=== PATIENT | female | born 1960 | race American Indian/Alaskan Native ===

== ENCOUNTER 2021-11-20 21:26 | Inpatient (IN) | payer MEDICAID ==
[2021-11-20] MEDS ORDERED: FLUORESCEIN 1 MG STRIP OP ONE (23:47)
[2021-11-20] MEDS ORDERED: HYDROmorphone 0.5 MG/0.5 ML INJ IV ONE (23:47)
[2021-11-20] MEDS ORDERED: TETRACAINE 0.5% OPHTH SOLN 4ML OS STA (23:47)
[2021-11-20] MEDS ORDERED: SODIUM CHLORIDE 0.9% 500 ML 500 ML IV ONE (23:47)
--- NOTE | 2021-11-20 23:48 | Emergency Department Report ---
ED General Adult HPI - General Chief complaint: Skin Rash Stated complaint: RASH Time Seen by Provider: 11/20/21 23:47 Source: patient, EMS ( EMS documentation not available at time of chart dictation ), RN notes reviewed Mode of arrival: Stretcher Limitations: Physical Limitation - History of Present Illness Initial comments: The patient was evaluated in the emergency department for symptoms described in the history of present illness. He/she was evaluated in the context of the global COVID-19 pandemic, which necessitated consideration that the patient might be at risk for infection with the virus that causes COVID-19. Institutional protocols and algorithms that pertain to the evaluation of patients at risk for COVID-19 are in a state of rapid change based on information released by regulatory bodies including the CDC and federal and state organizations. These policies and algorithms were followed during the patient's care in the emergency department. Please note that these policies, procedures and recommendations changed on a rapid basis. Nephrology: Dr. Valdez This is a 61-year-old female with a history of renal insufficiency, not on hemodialysis, hypertension, lupus, on Eliquis, for unclear reasons, PAD, reported bilateral lower extremity amputations, who presents to the ER today with a complaint of left supraorbital rash and pain for the past day or so. No loss of vision that she is aware of. No ocular pain. No additional injuries or complaints. She does not think she has had a chickenpox vaccine. She is not sure if she has had chickenpox in the past. To the patient's knowledge, she has not had shingles in the past -: days(s) Location: face Radiation: non-radiation Quality: aching, other (Burning aching and constant) Consistency: constant Improves with: medication Worsens with: movement - Related Data Allergies Allergy/AdvReac Type Severity Reaction Status Date / Time No Known Allergies Allergy Verified 11/20/21 23:57 ED Review of Systems ROS: Stated complaint: ALLERGIC REACTION Other details as noted in HPI Constitutional: denies: fever Eyes: eye discharge. denies: eye pain Respiratory: denies: cough Cardiovascular: denies: chest pain Gastrointestinal: denies: abdominal pain Skin: rash, lesions Neurological: weakness ED Past Medical Hx - Past Medical History Hx CVA: Yes ED Physical Exam - General Limitations: Physical Limitation General appearance: alert, anxious, in distress, obese - Head Head exam: Present: normocephalic - Eye Eye exam: Present: EOMI, periorbital swelling, periorbital tenderness, other (Fluorescein examination of the left eye shows no fluorescein uptake, no tendrils, no dendritic signs, and a negative Carri sign.). Absent: normal appearance (There is left supraorbital zoster rash.), nystagmus - ENT ENT exam: Present: normal exam, normal orophraynx, mucous membranes moist, normal external ear exam - Neck Neck exam: Present: normal inspection, full ROM. Absent: tenderness, meningismus - Respiratory Respiratory exam: Present: decreased breath sounds. Absent: respiratory distress, rhonchi, stridor - Cardiovascular Cardiovascular Exam: Present: normal rhythm, tachycardia, normal heart sounds. Absent: systolic murmur, diastolic murmur, rubs, gallop - GI/Abdominal GI/Abdominal exam: Present: soft. Absent: distended, tenderness, guarding, rebound, rigid, pulsatile mass - Extremities Exam Extremities exam: Present: full ROM (Left arm. Left leg. Contracture noted to the right arm.), other (2+ radial pulses noted in the bilateral upper extremities). Absent: normal inspection (Bilateral lower extremity amputations, chronic) - Back Exam Back exam: Present: normal inspection. Absent: tenderness, CVA tenderness (R), CVA tenderness (L), paraspinal tenderness, vertebral tenderness - Neurological Exam Neurological exam: Present: alert, other (There is no facial droop. The tongue is midline. EOMI. 5 out of 5 strength in 4 extremities) - Psychiatric Psychiatric exam: Present: anxious - Skin Skin exam: Present: warm, rash, erythema, other (Left-sided V1 zoster lesion with erythema and crusting) ED Course Vital Signs 11/20/21 11/20/21 11/21/21 21:26 23:52 00:00 Temperature 97 F L Pulse Rate 112 H Respiratory 18 Rate Blood Pressure 174/100 O2 Sat by Pulse 96 100 100 Oximetry 11/21/21 11/21/21 11/21/21 00:16 00:20 00:31 Temperature Pulse Rate 75 Respiratory 18 18 Rate Blood Pressure 181/103 O2 Sat by Pulse 100 98 98 Oximetry 11/21/21 11/21/21 11/21/21 00:45 01:01 01:15 Temperature Pulse Rate 72 75 76 Respiratory 19 19 19 Rate Blood Pressure 181/103 172/104 172/104 O2 Sat by Pulse 98 97 96 Oximetry ED Medical Decision Making - Lab Data Result diagrams: 11/20/21 23:52 11/20/21 23:52 Vital Signs 11/20/21 11/20/21 11/21/21 21:26 23:52 00:00 Temperature 97 F L Pulse Rate 112 H Respiratory 18 Rate Blood Pressure 174/100 O2 Sat by Pulse 96 100 100 Oximetry 11/21/21 11/21/21 11/21/21 00:16 00:20 00:31 Temperature Pulse Rate 75 Respiratory 18 18 Rate Blood Pressure 181/103 O2 Sat by Pulse 100 98 98 Oximetry 11/21/21 11/21/21 11/21/21 00:45 01:01 01:15 Temperature Pulse Rate 72 75 76 Respiratory 19 19 19 Rate Blood Pressure 181/103 172/104 172/104 O2 Sat by Pulse 98 97 96 Oximetry Lab Results 11/20/21 11/20/21 11/20/21 Range/Units 23:52 23:52 23:52 WBC 3.4 L (4.5-11.0) K/mm3 RBC 4.01 (3.65-5.03) M/mm3 Hgb 11.0 (10.1-14.3) gm/dl Hct 34.4 (30.3-42.9) % MCV 86 (79-97) fl MCH 27 L (28-32) pg MCHC 32 (30-34) % RDW 15.1 (13.2-15.2) % Plt Count 210 (140-440) K/mm3 PT 17.0 H (12.2-14.9) Sec. INR 1.23 H (0.87-1.13) Sodium 137 (137-145) mmol/L Potassium 5.2 H (3.6-5.0) mmol/L Chloride 104.8 (98-107) mmol/L Carbon Dioxide 14 L (22-30) mmol/L Anion Gap 23 mmol/L BUN 65 H (7-17) mg/dL Creatinine 8.7 H (0.6-1.2) mg/dL Estimated GFR 5 ml/min BUN/Creatinine Ratio 7 % Glucose 92 (65-100) mg/dL Calcium 7.0 L (8.4-10.2) mg/dL Total Bilirubin 0.40 (0.1-1.2) mg/dL AST 252 H (5-40) units/L ALT 142 H (7-56) units/L Alkaline Phosphatase 111 (35-129) units/L Total Creatine Kinase 79 (30-135) units/L Total Protein 8.7 H (6.3-8.2) g/dL Albumin 3.5 L (3.9-5) g/dL Albumin/Globulin Ratio 0.7 % - Medical Decision Making Differential diagnosis, including but not limited to: Shingles, zoster, hypertension, chronic renal insufficiency Assessment and plan: 61-year-old female presenting with a primary complaint of zoster in the left-sided V1 distribution. This is isolated, and not disseminated. The globe is not involved, and there is no dendrite, tendrils, and there is a negative Carri sign. EOMI. There appears to be reactive chemosis. Start patient on acyclovir 200 mg, every 12 hours, given GFR of 5. She received hydromorphone for pain, and this improved her pain. Transaminitis is of uncertain chronicity and duration. Recommend admission to the medical service for observation, and evaluation of chronic renal insufficiency. Patient is agreeable to the plan of care. Contacted covering nephrology on-call, Dr. López. She is covering for Dr. Valdez. Nephrology will follow in consultation. Hospital physicianChapis to admit Give gentle fluids for metabolic acidosis. Medical decision makin-year-old female, immune compromise, poor mobility, left-sided V1 zoster, without globe involvement at this time, complicated by renal insufficiency and metabolic acidosis, requires renal dosing of acyclovir, and close monitoring. Critical care attestation.: If time is entered above; I have spent that time in minutes in the direct care of this critically ill patient, excluding procedure time. ED Disposition Clinical Impression: Zoster, Chronic renal insufficiency, stage V, Metabolic acidosis Disposition: ADMITTED INPATIENT Is pt being admited?: Yes Does the pt Need Aspirin: No Condition: Fair
[2021-11-21 00:30] LABS: Hematocrit 34.4 % (30.3-42.9); Mean Corpuscular HGB Conc 32 % (30-34); Mean Corpuscular Volume 86 fl (79-97); Platelet Count 210 K/mm3 (140-440); Red Blood Count 4.01 M/mm3 (3.65-5.03); Red Cell Distribution Width 15.1 % (13.2-15.2)
[2021-11-21 00:43] LABS: INR 1.23 (0.87-1.13)
[2021-11-21 00:48] LABS: Albumin 3.5 g/dL (3.9-5)
[2021-11-21] MEDS ORDERED: SODIUM CHLORIDE 0.9% IV STA (01:42)
[2021-11-21] MEDS ORDERED: ACYCLOVIR IV STA (01:42)
[2021-11-21] MEDS: hydrALAZINE 20 MG/1 ML INJ IV PRN (05:00)
[2021-11-21] MEDS ORDERED: MORPHINE 2 MG/1 ML INJ IV PRN (05:04)
[2021-11-21] MEDS ORDERED: ALBUTEROL 2.5 MG/3 ML NEBU IH PRN (05:04)
[2021-11-21] MEDS ORDERED: ACETAMINOPHEN 325 MG TAB PO PRN (05:04)
[2021-11-21] MEDS ORDERED: ONDANSETRON 4 MG/2 ML INJ IV PRN (05:04)
[2021-11-21] MEDS ORDERED: hydrALAZINE 20 MG/1 ML INJ IV PRN (05:09)
--- NOTE | 2021-11-21 05:12 | History and Physical Report ---
History of Present Illness Date of examination: 11/21/21 Date of admission: 11/21/21 Chief complaint: Zoster infection Skin rash History of present illness: 61-year-old female with a history of renal insufficiency, not on hemodialysis, hypertension, lupus, on Eliquis, for unclear reasons, PAD, reported bilateral lower extremity amputations, who presents to the ER today with a complaint of left supraorbital rash and pain for the past day or so. No loss of vision that she is aware of. No ocular pain. No additional injuries or complaints. She does not think she has had a chickenpox vaccine. She is not sure if she has had chickenpox in the past. To the patient's knowledge, she has not had shingles in the past In the emergency room patient is found to have BUN of 65 creatinine 8.7, potassium 5.2 so going to admit the patient will consult nephrology for evaluation also will consult infectious disease for zoster infection Past History Past Medical History: renal failure, stroke, other (Lupus, PAD) Past Surgical History: Other (Bilateral lower extremity amputation) Medications and Allergies Allergies Allergy/AdvReac Type Severity Reaction Status Date / Time No Known Allergies Allergy Verified 11/20/21 23:57 Active Meds: Active Medications Acetaminophen (Acetaminophen 325 Mg Tab) 650 mg PO Q4H PRN PRN Reason: Pain MILD(1-3)/Fever >100.5/DAVIS Albuterol (Albuterol 2.5 Mg/3 Ml Nebu) 2.5 mg IH Q3HRT PRN PRN Reason: Shortness Of Breath Albuterol/Ipratropium (Ipratropium/Albuterol Sulfate 3 Ml Ampul.Neb) 1 ampul IH Q6HRT JIMMY Famotidine (Famotidine 20 Mg Tab) 20 mg PO BID JIMMY Heparin Sodium (Porcine) (Heparin 5,000 Unit/1 Ml Vial) 5,000 unit SUB-Q Q12HR JIMMY Sodium Chloride (Nacl 0.45% 1000 Ml) 1,000 mls @ 100 mls/hr IV DIRECT JIMMY Acyclovir 750 mg/ Sodium (Chloride) 115 mls @ 100 mls/hr IV Q8HR JIMMY; Protocol Morphine Sulfate (Morphine 2 Mg/1 Ml Inj) 2 mg IV Q4H PRN PRN Reason: Pain, Moderate (4-6) Morphine Sulfate (Morphine 4 Mg/1 Ml Inj) 4 mg IV Q4H PRN PRN Reason: Pain , Severe (7-10) Ondansetron HCl (Ondansetron 4 Mg/2 Ml Inj) 4 mg IV Q8H PRN PRN Reason: Nausea And Vomiting Sodium Chloride (Sodium Chloride 0.9% 10 Ml Flush Syringe) 10 ml IV BID JIMMY Sodium Chloride (Sodium Chloride 0.9% 10 Ml Flush Syringe) 10 ml IV PRN PRN PRN Reason: LINE FLUSH Review of Systems All systems: negative Constitutional: other (Skin rash, zoster infection) Exam - Constitutional Vitals: Temp Pulse Resp BP Pulse Ox 97 F L 108 H 22 188/131 63 L 11/20/21 21:26 11/21/21 03:15 11/21/21 03:15 11/21/21 03:15 11/21/21 03:15 General appearance: Present: no acute distress, well-nourished - EENT Eyes: Present: PERRL ENT: hearing intact, clear oral mucosa, other ( left supraorbital rash and pain) - Neck Neck: Present: supple, normal ROM - Respiratory Respiratory effort: normal Respiratory: bilateral: CTA - Cardiovascular Heart Sounds: Present: S1 & S2. Absent: rub, click - Extremities Extremities: pulses symmetrical, No edema Peripheral Pulses: within normal limits - Abdominal General gastrointestinal: Present: soft, non-tender, non-distended, normal bowel sounds Female genitourinary: Present: normal - Integumentary Integumentary: Present: clear, warm, dry - Musculoskeletal Musculoskeletal: gait normal, strength equal bilaterally - Psychiatric Psychiatric: appropriate mood/affect, intact judgment & insight - Neurologic Neurologic: CNII-XII intact, moves all extremities Results - Labs CBC & Chem 7: 11/20/21 23:52 11/20/21 23:52 Labs: Laboratory Last Values WBC 3.4 K/mm3 (4.5-11.0) L 11/20/21 23:52 RBC 4.01 M/mm3 (3.65-5.03) 11/20/21 23:52 Hgb 11.0 gm/dl (10.1-14.3) 11/20/21 23:52 Hct 34.4 % (30.3-42.9) 11/20/21 23:52 MCV 86 fl (79-97) 11/20/21 23:52 MCH 27 pg (28-32) L 11/20/21 23:52 MCHC 32 % (30-34) 11/20/21 23:52 RDW 15.1 % (13.2-15.2) 11/20/21 23:52 Plt Count 210 K/mm3 (140-440) 11/20/21 23:52 PT 17.0 Sec. (12.2-14.9) H 11/20/21 23:52 INR 1.23 (0.87-1.13) H 11/20/21 23:52 Sodium 137 mmol/L (137-145) 11/20/21 23:52 Potassium 5.2 mmol/L (3.6-5.0) H 11/20/21 23:52 Chloride 104.8 mmol/L (98-107) 11/20/21 23:52 Carbon Dioxide 14 mmol/L (22-30) L 11/20/21 23:52 Anion Gap 23 mmol/L 11/20/21 23:52 BUN 65 mg/dL (7-17) H 11/20/21 23:52 Creatinine 8.7 mg/dL (0.6-1.2) H 11/20/21 23:52 Estimated GFR 5 ml/min 11/20/21 23:52 BUN/Creatinine Ratio 7 % 11/20/21 23:52 Glucose 92 mg/dL (65-100) 11/20/21 23:52 Calcium 7.0 mg/dL (8.4-10.2) L 11/20/21 23:52 Total Bilirubin 0.40 mg/dL (0.1-1.2) 11/20/21 23:52 AST 252 units/L (5-40) H 11/20/21 23:52 ALT 142 units/L (7-56) H 11/20/21 23:52 Alkaline Phosphatase 111 units/L (35-129) 11/20/21 23:52 Total Creatine Kinase 79 units/L (30-135) 11/20/21 23:52 Total Protein 8.7 g/dL (6.3-8.2) H 11/20/21 23:52 Albumin 3.5 g/dL (3.9-5) L 11/20/21 23:52 Albumin/Globulin Ratio 0.7 % 11/20/21 23:52 Assessment and Plan VTE prophylaxis?: Chemical Plan of care discussed with patient/family: Yes - Patient Problems (1) Zoster Current Visit: Yes Status: Acute Plan to address problem: Admit the patient to the medical telemetry. We will put the patient on acyclovir 10 mg/kg IV every 8 hours. Reconsult infectious disease for evaluation. Recheck CBC BMP in the morning (2) Chronic renal insufficiency, stage V Current Visit: Yes Status: Acute Plan to address problem: Avoid nephrotoxic drug. Renally dose medication. Reconsult nephrology for evaluation. Recheck BMP in the morning (3) Lupus Current Visit: Yes Status: Acute Plan to address problem: Stable. We will continue the home medication (4) PAD (peripheral artery disease) Current Visit: Yes Status: Acute Plan to address problem: Stable. We will continue the home medication (5) Metabolic acidosis Current Visit: Yes Status: Acute Plan to address problem: Half-normal saline at the rate of 600 cc/h. We will continue the home medication. Nephrology evaluation. Recheck BMP in the morning (6) DVT prophylaxis Current Visit: Yes Status: Acute Plan to address problem: Heparin 5000 units subcu every 12 hours for DVT prophylaxis. Pepcid 20 mg p.o. twice daily for GI prophylaxis. Patient is a full code
[2021-11-21] MEDS ORDERED: SODIUM CHLORIDE 0.9% IV SCH (06:00)
[2021-11-21] MEDS ORDERED: SODIUM CHLORIDE 0.45% 1000 ML 1,000 ML IV SCH (06:00)
[2021-11-21] MEDS ORDERED: ACYCLOVIR IV SCH (06:00)
[2021-11-21] MEDS: MORPHINE 4 MG/1 ML INJ IV PRN ×2 (08:34→14:06)
[2021-11-21] MEDS ORDERED: hydrALAZINE 20 MG/1 ML INJ IV NR (08:44)
--- NOTE | 2021-11-21 08:48 | Event Note ---
Date: 11/21/21 Patient was admitted this morning at 5:00 Nurse reports that patient's blood pressures are uncontrolled 192/123 patient has 100 mg of metoprolol due for 10:00 advised to give now Also added and IV hydralazine as needed and p.o. hydralazine
[2021-11-21] MEDS ORDERED: METOPROLOL TARTRATE 100 MG TAB PO SCH (10:00)
[2021-11-21] MEDS ORDERED: FAMOTIDINE 20 MG TAB PO SCH (10:00)
[2021-11-21] MEDS: HEPARIN 5,000 UNIT/1 ML VIAL SUB-Q SCH ×2 (10:05→22:49)
[2021-11-21] MEDS: FAMOTIDINE 10 MG TAB PO SCH ×2 (10:06→22:49)
[2021-11-21] MEDS: IPRATROPIUM/ALBUTEROL SULFATE 3 ML AMPUL.NEB IH SCH ×2 (10:08→14:14)
[2021-11-21] MEDS: METOPROLOL TARTRATE 100 MG TAB PO SCH (10:35)
--- NOTE | 2021-11-21 14:00 | Progress Note ---
Assessment and Plan Assessment and plan: 61-year-old female patient with history of chronic kidney disease follows with Dr. Valdez not on dialysis lupus, hypertension ,peripheral artery disease status post bilateral amputation presented to the emergency room with the complaints of left supraorbital and forehead rash/shingles for the last 4-5 days.Patient is unable to give the details. She reports that she discussed with her primary care physician , And he gave some treatment instructions --Zoster/shingles[left upper supraorbital area and forehead] Pain medications, local care Continue acyclovir, contact isolation Follow ID evaluation recommendations Wound care if needed --Chronic renal insufficiency, stage V Not on dialysis closely , follows with Dr. Valdez monitor renal function, avoid nephrotoxins Follow nephrology recommendations Gentle hydration -- History of lupus upus Continue supportive care Immunocompromised -- History of PAD (peripheral artery disease) Bilateral LE amputations Supportive care, --Bilateral lower extremity amputations; Due to peripheral arterial disease --History of hypertensive urgency; present on admission Resume all home antihypertensives and as needed medications Closely monitor blood pressures --Metabolic acidosis Due to chronic kidney disease stage V Continue IV fluids, nephrology following --Full CODE STATUS -DVT prophylaxis Subcu Heparin 5000 units every 12 hours GI prophylaxis oral Pepcid We will closely monitor the patient and adjust management as needed follow consults evaluation and recommendations Plan of care reviewed with the patient and her nurse Try to contact family for more medical information Prolonged care inpatient; 35 minutes Advance care planning; +30 minutes Patient's condition discussed with the patient, diagnosis discussed, tests and reports discussed Treatment plan discussed, patient had questions, answered all of them Try to contact family and get more medical information. History Interval history: I have seen and examined the patient at the bedside in ER awaiting room assignment Patient's chart and medications reviewed, vital signs reviewed Patient was admitted early this morning with the complaints of rash on left supraorbital area and around the left eye for the last 1 week, did not see a physician as patient refused to come to the hospital Now complains of some pain and eye watering on the left side Afebrile, patient is on IV acyclovir Hospitalist Physical - Constitutional Vitals: Temp Pulse Resp BP Pulse Ox 97 F L 77 17 156/95 97 11/20/21 21:26 11/21/21 12:15 11/21/21 12:15 11/21/21 12:15 11/21/21 12:15 General appearance: Present: mild distress, well-nourished, other (Shingles rash on the left supraorbital/forehead area, upper aspect ) - EENT Eyes: Present: PERRL (Left eye mild swelling, watering, supraorbital rash. Matting) - Neck Neck: Present: supple, normal ROM - Respiratory Respiratory effort: normal Respiratory: bilateral: diminished, negative: rales, rhonchi, wheezing - Cardiovascular Rhythm: regular Heart Sounds: Present: S1 & S2 - Extremities Extremities: no ischemia, No edema, abnormal (Bilateral AKA/BKA) - Abdominal General gastrointestinal: soft, non-tender, non-distended - Integumentary Integumentary: Present: clear, warm, rash (Left supraorbital and around the upper eyelid) - Psychiatric Psychiatric: appropriate mood/affect, cooperative - Neurologic Neurologic: moves all extremities Results - Labs CBC & Chem 7: 11/20/21 23:52 11/20/21 23:52 Labs: Laboratory Last Values WBC 3.4 K/mm3 (4.5-11.0) L 11/20/21 23:52 RBC 4.01 M/mm3 (3.65-5.03) 11/20/21 23:52 Hgb 11.0 gm/dl (10.1-14.3) 11/20/21 23:52 Hct 34.4 % (30.3-42.9) 11/20/21 23:52 MCV 86 fl (79-97) 11/20/21 23:52 MCH 27 pg (28-32) L 11/20/21 23:52 MCHC 32 % (30-34) 11/20/21 23:52 RDW 15.1 % (13.2-15.2) 11/20/21 23:52 Plt Count 210 K/mm3 (140-440) 11/20/21 23:52 PT 17.0 Sec. (12.2-14.9) H 11/20/21 23:52 INR 1.23 (0.87-1.13) H 11/20/21 23:52 Sodium 137 mmol/L (137-145) 11/20/21 23:52 Potassium 5.2 mmol/L (3.6-5.0) H 11/20/21 23:52 Chloride 104.8 mmol/L (98-107) 11/20/21 23:52 Carbon Dioxide 14 mmol/L (22-30) L 11/20/21 23:52 Anion Gap 23 mmol/L 11/20/21 23:52 BUN 65 mg/dL (7-17) H 11/20/21 23:52 Creatinine 8.7 mg/dL (0.6-1.2) H 11/20/21 23:52 Estimated GFR 5 ml/min 11/20/21 23:52 BUN/Creatinine Ratio 7 % 11/20/21 23:52 Glucose 92 mg/dL (65-100) 11/20/21 23:52 Calcium 7.0 mg/dL (8.4-10.2) L 11/20/21 23:52 Total Bilirubin 0.40 mg/dL (0.1-1.2) 11/20/21 23:52 AST 252 units/L (5-40) H 11/20/21 23:52 ALT 142 units/L (7-56) H 11/20/21 23:52 Alkaline Phosphatase 111 units/L (35-129) 11/20/21 23:52 Total Creatine Kinase 79 units/L (30-135) 11/20/21 23:52 Total Protein 8.7 g/dL (6.3-8.2) H 11/20/21 23:52 Albumin 3.5 g/dL (3.9-5) L 11/20/21 23:52 Albumin/Globulin Ratio 0.7 % 11/20/21 23:52 Active Medications - Current Medications Current Medications: Generic Name Dose Route Start Last Admin Trade Name Freq PRN Reason Stop Dose Admin Acetaminophen 650 mg 11/21/21 05:04 Acetaminophen 325 Mg Tab PO Q4H PRN Pain MILD(1-3)/Fever >100.5/DAVIS Albuterol 2.5 mg 11/21/21 05:04 Albuterol 2.5 Mg/3 Ml Nebu IH Q3HRT PRN Shortness Of Breath Albuterol/Ipratropium 1 ampul 11/21/21 08:00 11/21/21 10:08 Ipratropium/Albuterol Sulfate 3 Ml Ampul.Neb IH 1 ampul Q6HRT JIMMY Administration Famotidine 10 mg 11/21/21 10:00 11/21/21 10:06 Famotidine 10 Mg Tab PO 10 mg BID JIMMY Administration Heparin Sodium (Porcine) 5,000 unit 11/21/21 10:00 11/21/21 10:05 Heparin 5,000 Unit/1 Ml Vial SUB-Q 5,000 unit Q12HR JIMMY Administration Hydralazine HCl 10 mg 11/21/21 05:15 11/21/21 05:00 Hydralazine 20 Mg/1 Ml Inj IV 10 mg Q6H PRN Administration Hypertension Hydralazine HCl 50 mg 11/21/21 14:00 Hydralazine 25 Mg Tab PO Q8HR JIMMY Sodium Chloride 1,000 mls @ 100 mls/hr 11/21/21 06:00 11/21/21 05:00 Nacl 0.45% 1000 Ml IV 100 mls/hr DIRECT JIMMY Administration Acyclovir 320 mg/ Sodium 106.4 mls @ 100 mls/hr 11/21/21 18:00 Chloride IV Q24H [facility] Protocol Metoprolol Tartrate 100 mg 11/21/21 10:00 11/21/21 10:35 Metoprolol Tartrate 100 Mg Tab PO 100 mg QDAY JIMMY Administration Morphine Sulfate 2 mg 11/21/21 05:04 Morphine 2 Mg/1 Ml Inj IV Q4H PRN Pain, Moderate (4-6) Morphine Sulfate 4 mg 11/21/21 05:04 11/21/21 08:34 Morphine 4 Mg/1 Ml Inj IV 4 mg Q4H PRN Administration Pain , Severe (7-10) Ondansetron HCl 4 mg 11/21/21 05:04 Ondansetron 4 Mg/2 Ml Inj IV Q8H PRN Nausea And Vomiting Sodium Chloride 10 ml 11/21/21 10:00 11/21/21 10:36 Sodium Chloride 0.9% 10 Ml Flush Syringe IV 10 ml BID JIMMY Administration Sodium Chloride 10 ml 11/21/21 05:04 Sodium Chloride 0.9% 10 Ml Flush Syringe IV PRN PRN LINE FLUSH
[2021-11-21] MEDS: hydrALAZINE 25 MG TAB PO SCH ×2 (14:06→22:49)
--- NOTE | 2021-11-21 16:32 | Consultation ---
History of Present Illness - Reason for Consult Consult date: 11/21/21 chronic renal failure - History of Present Illness Mrs. Prajapati is a 61yo with stage V CKD (SCr 4.8mg/dL in Apr 2021), hype rtension, SLE who presents to the ED with 1 day hx of left supraorbital rash Presently, she denies nausea, vomiting, loss of appetite. She denies SOB. Past History Past Medical History: renal failure, stroke, other (Lupus, PAD) Past Surgical History: Other (Bilateral lower extremity amputation) Medications and Allergies Allergies Allergy/AdvReac Type Severity Reaction Status Date / Time No Known Allergies Allergy Verified 11/20/21 23:57 Home Medications Medication Instructions Recorded Confirmed Last Taken Type Metoprolol 100 mg PO DAILY 11/21/21 11/21/21 11/20/21 History Active Meds: Active Medications Acetaminophen (Acetaminophen 325 Mg Tab) 650 mg PO Q4H PRN PRN Reason: Pain MILD(1-3)/Fever >100.5/DAVIS Albuterol (Albuterol 2.5 Mg/3 Ml Nebu) 2.5 mg IH Q3HRT PRN PRN Reason: Shortness Of Breath Albuterol/Ipratropium (Ipratropium/Albuterol Sulfate 3 Ml Ampul.Neb) 1 ampul IH Q6HRT [facility] Last Admin: 11/21/21 14:14 Dose: 1 ampul Famotidine (Famotidine 10 Mg Tab) 10 mg PO BID [facility] Last Admin: 11/21/21 10:06 Dose: 10 mg Furosemide (Furosemide 40 Mg/4 Ml Inj) 40 mg IV ONCE ONE Stop: 11/21/21 17:01 Heparin Sodium (Porcine) (Heparin 5,000 Unit/1 Ml Vial) 5,000 unit SUB-Q Q12HR JIMMY Last Admin: 11/21/21 10:05 Dose: 5,000 unit Hydralazine HCl (Hydralazine 20 Mg/1 Ml Inj) 10 mg IV Q6H PRN PRN Reason: Hypertension Last Admin: 11/21/21 05:00 Dose: 10 mg Hydralazine HCl (Hydralazine 25 Mg Tab) 50 mg PO Q8HR [facility] Last Admin: 11/21/21 14:06 Dose: 50 mg Acyclovir 320 mg/ Sodium (Chloride) 106.4 mls @ 100 mls/hr IV Q24H [facility]; Protocol Metoprolol Tartrate (Metoprolol Tartrate 100 Mg Tab) 100 mg PO QDAY [facility] Last Admin: 11/21/21 10:35 Dose: 100 mg Morphine Sulfate (Morphine 2 Mg/1 Ml Inj) 2 mg IV Q4H PRN PRN Reason: Pain, Moderate (4-6) Ondansetron HCl (Ondansetron 4 Mg/2 Ml Inj) 4 mg IV Q8H PRN PRN Reason: Nausea And Vomiting Oxycodone/Acetaminophen (Oxycodone /Acetaminophen 5-325mg Tab) 1 tab PO Q6H PRN PRN Reason: Pain, Moderate (4-6) Sodium Chloride (Sodium Chloride 0.9% 10 Ml Flush Syringe) 10 ml IV BID [facility] Last Admin: 11/21/21 10:36 Dose: 10 ml Sodium Chloride (Sodium Chloride 0.9% 10 Ml Flush Syringe) 10 ml IV PRN PRN PRN Reason: LINE FLUSH Review of Systems All systems: negative Exam - Vital Signs Vital signs: Vital Signs Temp Pulse Resp BP Pulse Ox 97 F L 112 H 18 174/100 96 11/20/21 21:26 11/20/21 21:26 11/20/21 21:26 11/20/21 21:26 11/20/21 21:26 - General Appearance General appearance: well-developed, well-nourished EENT: other (vesicular rash involving left eye, forehead, mandaeism; crusting lesions) Respiratory: Clear to Ascultation Heart: regular, S1S2 Gastrointestinal: Present: normal Integumentary: warm and dry Musculoskeletal: Present: other (bilateral LE amputation) Results - Lab Results 11/20/21 23:52 11/20/21 23:52 Most recent lab results Calcium 7.0 mg/dL (8.4-10.2) L 11/20/21 23:52 Assessment and Plan Impression: * Stage V CKD --SCr 4.8mg/dL in Apr 2021 * Herpes zoster * Hyperkalemia, mild * Metabolic acidosis Plan: * Patient with progression of chronic kidney disease. She reports that dialysis was discussed at previous nephrology follow up visit. Advised patient of need for hemodialysis. Patient adamantly refuses dialysis. She states that her mother on dialysis. Patient advised that without dialysis, she will likely from kidney failure. Patient voiced understanding. * Start Na bicarbonate * Antiviral per primary team * ID consultation pending * Dose medications for renal function * Avoid potential nephrotoxins * AM labs
[2021-11-21] MEDS ORDERED: FUROSEMIDE 40 MG/4 ML INJ IV ONE (17:00)
--- NOTE | 2021-11-21 17:16 | XRay Report ---
CHEST 1 VIEW 11/21/2021 4:46 PM INDICATION / CLINICAL INFORMATION: Cough. COMPARISON: None available. FINDINGS: The patient is rotated. SUPPORT DEVICES: None. HEART / MEDIASTINUM: There is a hiatal hernia. LUNGS / PLEURA: There is suboptimal evaluation of the right lung secondary to patient rotation. There appears to be mild venous congestion. No pneumothorax. ADDITIONAL FINDINGS: No significant additional findings. IMPRESSION: 1. Mild venous congestion. There is a hiatal hernia. The right lung is not well evaluated due to ed ent rotation. Signer Name: Keith No MD Signed: 11/21/2021 5:11 PM Workstation Name: [id number]
[2021-11-21] MEDS: ACYCLOVIR IV SCH (18:44)
[2021-11-21] MEDS: SODIUM CHLORIDE 0.9% IV SCH (18:44)
[2021-11-22] MEDS: hydrALAZINE 25 MG TAB PO SCH ×3 (05:47→21:16)
[2021-11-22 06:44] LABS: Basophils % (Auto) 0.6 % (0.0-1.8); Eosinophils # (Auto) 0.1 K/mm3 (0.0-0.4); Eosinophils % (Auto) 1.9 % (0.0-4.3); Hematocrit 34.3 % (30.3-42.9); Hemoglobin 11.1 gm/dl (10.1-14.3); Lymphocytes # (Auto) 1.8 K/mm3 (1.2-5.4); Lymphocytes % (Auto) 40.9 % (13.4-35.0); Mean Corpuscular HGB Conc 33 % (30-34); Mean Corpuscular Volume 86 fl (79-97); Monocytes # (Auto) 0.5 K/mm3 (0.0-0.8); Monocytes % (Auto) 10.8 % (0.0-7.3); Platelet Count 186 K/mm3 (140-440); Red Blood Count 3.97 M/mm3 (3.65-5.03); Red Cell Distribution Width 15.7 % (13.2-15.2)
[2021-11-22 06:57] LABS: Calcium 6.1 mg/dL (8.4-10.2)
[2021-11-22] MEDS ORDERED: SODIUM POLYSTYRENE 15 GM/60 ML ORAL LIQD PO NR (09:30)
--- NOTE | 2021-11-22 09:41 | Progress Note ---
Assessment and Plan Impression: * Stage V CKD --SCr 4.8mg/dL in Apr 2021 * Herpes zoster * Hyperkalemia * Metabolic acidosis * Secondary Hyperparathyroidism * Azotemia * Transaminitis * Hypertension Plan: * Patient with progression of chronic kidney disease. Patient well known to myself for CKD, has been refusing dialysis in generally but has stated "would do it" if needed. Advised patient of need for hemodialysis now given current renal indices. Patient adamantly refuses dialysis for now, wants to go with medical therapies. She states that her mother on dialysis. Patient advised that without dialysis, she will likely from kidney failure. Manasa ent voiced understanding. * Of note, patient has had difficulty with transportation as outpatient which has made regular doctors visits difficult to coordinate- high risk for decompensation given her social issues (never followed with hematology, vascular as recommended) * Continue Na bicarbonate, may need IV HCO3 if continuing to worsen * Kayexlyate for hyperkalemia, may need regularly * Restart home calcitriol, calcium acetate * Antiviral per primary team, ID * Dose medications for renal function * Avoid potential nephrotoxins * AM labs Subjective Date of service: 11/22/21 Interval history: Seen at bedside. Patient denies any uremic symptoms currently. Notes that she can open eye if she needs to Objective - Exam Narrative Exam: General appearance: well-developed, well-nourished EENT: other (vesicular rash involving left eye, forehead, yazidi; crusting lesions) Respiratory: Clear to Ascultation Heart: regular, S1S2 Gastrointestinal: Present: normal Integumentary: warm and dry Musculoskeletal: Present: other (bilateral LE amputation) - Vital Signs Vital signs: Vital Signs - 12hr 11/21/21 11/22/21 11/22/21 22:00 02:23 02:35 Temperature Pulse Rate 115 H Respiratory Rate Blood Pressure [Right] O2 Sat by Pulse 98 98 Oximetry 11/22/21 11/22/21 04:23 09:13 Temperature 100.0 F H Pulse Rate 119 H Respiratory 20 Rate Blood Pressure 151/97 [Right] O2 Sat by Pulse 96 96 Oximetry - Lab 11/22/21 06:08 11/22/21 06:08 Most recent lab results Calcium 6.1 mg/dL (8.4-10.2) L 11/22/21 06:08 Medications & Allergies - Medications Allergies/Adverse Reactions: Allergies No Known Allergies Allergy (Verified 11/20/21 23:57) Home Medications: Home Medications Medication Instructions Recorded Confirmed Last Taken Type Metoprolol 100 mg PO DAILY 11/21/21 11/21/21 11/20/21 History Active Medications: Generic Name Dose Route Start Last Admin Trade Name Freq PRN Reason Stop Dose Admin Acetaminophen 650 mg 11/21/21 05:04 Acetaminophen 325 Mg Tab PO Q4H PRN Pain MILD(1-3)/Fever >100.5/DAVIS Albuterol 2.5 mg 11/21/21 05:04 Albuterol 2.5 Mg/3 Ml Nebu IH Q3HRT PRN Shortness Of Breath Famotidine 10 mg 11/21/21 10:00 11/21/21 22:49 Famotidine 10 Mg Tab PO 10 mg BID JIMMY Administration Heparin Sodium (Porcine) 5,000 unit 11/21/21 10:00 11/21/21 22:49 Heparin 5,000 Unit/1 Ml Vial SUB-Q 5,000 unit Q12HR JIMMY Administration Hydralazine HCl 10 mg 11/21/21 05:15 11/21/21 05:00 Hydralazine 20 Mg/1 Ml Inj IV 10 mg Q6H PRN Administration Hypertension Hydralazine HCl 50 mg 11/21/21 14:00 11/22/21 05:47 Hydralazine 25 Mg Tab PO 50 mg Q8HR JIMMY Administration Acyclovir 320 mg/ Sodium 106.4 mls @ 100 mls/hr 11/21/21 18:00 11/21/21 18:44 Chloride IV 100 mls/hr Q24H JIMMY Administration Protocol Metoprolol Tartrate 100 mg 11/21/21 10:00 11/21/21 10:35 Metoprolol Tartrate 100 Mg Tab PO 100 mg QDAY JIMMY Administration Morphine Sulfate 2 mg 11/21/21 05:04 Morphine 2 Mg/1 Ml Inj IV Q4H PRN Pain, Moderate (4-6) Ondansetron HCl 4 mg 11/21/21 05:04 Ondansetron 4 Mg/2 Ml Inj IV Q8H PRN Nausea And Vomiting Oxycodone/Acetaminophen 1 tab 11/21/21 16:22 Oxycodone /Acetaminophen 5-325mg Tab PO Q6H PRN Pain, Moderate (4-6) Pneumococcal Polyvalent Vaccine 0.5 ml 11/22/21 12:00 Pneumococcal 23 Valent 0.5 Ml Vial IM 11/22/21 12:01 .ONCE ONE Sodium Bicarbonate 1,950 mg 11/22/21 08:00 Sodium Bicarbonate 650 Mg Tab PO TID JIMMY Sodium Chloride 10 ml 11/21/21 10:00 11/21/21 22:49 Sodium Chloride 0.9% 10 Ml Flush Syringe IV 10 ml BID JIMMY Administration Sodium Chloride 10 ml 11/21/21 05:04 Sodium Chloride 0.9% 10 Ml Flush Syringe IV PRN PRN LINE FLUSH Sodium Polystyrene Sulfonate 30 gm 11/22/21 09:30 Sodium Polystyrene 15 Gm/60 Ml Oral Liqd PO 11/22/21 12:30 ONCE NR
--- NOTE | 2021-11-22 10:07 | Progress Note ---
Assessment and Plan Assessment and plan: 61-year-old female patient with history of chronic kidney disease follows with Dr. Valdez not on dialysis lupus, hypertension ,peripheral artery disease status post bilateral amputation presented to the emergency room with the complaints of left supraorbital and forehead rash/shingles for the last 4-5 days.Patient is unable to give the details. She reports that she discussed with her primary care physician , And he gave some treatment instructions --Hyperkalemia; IV calcium gluconate, Kayexalate Nephrology following -Herpes zoster/shingles[left upper supraorbital area and forehead] Pain medications, local care Continue acyclovir, contact isolation Follow pending ID evaluation and recommendations Wound care if needed, without superimposed bacterial infection No visual defect, patient is able to count the fingers and read big print Patient needs ophthalmology evaluation upon discharge[no services available] Follow ID evaluation recommendations --Chronic renal insufficiency, stage V Not on dialysis closely , follows with Dr. 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 Stable Continue supportive care --History of of lupus Continue supportive care Immunocompromised -- History of PAD (peripheral artery disease) Bilateral LE amputations Supportive care, --Bilateral lower extremity amputations; Due to peripheral arterial disease --History of hypertensive urgency; present on admission Resume all home antihypertensives and as needed medications Closely monitor blood pressures --Metabolic acidosis Due to chronic kidney disease stage V Continue IV fluids, nephrology following --Full CODE STATUS -DVT prophylaxis Subcu Heparin 5000 units every 12 hours GI prophylaxis oral Pepcid We will closely monitor the patient and adjust management as needed follow consults evaluation and recommendations Plan of care reviewed with the patient and her nurse Try to contact family for more medical information Advance care planning; +30 minutes Patient's condition discussed with the patient, diagnosis discussed, tests and reports discussed Treatment plan discussed, patient had questions, answered all of them Try to contact family and get more medical information. 11/23/2019; patient is on IV acyclovir, nephrology evaluated Medications of renally dosed, gentle opening of the left eye Patient found for fevers, and read the big print. History Interval history: I have seen and examined the patient at the bedside Patient's chart and medications reviewed Patient feels slightly better Patient has severe dysarthria due to multiple strokes in the past Periorbital area and left forehead herpes zoster[of 7-9 days duration] Vital signs noted Hospitalist Physical - Constitutional Vitals: Temp Pulse Resp BP Pulse Ox 98.7 F 124 H 18 147/90 96 11/22/21 08:00 11/22/21 08:00 11/22/21 08:00 11/22/21 08:00 11/22/21 09:13 General appearance: Present: mild distress, well-nourished, other (Shingles rash on the left supraorbital/forehead area, upper aspect ) - EENT Eyes: Present: discharge (Left eyelid, edematous, zoster lesions, able to open gently, vision intact) - Neck Neck: Present: supple, normal ROM - Respiratory Respiratory effort: normal Respiratory: bilateral: diminished, negative: rales, rhonchi, wheezing - Cardiovascular Rhythm: regular Heart Sounds: Present: S1 & S2 - Extremities Extremities: no ischemia, abnormal (Bilateral amputation) Extremity abnormal: other (Right upper extremity lower extremity hemiparesis) - Abdominal General gastrointestinal: soft, non-tender, non-distended, normal bowel sounds - Integumentary Integumentary: Present: clear, warm, rash (Is also a rash left forehead and periorbital area mainly upper eyelid) - Psychiatric Psychiatric: appropriate mood/affect - Neurologic Neurologic: other (Multiple CVA with residual right-sided weakness and dysarthria) Results - Labs CBC & Chem 7: 11/22/21 06:08 11/22/21 06:08 Labs: Laboratory Last Values WBC 4.3 K/mm3 (4.5-11.0) L 11/22/21 06:08 RBC 3.97 M/mm3 (3.65-5.03) 11/22/21 06:08 Hgb 11.1 gm/dl (10.1-14.3) 11/22/21 06:08 Hct 34.3 % (30.3-42.9) 11/22/21 06:08 MCV 86 fl (79-97) 11/22/21 06:08 MCH 28 pg (28-32) 11/22/21 06:08 MCHC 33 % (30-34) 11/22/21 06:08 RDW 15.7 % (13.2-15.2) H 11/22/21 06:08 Plt Count 186 K/mm3 (140-440) 11/22/21 06:08 Lymph % (Auto) 40.9 % (13.4-35.0) H 11/22/21 06:08 [place] % (Auto) 10.8 % (0.0-7.3) H 11/22/21 06:08 Eos % (Auto) 1.9 % (0.0-4.3) 11/22/21 06:08 Baso % (Auto) 0.6 % (0.0-1.8) 11/22/21 06:08 Lymph # (Auto) 1.8 K/mm3 (1.2-5.4) 11/22/21 06:08 [place] # (Auto) 0.5 K/mm3 (0.0-0.8) 11/22/21 06:08 Eos # (Auto) 0.1 K/mm3 (0.0-0.4) 11/22/21 06:08 Baso # (Auto) 0.0 K/mm3 (0.0-0.1) 11/22/21 06:08 Seg Neutrophils % 45.8 % (40.0-70.0) 11/22/21 06:08 Seg Neutrophils # 2.0 K/mm3 (1.8-7.7) 11/22/21 06:08 PT 17.0 Sec. (12.2-14.9) H 11/20/21 23:52 INR 1.23 (0.87-1.13) H 11/20/21 23:52 Sodium 132 mmol/L (137-145) L 11/22/21 06:08 Potassium 6.2 mmol/L (3.6-5.0) H* 11/22/21 06:08 Chloride 102.0 mmol/L (98-107) 11/22/21 06:08 Carbon Dioxide 12 mmol/L (22-30) L 11/22/21 06:08 Anion Gap 24 mmol/L 11/22/21 06:08 BUN 68 mg/dL (7-17) H 11/22/21 06:08 Creatinine 9.3 mg/dL (0.6-1.2) H 11/22/21 06:08 Estimated GFR 5 ml/min 11/22/21 06:08 BUN/Creatinine Ratio 7 % 11/22/21 06:08 Glucose 86 mg/dL (65-100) 11/22/21 06:08 Calcium 6.1 mg/dL (8.4-10.2) L 11/22/21 06:08 Total Bilirubin 0.40 mg/dL (0.1-1.2) 11/20/21 23:52 AST 252 units/L (5-40) H 11/20/21 23:52 ALT 142 units/L (7-56) H 11/20/21 23:52 Alkaline Phosphatase 111 units/L (35-129) 11/20/21 23:52 Total Creatine Kinase 79 units/L (30-135) 11/20/21 23:52 Total Protein 8.7 g/dL (6.3-8.2) H 11/20/21 23:52 Albumin 3.5 g/dL (3.9-5) L 11/20/21 23:52 Albumin/Globulin Ratio 0.7 % 11/20/21 23:52 Active Medications - Current Medications Current Medications: Generic Name Dose Route Start Last Admin Trade Name Freq PRN Reason Stop Dose Admin Acetaminophen 650 mg 11/21/21 05:04 Acetaminophen 325 Mg Tab PO Q4H PRN Pain MILD(1-3)/Fever >100.5/DAVIS Albuterol 2.5 mg 11/21/21 05:04 Albuterol 2.5 Mg/3 Ml Nebu IH Q3HRT PRN Shortness Of Breath Calcitriol 0.5 mcg 11/22/21 10:00 Calcitriol 0.5 Mcg Cap PO QDAY JIMMY Calcium Acetate 1,334 mg 11/22/21 14:00 Calcium Acetate 667 Mg Cap PO TID JIMMY Famotidine 10 mg 11/21/21 10:00 11/21/21 22:49 Famotidine 10 Mg Tab PO 10 mg BID JIMMY Administration Heparin Sodium (Porcine) 5,000 unit 11/21/21 10:00 11/21/21 22:49 Heparin 5,000 Unit/1 Ml Vial SUB-Q 5,000 unit Q12HR JIMMY Administration Hydralazine HCl 10 mg 11/21/21 05:15 11/21/21 05:00 Hydralazine 20 Mg/1 Ml Inj IV 10 mg Q6H PRN Administration Hypertension Hydralazine HCl 50 mg 11/21/21 14:00 11/22/21 05:47 Hydralazine 25 Mg Tab PO 50 mg Q8HR JIMMY Administration Acyclovir 320 mg/ Sodium 106.4 mls @ 100 mls/hr 11/21/21 18:00 11/21/21 18:44 Chloride IV 100 mls/hr Q24H JIMMY Administration Protocol Calcium Gluconate 1,000 mg/ 110 mls @ 660 mls/hr 11/22/21 10:01 Sodium Chloride IV 11/22/21 10:10 ONCE ONE Metoprolol Tartrate 100 mg 11/21/21 10:00 11/21/21 10:35 Metoprolol Tartrate 100 Mg Tab PO 100 mg QDAY JIMMY Administration Morphine Sulfate 2 mg 11/21/21 05:04 Morphine 2 Mg/1 Ml Inj IV Q4H PRN Pain, Moderate (4-6) Ondansetron HCl 4 mg 11/21/21 05:04 Ondansetron 4 Mg/2 Ml Inj IV Q8H PRN Nausea And Vomiting Oxycodone/Acetaminophen 1 tab 11/21/21 16:22 Oxycodone /Acetaminophen 5-325mg Tab PO Q6H PRN Pain, Moderate (4-6) Pneumococcal Polyvalent Vaccine 0.5 ml 11/22/21 12:00 Pneumococcal 23 Valent 0.5 Ml Vial IM 11/22/21 12:01 .ONCE ONE Sodium Bicarbonate 1,950 mg 11/22/21 08:00 Sodium Bicarbonate 650 Mg Tab PO TID JIMMY Sodium Chloride 10 ml 11/21/21 10:00 11/21/21 22:49 Sodium Chloride 0.9% 10 Ml Flush Syringe IV 10 ml BID JIMMY Administration Sodium Chloride 10 ml 11/21/21 05:04 Sodium Chloride 0.9% 10 Ml Flush Syringe IV PRN PRN LINE FLUSH Sodium Polystyrene Sulfonate 30 gm 11/22/21 09:30 Sodium Polystyrene 15 Gm/60 Ml Oral Liqd PO 11/22/21 12:30 ONCE NR
[2021-11-22] MEDS ORDERED: CALCIUM GLUCONATE 1,000 MG in SODIUM CHLORIDE 0.9% 100 ML IV ONE (10:30)
[2021-11-22] MEDS ORDERED: PNEUMOCOCCAL 23 Valent 0.5 ML VIAL IM ONE (12:00)
[2021-11-22] MEDS: SODIUM BICARBONATE 650 MG TAB PO SCH ×3 (12:13→21:15)
[2021-11-22] MEDS: METOPROLOL TARTRATE 100 MG TAB PO SCH (12:13)
[2021-11-22] MEDS: FAMOTIDINE 10 MG TAB PO SCH ×2 (12:13→21:16)
[2021-11-22] MEDS: CALCITRIOL 0.5 MCG CAP PO SCH (12:13)
[2021-11-22] MEDS: HEPARIN 5,000 UNIT/1 ML VIAL SUB-Q SCH ×2 (12:14→21:16)
[2021-11-22] MEDS: CALCIUM ACETATE 667 MG CAP PO SCH ×2 (18:43→21:15)
[2021-11-22] MEDS: ACYCLOVIR IV SCH (18:55)
[2021-11-22] MEDS: SODIUM CHLORIDE 0.9% IV SCH (18:55)
--- NOTE | 2021-11-22 23:24 | Consultation ---
History of Present Illness - Reason for Consult Consult date: 11/22/21 - History of Present Illness 61-year-old female past medical history CKD not on HD, hypertension, lupus, PAD, bilateral lower extremity amputations presented to hospital complaining of left supraorbital rash and pain. She denies any loss of vision. She is unsure if she has had varicella in the past Afebrile with T-max 100, tachycardic. White count 3.4. No cultures for review. Currently on acyclovir Imaging personally reviewed: Chest x-ray: No pneumonia Review of Systems: Bold if positive, otherwise negative General: fevers, chills, rigors HEENT: visual disturbance, diplopia, eye pain Respiratory: cough, sputum, hemoptysis, shortness of breath Cardiovascular: chest pain, syncope Gastrointestinal: nausea, vomiting, diarrhea, abdominal pain Genitourinary: dysuria, hematuria, flank pain Musculoskeletal: neck pain, back pain, joint pain, edema Neurologic: headaches, seizures Hematologic: easy bruising or bleeding Endocrine: night sweats, acute weight loss Skin: rash, jaundice, redness Psychiatric: suicidal, homicidal ideation Past History Past Medical History: renal failure, stroke, other (Lupus, PAD) Past Surgical History: Other (Bilateral lower extremity amputation) Social history: denies: smoking Family history: hypertension Medications and Allergies Allergies Allergy/AdvReac Type Severity Reaction Status Date / Time No Known Allergies Allergy Verified 11/20/21 23:57 Home Medications Medication Instructions Recorded Confirmed Last Taken Type Metoprolol 100 mg PO DAILY 11/21/21 11/21/21 11/20/21 History Active Meds: Active Medications Acetaminophen (Acetaminophen 325 Mg Tab) 650 mg PO Q4H PRN PRN Reason: Pain MILD(1-3)/Fever >100.5/DAVIS Albuterol (Albuterol 2.5 Mg/3 Ml Nebu) 2.5 mg IH Q3HRT PRN PRN Reason: Shortness Of Breath Calcitriol (Calcitriol 0.5 Mcg Cap) 0.5 mcg PO QDAY [facility] Last Admin: 11/22/21 12:13 Dose: 0.5 mcg Calcium Acetate (Calcium Acetate 667 Mg Cap) 1,334 mg PO TID [facility] Last Admin: 11/22/21 21:15 Dose: 1,334 mg Famotidine (Famotidine 10 Mg Tab) 10 mg PO BID [facility] Last Admin: 11/22/21 21:16 Dose: 10 mg Heparin Sodium (Porcine) (Heparin 5,000 Unit/1 Ml Vial) 5,000 unit SUB-Q Q12HR [facility] Last Admin: 11/22/21 21:16 Dose: 5,000 unit Hydralazine HCl (Hydralazine 20 Mg/1 Ml Inj) 10 mg IV Q6H PRN PRN Reason: Hypertension Last Admin: 11/21/21 05:00 Dose: 10 mg Hydralazine HCl (Hydralazine 25 Mg Tab) 50 mg PO Q8HR [facility] Last Admin: 11/22/21 21:16 Dose: 50 mg Acyclovir 320 mg/ Sodium (Chloride) 106.4 mls @ 100 mls/hr IV Q24H [facility]; Protocol Last Admin: 11/22/21 18:55 Dose: 100 mls/hr Metoprolol Tartrate (Metoprolol Tartrate 100 Mg Tab) 100 mg PO QDAY [facility] Last Admin: 11/22/21 12:13 Dose: 100 mg Morphine Sulfate (Morphine 2 Mg/1 Ml Inj) 2 mg IV Q4H PRN PRN Reason: Pain, Moderate (4-6) Ondansetron HCl (Ondansetron 4 Mg/2 Ml Inj) 4 mg IV Q8H PRN PRN Reason: Nausea And Vomiting Oxycodone/Acetaminophen (Oxycodone /Acetaminophen 5-325mg Tab) 1 tab PO Q6H PRN PRN Reason: Pain, Moderate (4-6) Sodium Bicarbonate (Sodium Bicarbonate 650 Mg Tab) 1,950 mg PO TID [facility] Last Admin: 11/22/21 21:15 Dose: 1,950 mg Sodium Chloride (Sodium Chloride 0.9% 10 Ml Flush Syringe) 10 ml IV BID [facility] Last Admin: 11/22/21 21:16 Dose: 10 ml Sodium Chloride (Sodium Chloride 0.9% 10 Ml Flush Syringe) 10 ml IV PRN PRN PRN Reason: LINE FLUSH Physical Examination - Physical Exam Narrative exam: Physical Exam: Constitutional: Alert, cooperative. No acute distress Head, Ears, Nose: Normocephalic, atraumatic. External ears, nose normal Eyes: Conjunctivae/corneas clear. No icterus. No ptosis. Neck: Supple, no meningeal signs Oral: dentition fair, no thrush Cardiovascular: S1, S2 normal. Respiratory: Good air entry, clear to auscultation bilaterally GI: Soft, non-tender; bowel sounds normal. No peritoneal signs. Musculoskeletal: No pedal edema, no cyanosis. Skin: Left-sided facial shingles. Negative Archer sign Hem/Lymphatic: No palpable cervical or supraclavicular nodes. No lymphangitis Psych: Mood ok. Affect normal Neurological: Awake, alert, oriented. No gross abnormality - Constitutional Vitals: Vital Signs Temp Pulse Resp BP Pulse Ox 98.2 F 98 H 18 180/133 99 11/22/21 20:19 11/22/21 20:19 11/22/21 20:19 11/22/21 20:19 11/22/21 20:19 Temperature -Last 24 Hours Temperature 98.2 F Temperature 98 F Temperature 98.7 F Temperature 100.0 F Results - Labs CBC & Chem 7: 11/22/21 06:08 11/22/21 06:08 Labs: Abnormal lab results 11/22/21 11/22/21 Range/Units 06:08 06:08 WBC 4.3 L (4.5-11.0) K/mm3 RDW 15.7 H (13.2-15.2) % Lymph % (Auto) 40.9 H (13.4-35.0) % [place] % (Auto) 10.8 H (0.0-7.3) % Sodium 132 L (137-145) mmol/L Potassium 6.2 H* (3.6-5.0) mmol/L Carbon Dioxide 12 L (22-30) mmol/L BUN 68 H (7-17) mg/dL Creatinine 9.3 H (0.6-1.2) mg/dL Calcium 6.1 L (8.4-10.2) mg/dL Assessment and Plan Cultures: None A/P: 61-year-old female past medical history CKD not on HD, hypertension, lupus, PAD, bilateral lower extremity amputations #Facial shingles: Appears to be in V1 of the trigeminal nerve. This is a sensory nerve, not usually associated with retinal necrosis. #MARCUS on CKD: Renally dose medications. Unfortunately she needs acyclovir due to the above. Recs: -Continue acyclovir 5 mg/kg every 24 hours renally dosed -Once all lesions crusted over, can convert to p.o. Valtrex for discharge -Once resolved from acute infection, would recommend outpatient shingles vaccine Thank you for the consult, we will continue to follow. Javid Pablo MD [facility] O: [phone] F: [phone]
[2021-11-22] MEDS: hydrALAZINE 20 MG/1 ML INJ IV PRN (23:59)
[2021-11-23] MEDS ORDERED: ZIPRASIDONE MESYLATE 20 MG VIAL IM ONE (02:53)
[2021-11-23] MEDS: hydrALAZINE 25 MG TAB PO SCH ×3 (05:14→15:00)
--- NOTE | 2021-11-23 08:44 | Progress Note ---
Assessment and Plan Assessment and plan: 61-year-old female patient with history of chronic kidney disease follows with Dr. Valdez not on dialysis lupus, hypertension ,peripheral artery disease status post bilateral amputation presented to the emergency room with the complaints of left supraorbital and forehead rash/shingles for the last 4-5 days.Patient is unable to give the details. She reports that she discussed with her primary care physician . And he gave some treatment instructions --Hyperkalemia; IV calcium gluconate, Kayexalate Nephrology following -Herpes zoster/shingles[left upper supraorbital area and forehead] Pain medications, local care Continue acyclovir, contact isolation Follow pending ID evaluation and recommendations Wound care if needed, without superimposed bacterial infection No visual defect, patient is able to count the fingers and read big print Patient needs ophthalmology evaluation upon discharge[no services available] Follow ID evaluation recommendations --Chronic renal insufficiency, stage V Not on dialysis closely , follows with Dr. 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 Stable Continue supportive care --History of of lupus Continue supportive care Immunocompromised -- History of PAD (peripheral artery disease) Bilateral LE amputations Supportive care, --Bilateral lower extremity amputations; Due to peripheral arterial disease --History of hypertensive urgency; present on admission Resume all home antihypertensives and as needed medications Closely monitor blood pressures --Metabolic acidosis Due to chronic kidney disease stage V Continue IV fluids, nephrology following --Full CODE STATUS -DVT prophylaxis Subcu Heparin 5000 units every 12 hours GI prophylaxis oral Pepcid We will closely monitor the patient and adjust management as needed follow consults evaluation and recommendations Plan of care reviewed with the patient and her nurse Try to contact family for more medical information Advance care planning; +30 minutes Patient's condition discussed with the patient, diagnosis discussed, tests and reports discussed Treatment plan discussed, patient had questions, answered all of them Try to contact family and get more medical information. 11/23/2019; patient is on IV acyclovir, nephrology evaluated Medications of renally dosed, gentle opening of the left eye Patient found for fevers, and read the big print. 11/23; patient confused intermittently Severe dysarthria sometimes unable to understand Consultants and recommendations noted and appreciated History Interval history: I have seen and examined the patient at the bedside Patient's chart and medications reviewed No new overnight events reported by nursing Patient feels slightly better however little confused Afebrile,, vital signs noted Hospitalist Physical - Constitutional Vitals: Temp Pulse Resp BP Pulse Ox 98.8 F 117 H 20 168/101 95 11/22/21 23:57 11/23/21 04:15 11/23/21 03:46 11/23/21 04:15 11/23/21 03:46 General appearance: Present: mild distress, well-nourished, other (Shingles rash on the left supraorbital/forehead area, upper aspect ) - EENT Eyes: Present: PERRL, EOM intact - Neck Neck: Present: supple, normal ROM - Respiratory Respiratory effort: normal Respiratory: bilateral: diminished, negative: rales, rhonchi, wheezing - Cardiovascular Rhythm: regular Heart Sounds: Present: S1 & S2 - Extremities Extremities: no ischemia, No edema - Abdominal General gastrointestinal: soft, non-tender, non-distended, normal bowel sounds - Integumentary Integumentary: Present: clear, warm - Psychiatric Psychiatric: appropriate mood/affect, agitated - Neurologic Neurologic: moves all extremities Results - Labs CBC & Chem 7: 11/23/21 09:09 11/23/21 09:09 Labs: Laboratory Last Values WBC 4.3 K/mm3 (4.5-11.0) L 11/22/21 06:08 RBC 3.97 M/mm3 (3.65-5.03) 11/22/21 06:08 Hgb 11.1 gm/dl (10.1-14.3) 11/22/21 06:08 Hct 34.3 % (30.3-42.9) 11/22/21 06:08 MCV 86 fl (79-97) 11/22/21 06:08 MCH 28 pg (28-32) 11/22/21 06:08 MCHC 33 % (30-34) 11/22/21 06:08 RDW 15.7 % (13.2-15.2) H 11/22/21 06:08 Plt Count 186 K/mm3 (140-440) 11/22/21 06:08 Lymph % (Auto) 40.9 % (13.4-35.0) H 11/22/21 06:08 Bandera % (Auto) 10.8 % (0.0-7.3) H 11/22/21 06:08 Eos % (Auto) 1.9 % (0.0-4.3) 11/22/21 06:08 Baso % (Auto) 0.6 % (0.0-1.8) 11/22/21 06:08 Lymph # (Auto) 1.8 K/mm3 (1.2-5.4) 11/22/21 06:08 Bandera # (Auto) 0.5 K/mm3 (0.0-0.8) 11/22/21 06:08 Eos # (Auto) 0.1 K/mm3 (0.0-0.4) 11/22/21 06:08 Baso # (Auto) 0.0 K/mm3 (0.0-0.1) 11/22/21 06:08 Seg Neutrophils % 45.8 % (40.0-70.0) 11/22/21 06:08 Seg Neutrophils # 2.0 K/mm3 (1.8-7.7) 11/22/21 06:08 PT 17.0 Sec. (12.2-14.9) H 11/20/21 23:52 INR 1.23 (0.87-1.13) H 11/20/21 23:52 Sodium 132 mmol/L (137-145) L 11/22/21 06:08 Potassium 6.2 mmol/L (3.6-5.0) H* 11/22/21 06:08 Chloride 102.0 mmol/L (98-107) 11/22/21 06:08 Carbon Dioxide 12 mmol/L (22-30) L 11/22/21 06:08 Anion Gap 24 mmol/L 11/22/21 06:08 BUN 68 mg/dL (7-17) H 11/22/21 06:08 Creatinine 9.3 mg/dL (0.6-1.2) H 11/22/21 06:08 Estimated GFR 5 ml/min 11/22/21 06:08 BUN/Creatinine Ratio 7 % 11/22/21 06:08 Glucose 86 mg/dL (65-100) 11/22/21 06:08 Calcium 6.1 mg/dL (8.4-10.2) L 11/22/21 06:08 Total Bilirubin 0.40 mg/dL (0.1-1.2) 11/20/21 23:52 AST 252 units/L (5-40) H 11/20/21 23:52 ALT 142 units/L (7-56) H 11/20/21 23:52 Alkaline Phosphatase 111 units/L (35-129) 11/20/21 23:52 Total Creatine Kinase 79 units/L (30-135) 11/20/21 23:52 Total Protein 8.7 g/dL (6.3-8.2) H 11/20/21 23:52 Albumin 3.5 g/dL (3.9-5) L 11/20/21 23:52 Albumin/Globulin Ratio 0.7 % 11/20/21 23:52 Active Medications - Current Medications Current Medications: Generic Name Dose Route Start Last Admin Trade Name Freq PRN Reason Stop Dose Admin Acetaminophen 650 mg 11/21/21 05:04 Acetaminophen 325 Mg Tab PO Q4H PRN Pain MILD(1-3)/Fever >100.5/DAVIS Albuterol 2.5 mg 11/21/21 05:04 Albuterol 2.5 Mg/3 Ml Nebu IH Q3HRT PRN Shortness Of Breath Calcitriol 0.5 mcg 11/22/21 11:00 11/22/21 12:13 Calcitriol 0.5 Mcg Cap PO 0.5 mcg QDAY JIMMY Administration Calcium Acetate 1,334 mg 11/22/21 14:00 11/22/21 21:15 Calcium Acetate 667 Mg Cap PO 1,334 mg TID JIMMY Administration Famotidine 10 mg 11/21/21 10:00 11/22/21 21:16 Famotidine 10 Mg Tab PO 10 mg BID JIMMY Administration Heparin Sodium (Porcine) 5,000 unit 11/21/21 10:00 11/22/21 21:16 Heparin 5,000 Unit/1 Ml Vial SUB-Q 5,000 unit Q12HR JIMMY Administration Hydralazine HCl 50 mg 11/21/21 14:00 11/23/21 05:14 Hydralazine 25 Mg Tab PO Not Given Q8HR JIMMY Acyclovir 320 mg/ Sodium 106.4 mls @ 100 mls/hr 11/21/21 18:00 11/22/21 18:55 Chloride IV 100 mls/hr Q24H JIMMY Administration Protocol Labetalol HCl 20 mg 11/23/21 00:38 11/23/21 03:11 Labetalol 20 Mg/4 Ml Inj IV 20 mg Q6HR PRN Administration SBP>170 Metoprolol Tartrate 100 mg 11/21/21 10:00 11/22/21 12:13 Metoprolol Tartrate 100 Mg Tab PO 100 mg QDAY JIMMY Administration Morphine Sulfate 2 mg 11/21/21 05:04 Morphine 2 Mg/1 Ml Inj IV Q4H PRN Pain, Moderate (4-6) Ondansetron HCl 4 mg 11/21/21 05:04 Ondansetron 4 Mg/2 Ml Inj IV Q8H PRN Nausea And Vomiting Oxycodone/Acetaminophen 1 tab 11/21/21 16:22 Oxycodone /Acetaminophen 5-325mg Tab PO Q6H PRN Pain, Moderate (4-6) Sodium Bicarbonate 1,950 mg 11/22/21 08:00 11/22/21 21:15 Sodium Bicarbonate 650 Mg Tab PO 1,950 mg TID JIMMY Administration Sodium Chloride 10 ml 11/21/21 10:00 11/22/21 21:16 Sodium Chloride 0.9% 10 Ml Flush Syringe IV 10 ml BID JIMMY Administration Sodium Chloride 10 ml 11/21/21 05:04 Sodium Chloride 0.9% 10 Ml Flush Syringe IV PRN PRN LINE FLUSH Nutrition/Malnutrition Assess - Dietary Evaluation Nutrition/Malnutrition Findings: Nutrition Notes Start: 11/22/21 11:4 2 Freq: Status: Active Protocol: Document 11/22/21 11:42 AURY (Rec: 11/22/21 12:03 AURY [email or web address]) Nutrition Notes Need for Assessment generated from: management and budget analyst Initial or Follow up Assessment Current Diagnosis CKD (stage V CKD),Hypertension ,Stroke Other Pertinent Diagnosis Hyperkalemia, Lupus, Zoster, PAD, s/p Bilateral-[place], Metabolic Acidosis, .. Current Diet Cardiac -Renal- Diet (since B 11/21). Labs/Tests 11/22: Na 132, K 6.2, CO2 12, BUN 68, Crea 9.3, Ca 6.1. Pertinent Medications 11/22: Phoslo, Kionex, others nutritionally unremarkable. 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 Weight Status Overweight Subjective/Other Information RD consult for skin risk assessment. No reports available on Pt's PO intake of meals at the time , will assess at F/U. Pt is on Room Air, O2 saturation @ 98%, according to Physical Assessment History notes. Pt has missing teeth, according to Physical Assessment History notes. Pt presents multiple blisters on the L-supraorbital area and the forhead as signs of concern for skin risk at this time, according to Physical Assessment History notes. Pt has a CKD stage V, but refuses HD, according to Progress notes. I will prescribe Renal modification to Pt's current Diet to support Pt's CKD-V condition. Percent of energy/protein needs met: Prescribed Cardiac -Renal- Diet provides for energy/ protein needs (2,230 Kcal/85 g ) during LOS. Burn Absent Trauma Absent GI Symptoms None Food Allergy No Skin Integrity/Comment L-supraorbital & forhead Blisters. Minimum of two criteria No Fluid Accumulation N/A Reduced Coal Passer Strength N/A (non-severe) Protein-Calorie Malnutrition N\A #1 Nutrition Diagnosis Altered nutrition-related laboratory values Etiology CKD-V. As Evidenced by Signs and Symptoms 11/22: Na 132, K 6.2, BUN 68, Crea 9.3, Ca 6.1. Is patient on ventilator? No Is Patient Ambulatory and/or Out of Bed No REE-([facility]-confined to bed) [phone] Calculation Used for Recommendations [facility] Additional Notes Protein: 0.6-0.8 g/Kg ABW; 45- 60 g/day. Fluids: 1 ml/Kcal, or as per MD. Nutrition Intervention Change Diet Order: Modify Cardiac Diet with Renal restriction. Goal #1 Adjust the dietary intervention to better serve Pt's needs and clinical conditions during LOS. Follow-Up By: 11/29/21 Additional Comments Continue monitoring food tolerance, %PO intake of meals , and BM.
[2021-11-23] MEDS: CALCIUM ACETATE 667 MG CAP PO SCH ×4 (09:07→22:38)
[2021-11-23] MEDS: METOPROLOL TARTRATE 100 MG TAB PO SCH (09:08)
[2021-11-23] MEDS: FAMOTIDINE 10 MG TAB PO SCH ×2 (09:08→22:39)
[2021-11-23] MEDS: CALCITRIOL 0.5 MCG CAP PO SCH (09:08)
[2021-11-23] MEDS: SODIUM BICARBONATE 650 MG TAB PO SCH ×4 (09:18→22:38)
[2021-11-23] MEDS: HEPARIN 5,000 UNIT/1 ML VIAL SUB-Q SCH ×2 (09:18→22:39)
--- NOTE | 2021-11-23 09:33 | Progress Note ---
Assessment and Plan Impression: * Stage V CKD --SCr 4.8mg/dL in Apr 2021 * Herpes zoster * Hyperkalemia * Metabolic acidosis * Secondary Hyperparathyroidism * Azotemia * Transaminitis * Hypertension Plan: * Patient with progression of chronic kidney disease. Patient well known to myself for CKD, has been refusing dialysis in generally but has stated "would do it" if needed. * Confused today- may be uremic effects * Spoke with son at length- agree to avoid dialysis if able per mother's wishes but in emergent setting or lack of improvement in mentation, will move forward with dialysis * Electrolytes reasonable today * Continue Na bicarbonate * Kayexlyate for hyperkalemia prn * continue home calcitriol, calcium acetate * Antiviral per primary team, ID * Dose medications for renal function * Avoid potential nephrotoxins * AM labs Subjective Date of service: 11/23/21 Interval history: Noted to be agitated overnight, given Geodyn. Remains confused this AM and in afternoon. Family at bedside in afternoon Objective - Exam Narrative Exam: General appearance: confused EENT: other (vesicular rash involving left eye, forehead, lutheran; crusting lesions) Respiratory: Clear to Ascultation Heart: regular, S1S2 Gastrointestinal: Present: normal Integumentary: warm and dry Musculoskeletal: Present: other (bilateral LE amputation) - Vital Signs Vital signs: Vital Signs - 12hr 11/22/21 11/23/21 11/23/21 23:57 00:37 01:58 Temperature 98.8 F Pulse Rate 114 H 113 H 112 H Respiratory 16 Rate Blood Pressure Blood Pressure 232/138 210/113 [Right] O2 Sat by Pulse 97 Oximetry 11/23/21 11/23/21 11/23/21 02:00 02:07 03:46 Temperature Pulse Rate 125 H Respiratory 18 20 Rate Blood Pressure Blood Pressure 183/145 198/122 [Right] O2 Sat by Pulse 95 95 Oximetry 11/23/21 11/23/21 04:15 09:08 Temperature Pulse Rate 117 H Respiratory Rate Blood Pressure 199/108 Blood Pressure 168/101 [Right] O2 Sat by Pulse Oximetry - Lab 11/23/21 09:09 11/23/21 09:09 Most recent lab results Calcium 6.1 mg/dL (8.4-10.2) L 11/22/21 06:08 Medications & Allergies - Medications Allergies/Adverse Reactions: Allergies No Known Allergies Allergy (Verified 11/20/21 23:57) Home Medications: Home Medications Medication Instructions Recorded Confirmed Last Taken Type Metoprolol 100 mg PO DAILY 11/21/21 11/21/21 11/20/21 History Active Medications: Generic Name Dose Route Start Last Admin Trade Name Freq PRN Reason Stop Dose Admin Acetaminophen 650 mg 11/21/21 05:04 Acetaminophen 325 Mg Tab PO Q4H PRN Pain MILD(1-3)/Fever >100.5/DAVIS Albuterol 2.5 mg 11/21/21 05:04 Albuterol 2.5 Mg/3 Ml Nebu IH Q3HRT PRN Shortness Of Breath Calcitriol 0.5 mcg 11/22/21 11:00 11/23/21 09:08 Calcitriol 0.5 Mcg Cap PO 0.5 mcg QDAY JIMMY Administration Calcium Acetate 1,334 mg 11/22/21 14:00 11/23/21 09:07 Calcium Acetate 667 Mg Cap PO 1,334 mg TID JIMMY Administration Famotidine 10 mg 11/21/21 10:00 11/23/21 09:08 Famotidine 10 Mg Tab PO 10 mg BID JIMMY Administration Heparin Sodium (Porcine) 5,000 unit 11/21/21 10:00 11/23/21 09:18 Heparin 5,000 Unit/1 Ml Vial SUB-Q 5,000 unit Q12HR JIMMY Administration Hydralazine HCl 50 mg 11/21/21 14:00 11/23/21 05:14 Hydralazine 25 Mg Tab PO Not Given Q8HR JIMMY Acyclovir 320 mg/ Sodium 106.4 mls @ 100 mls/hr 11/21/21 18:00 11/22/21 18:55 Chloride IV 100 mls/hr Q24H JIMMY Administration Protocol Labetalol HCl 20 mg 11/23/21 00:38 11/23/21 03:11 Labetalol 20 Mg/4 Ml Inj IV 20 mg Q6HR PRN Administration SBP>170 Metoprolol Tartrate 100 mg 11/21/21 10:00 11/23/21 09:08 Metoprolol Tartrate 100 Mg Tab PO 100 mg QDAY JIMMY Administration Morphine Sulfate 2 mg 11/21/21 05:04 Morphine 2 Mg/1 Ml Inj IV Q4H PRN Pain, Moderate (4-6) Ondansetron HCl 4 mg 11/21/21 05:04 Ondansetron 4 Mg/2 Ml Inj IV Q8H PRN Nausea And Vomiting Oxycodone/Acetaminophen 1 tab 11/21/21 16:22 Oxycodone /Acetaminophen 5-325mg Tab PO Q6H PRN Pain, Moderate (4-6) Sodium Bicarbonate 1,950 mg 11/22/21 08:00 11/23/21 09:18 Sodium Bicarbonate 650 Mg Tab PO 1,950 mg TID JIMMY Administration Sodium Chloride 10 ml 11/21/21 10:00 11/23/21 09:10 Sodium Chloride 0.9% 10 Ml Flush Syringe IV 10 ml BID JIMMY Administration Sodium Chloride 10 ml 11/21/21 05:04 Sodium Chloride 0.9% 10 Ml Flush Syringe IV PRN PRN LINE FLUSH
[2021-11-23 10:02] LABS: Basophils % (Auto) 0.5 % (0.0-1.8); Eosinophils % (Auto) 0.2 % (0.0-4.3); Hematocrit 31.1 % (30.3-42.9); Hemoglobin 9.9 gm/dl (10.1-14.3); Lymphocytes # (Auto) 1.2 K/mm3 (1.2-5.4); Lymphocytes % (Auto) 24.3 % (13.4-35.0); Mean Corpuscular HGB Conc 32 % (30-34); Mean Corpuscular Volume 86 fl (79-97); Monocytes # (Auto) 0.5 K/mm3 (0.0-0.8); Platelet Count 185 K/mm3 (140-440); Red Blood Count 3.62 M/mm3 (3.65-5.03); Red Cell Distribution Width 15.6 % (13.2-15.2)
[2021-11-23 10:04] LABS: Albumin 3.1 g/dL (3.9-5); Calcium 6.5 mg/dL (8.4-10.2)
--- NOTE | 2021-11-23 11:21 | Progress Note ---
Assessment and Plan Cultures: None A/P: 61-year-old female past medical history CKD not on HD, hypertension, lupus, PAD, bilateral lower extremity amputations #Facial shingles: Appears to be in V1 of the trigeminal nerve. This is a sensory nerve, not usually associated with retinal necrosis. #MARCUS on CKD: Renally dose medications. Unfortunately she needs acyclovir due to the above. Recs: -Continue acyclovir 5 mg/kg every 24 hours renally dosed -Once all lesions crusted over, can convert to p.o. Valtrex for discharge -Once resolved from acute infection, would recommend outpatient shingles vaccine -Outpatient ophthalmology evaluation Thank you for the consult, we will continue to follow. Javid Pablo MD [facility] ([facility]) O: [phone] F: [phone] Subjective Date of service: 11/23/21 Interval history: Afebrile, normal white count now. Objective - Exam Narrative Exam: Physical Exam: Constitutional: Alert, cooperative. No acute distress Head, Ears, Nose: Normocephalic, atraumatic. External ears, nose normal Eyes: Conjunctivae/corneas clear. No icterus. No ptosis. Neck: Supple, no meningeal signs Oral: dentition fair, no thrush Cardiovascular: S1, S2 normal. Respiratory: Good air entry, clear to auscultation bilaterally GI: Soft, non-tender; bowel sounds normal. No peritoneal signs. Musculoskeletal: No pedal edema, no cyanosis. Skin: Left-sided facial shingles. Negative Archer sign Hem/Lymphatic: No palpable cervical or supraclavicular nodes. No lymphangitis Psych: Mood ok. Affect normal Neurological: Awake, alert, oriented. No gross abnormality - Constitutional Vitals: Vital Signs Temp Pulse Resp BP Pulse Ox 98.8 F 117 H 20 199/108 95 11/22/21 23:57 11/23/21 04:15 11/23/21 03:46 11/23/21 09:08 11/23/21 03:46 Temperature -Last 24 Hours Temperature 98.8 F Temperature 98.2 F - Labs CBC & Chem 7: 11/23/21 09:09 11/23/21 09:09 Labs: Abnormal lab results 11/23/21 11/23/21 Range/Units 09:09 09:09 RBC 3.62 L (3.65-5.03) M/mm3 Hgb 9.9 L (10.1-14.3) gm/dl MCH 27 L (28-32) pg RDW 15.6 H (13.2-15.2) % [place] % (Auto) 10.0 H (0.0-7.3) % Sodium 136 L (137-145) mmol/L Carbon Dioxide 15 L (22-30) mmol/L BUN 70 H (7-17) mg/dL Creatinine 9.5 H (0.6-1.2) mg/dL Glucose 111 H (65-100) mg/dL Calcium 6.5 L (8.4-10.2) mg/dL AST 277 H (5-40) units/L ALT 334 H (7-56) units/L Albumin 3.1 L (3.9-5) g/dL
--- NOTE | 2021-11-23 14:45 | Cat Scan Report ---
CT head/brain wo con INDICATION: AMS/h/o recurrent strokes/herpes zoster face. TECHNIQUE: Routine CT head. All CT scans at this location are performed using CT dose reduction for A LUISANA by means of automated exposure control. COMPARISON: None. FINDINGS: Intracranial: Multifocal encephalomalacia in the left frontal, parietal, occipital, left central carlee and right mojica radiata from remote infarctions. Anterior and posterior arterial atherosclerotic ca lcifications. No evidence of acute territorial infarction.. No intracranial hemorrhage. No extra axia l collection. No hydrocephalus. No herniation. Sinuses: Paranasal sinuses and mastoid air cells are essentially clear. Orbits: Globes are intact. Calvarium: No acute fracture. IMPRESSION: 1. No acute intracranial abnormality. 2. Multifocal remote infarctions. Signer Name: Virgil Houston MD Signed: 11/23/2021 2:40 PM Workstation Name: [id number]
--- NOTE | 2021-11-23 15:10 | Progress Note ---
History Interval history: 61-year-old female patient with history of chronic kidney disease follows with Dr. Valdez not on dialysis lupus, hypertension ,peripheral artery disease status post bilateral amputation presented to the emergency room with the complaints of left supraorbital and forehead rash/shingles for the last 4-5 days.Patient is un able to give the details. She reports that she discussed with her primary care physician . And he gave some treatment instructions --Hyperkalemia; IV calcium gluconate, Kayexalate Nephrology following -Herpes zoster/shingles[left upper supraorbital area and forehead] Pain medications, local care Continue acyclovir, contact isolation Follow pending ID evaluation and recommendations Wound care if needed, without superimposed bacterial infection No visual defect, patient is able to count the fingers and read big print Patient needs ophthalmology evaluation upon discharge[no services available] Follow ID evaluation recommendations --Chronic renal insufficiency, stage V Not on dialysis closely , follows with Dr. 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 Stable Continue supportive care --History of of lupus Continue supportive care Immunocompromised -- History of PAD (peripheral artery disease) Bilateral LE amputations Supportive care, --Bilateral lower extremity amputations; Due to peripheral arterial disease --History of hypertensive urgency; present on admission Resume all home antihypertensives and as needed medications Closely monitor blood pressures --Metabolic acidosis Due to chronic kidney disease stage V Continue IV fluids, nephrology following --Full CODE STATUS -DVT prophylaxis Subcu Heparin 5000 units every 12 hours GI prophylaxis oral Pepcid We will closely monitor the patient and adjust management as needed follow consults evaluation and recommendations Plan of care reviewed with the patient and her nurse Try to contact family for more medical information Advance care planning; +30 minutes Patient's condition discussed with the patient, diagnosis discussed, tests and reports discussed Treatment plan discussed, patient had questions, answered all of them Try to contact family and get more medical information. 11/23/2019; patient is on IV acyclovir, nephrology evaluated Medications of renally dosed, gentle opening of the left eye Patient found for fevers, and read the big print. Hospitalist Physical - Constitutional Vitals: Temp Pulse Resp BP Pulse Ox 97.9 F 131 H 22 184/102 96 11/23/21 11:55 11/23/21 11:55 11/23/21 10:00 11/23/21 11:55 11/23/21 11:55 General appearance: Present: mild distress, well-nourished, other (Shingles rash on the left supraorbital/forehead area, upper aspect ) Results - Labs CBC & Chem 7: 11/23/21 09:09 11/23/21 09:09 Labs: Laboratory Last Values WBC 4.9 K/mm3 (4.5-11.0) 11/23/21 09:09 RBC 3.62 M/mm3 (3.65-5.03) L 11/23/21 09:09 Hgb 9.9 gm/dl (10.1-14.3) L 11/23/21 09:09 Hct 31.1 % (30.3-42.9) 11/23/21 09:09 MCV 86 fl (79-97) 11/23/21 09:09 MCH 27 pg (28-32) L 11/23/21 09:09 MCHC 32 % (30-34) 11/23/21 09:09 RDW 15.6 % (13.2-15.2) H 11/23/21 09:09 Plt Count 185 K/mm3 (140-440) 11/23/21 09:09 Lymph % (Auto) 24.3 % (13.4-35.0) 11/23/21 09:09 [place] % (Auto) 10.0 % (0.0-7.3) H 11/23/21 09:09 Eos % (Auto) 0.2 % (0.0-4.3) 11/23/21 09:09 Baso % (Auto) 0.5 % (0.0-1.8) 11/23/21 09:09 Lymph # (Auto) 1.2 K/mm3 (1.2-5.4) 11/23/21 09:09 [place] # (Auto) 0.5 K/mm3 (0.0-0.8) 11/23/21 09:09 Eos # (Auto) 0.0 K/mm3 (0.0-0.4) 11/23/21 09:09 Baso # (Auto) 0.0 K/mm3 (0.0-0.1) 11/23/21 09:09 Seg Neutrophils % 65.0 % (40.0-70.0) 11/23/21 09:09 Seg Neutrophils # 3.2 K/mm3 (1.8-7.7) 11/23/21 09:09 PT 17.0 Sec. (12.2-14.9) H 11/20/21 23:52 INR 1.23 (0.87-1.13) H 11/20/21 23:52 Sodium 136 mmol/L (137-145) L 11/23/21 09:09 Potassium 4.8 mmol/L (3.6-5.0) D 11/23/21 09:09 Chloride 100.9 mmol/L (98-107) 11/23/21 09:09 Carbon Dioxide 15 mmol/L (22-30) L 11/23/21 09:09 Anion Gap 25 mmol/L 11/23/21 09:09 BUN 70 mg/dL (7-17) H 11/23/21 09:09 Creatinine 9.5 mg/dL (0.6-1.2) H 11/23/21 09:09 Estimated GFR 5 ml/min 11/23/21 09:09 BUN/Creatinine Ratio 7 % 11/23/21 09:09 Glucose 111 mg/dL (65-100) H 11/23/21 09:09 Calcium 6.5 mg/dL (8.4-10.2) L 11/23/21 09:09 Total Bilirubin 0.30 mg/dL (0.1-1.2) 11/23/21 09:09 AST 277 units/L (5-40) H 11/23/21 09:09 ALT 334 units/L (7-56) H 11/23/21 09:09 Alkaline Phosphatase 98 units/L (35-129) 11/23/21 09:09 Total Creatine Kinase 79 units/L (30-135) 11/20/21 23:52 Total Protein 8.0 g/dL (6.3-8.2) 11/23/21 09:09 Albumin 3.1 g/dL (3.9-5) L 11/23/21 09:09 Albumin/Globulin Ratio 0.6 % 11/23/21 09:09 Active Medications - Current Medications Current Medications: Generic Name Dose Route Start Last Admin Trade Name Freq PRN Reason Stop Dose Admin Acetaminophen 650 mg 11/21/21 05:04 Acetaminophen 325 Mg Tab PO Q4H PRN Pain MILD(1-3)/Fever >100.5/DAVIS Albuterol 2.5 mg 11/21/21 05:04 Albuterol 2.5 Mg/3 Ml Nebu IH Q3HRT PRN Shortness Of Breath Calcitriol 0.5 mcg 11/22/21 11:00 11/23/21 09:08 Calcitriol 0.5 Mcg Cap PO 0.5 mcg QDAY JIMMY Administration Calcium Acetate 1,334 mg 11/22/21 14:00 11/23/21 15:00 Calcium Acetate 667 Mg Cap PO Not Given TID JIMMY Famotidine 10 mg 11/21/21 10:00 11/23/21 09:08 Famotidine 10 Mg Tab PO 10 mg BID JIMMY Administration Heparin Sodium (Porcine) 5,000 unit 11/21/21 10:00 11/23/21 09:18 Heparin 5,000 Unit/1 Ml Vial SUB-Q 5,000 unit Q12HR JIMMY Administration Hydralazine HCl 50 mg 11/21/21 14:00 11/23/21 15:00 Hydralazine 25 Mg Tab PO Not Given Q8HR JIMMY Acyclovir 320 mg/ Sodium 106.4 mls @ 100 mls/hr 11/21/21 18:00 11/22/21 18:55 Chloride IV 100 mls/hr Q24H JIMMY Administration Protocol Labetalol HCl 20 mg 11/23/21 00:38 11/23/21 14:47 Labetalol 20 Mg/4 Ml Inj IV 20 mg Q6HR PRN Administration SBP>170 Metoprolol Tartrate 100 mg 11/21/21 10:00 11/23/21 09:08 Metoprolol Tartrate 100 Mg Tab PO 100 mg QDAY JIMMY Administration Morphine Sulfate 2 mg 11/21/21 05:04 Morphine 2 Mg/1 Ml Inj IV Q4H PRN Pain, Moderate (4-6) Ondansetron HCl 4 mg 11/21/21 05:04 Ondansetron 4 Mg/2 Ml Inj IV Q8H PRN Nausea And Vomiting Oxycodone/Acetaminophen 1 tab 11/21/21 16:22 Oxycodone /Acetaminophen 5-325mg Tab PO Q6H PRN Pain, Moderate (4-6) Sodium Bicarbonate 1,950 mg 11/22/21 08:00 11/23/21 15:00 Sodium Bicarbonate 650 Mg Tab PO Not Given TID JIMMY Sodium Chloride 10 ml 11/21/21 10:00 11/23/21 09:10 Sodium Chloride 0.9% 10 Ml Flush Syringe IV 10 ml BID JIMMY Administration Sodium Chloride 10 ml 11/21/21 05:04 Sodium Chloride 0.9% 10 Ml Flush Syringe IV PRN PRN LINE FLUSH Nutrition/Malnutrition Assess - Dietary Evaluation Nutrition/Malnutrition Findings: Nutrition Notes Start: 11/22/21 11:42 Freq: Status: Active Protocol: Document 11/22/21 11:42 AURY (Rec: 11/22/21 12:03 AURY [id number]) Nutrition Notes 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 Current Diet Cardiac -Renal- Diet (since B 11/21). Labs/Tests 11/22: Na 132, K 6.2, CO2 12, BUN 68, Crea 9.3, Ca 6.1. Pertinent Medications 11/22: Phoslo, Kionex, others nutritionally unremarkable. 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 Weight Status Overweight Subjective/Other Information RD consult for skin risk assessment. No reports available on Pt's PO intake of meals at the time , will assess at F/U. Pt is on Room Air, O2 saturation @ 98%, according to Physical Assessment History notes. Pt has missing teeth, according to Physical Assessment History notes. Pt presents multiple blisters on the L-supraorbital area and the forhead as signs of concern for skin risk at this time, according to Physical Assessment History notes. Pt has a CKD stage V, but refuses HD, according to Progress notes. I will prescribe Renal modification to Pt's current Diet to support Pt's CKD-V condition. Percent of energy/protein needs met: Prescribed Cardiac -Renal- Diet provides for energy/ protein needs (2,230 Kcal/85 g ) during LOS. Burn Absent Trauma Absent GI Symptoms None Food Allergy No Skin Integrity/Comment L-supraorbital & forhead Blisters. Minimum of two criteria No Fluid Accumulation N/A Reduced Captain Room Service Strength N/A (non-severe) Protein-Calorie Malnutrition N\A #1 Nutrition Diagnosis Altered nutrition-related laboratory values Etiology CKD-V. As Evidenced by Signs and Symptoms 11/22: Na 132, K 6.2, BUN 68, Crea 9.3, Ca 6.1. Is patient on ventilator? No Is Patient Ambulatory and/or Out of Bed No REE-([facility]-confined to bed) 157.515 Calculation Used for Recommendations [facility] Additional Notes Protein: 0.6-0.8 g/Kg ABW; 45- 60 g/day. Fluids: 1 ml/Kcal, or as per MD. Nutrition Intervention Change Diet Order: Modify Cardiac Diet with Renal restriction. Goal #1 Adjust the dietary intervention to better serve Pt's needs and clinical conditions during LOS. Follow-Up By: 11/29/21 Additional Comments Continue monitoring food tolerance, %PO intake of meals , and BM.
[2021-11-23] MEDS: SODIUM CHLORIDE 0.9% IV SCH (18:30)
[2021-11-23] MEDS: ACYCLOVIR IV SCH (18:30)
--- NOTE | 2021-11-23 19:34 | Event Note ---
Date: 11/23/21 Patient son was at the bedside, discussed in detail patient's condition, tests and reports, consultants evaluation and recommendations Treatment plan, prognosis. Patient's son Mr. Sylvester was really overwhelmed, however after discussing each diagnosis, each treatment plan In detail, he understood patient's condition and the reason for intermittent confusion. Patient has history of recurrent CVA 5-6 times with residual right-sided weakness and severe dysarthria[baseline] As patient was little more confused this morning, requested a CT head without contrast, which did not show any acute abnormalities. Patient's son was updated with that normal CT scan report. We will continue current management, nephrology and ID consultants are following the patient. Plan of care reviewed with the patient's nurse Mr. Castellon I also discussed patient's CODE STATUS, goals of treatment, patient's son Higinio Prajapati try to talk to his mother About DNR, but they have not decided yet. Full code at this point
--- NOTE | 2021-11-23 19:36 | Event Note ---
Date: 11/23/21 I saw the patient in the room at the bedside and evaluated Patient is calm and quiet, opening eyes this morning to very simple questions Patient is confused intermittently nurse reports that, she has difficulty in swallowing. We will observe closely overnight, and consult speech therapist if no improvement Try to give IV medications , and oral medications if tolerated Plan of care reviewed with the patient's nurse Mr. Castellon
[2021-11-23] MEDS: hydrALAZINE 20 MG/1 ML INJ IV SCH (22:38)
[2021-11-24] MEDS ORDERED: ADENOSINE 6 MG/2 ML INJ IV NR ×3 (01:11→03:00)
[2021-11-24] MEDS ORDERED: METOPROLOL TARTRATE 5 MG/5 ML INJ IV ONE ×2 (01:37)
[2021-11-24] MEDS ORDERED: ADENOSINE 6 MG/2 ML INJ IV ONE (03:18)
--- NOTE | 2021-11-24 04:32 | Event Note ---
Date: 11/24/21 Called to see 61-year-old -[place] female who has been on admission for multiple medical problems including shingles, renal failure, hyperkalemia who has been tachycardic. EKG shows SVT. Patient was given a rounds of adenosine6 mg, 12 mg and subsequently another 12 mg with good response. Patient has no known history of cardiac arrhythmia. Will request echocardiogram and also consult cardiology for evaluation and recommendations. Incoming hospitalist to follow-up.
[2021-11-24] MEDS: hydrALAZINE 20 MG/1 ML INJ IV SCH ×3 (04:50→21:30)
[2021-11-24 08:37] LABS: Creatine Kinase MB 2.3 ng/mL (0.0-4.0)
[2021-11-24 08:38] LABS: Albumin 2.8 g/dL (3.9-5); Calcium 6.8 mg/dL (8.4-10.2)
[2021-11-24 08:42] LABS: Basophils % (Auto) 0.5 % (0.0-1.8); Eosinophils % (Auto) 0.3 % (0.0-4.3); Hematocrit 30.7 % (30.3-42.9); Lymphocytes # (Auto) 2.2 K/mm3 (1.2-5.4); Lymphocytes % (Auto) 32.4 % (13.4-35.0); Mean Corpuscular HGB Conc 33 % (30-34); Mean Corpuscular Volume 84 fl (79-97); Monocytes # (Auto) 0.6 K/mm3 (0.0-0.8); Monocytes % (Auto) 8.4 % (0.0-7.3); Platelet Count 197 K/mm3 (140-440); Red Blood Count 3.66 M/mm3 (3.65-5.03); Red Cell Distribution Width 15.1 % (13.2-15.2)
--- NOTE | 2021-11-24 09:01 | Progress Note ---
Assessment and Plan Assessment and plan: 61-year-old female patient with history of chronic kidney disease follows with Dr. Valdez not on dialysis lupus, hypertension ,peripheral artery disease status post bilateral amputation presented to the emergency room with the complaints of left supraorbital and forehead rash/shingles for the last 4-5 days.Patient is unable to give the details. She reports that she discussed with her primary care physician . And he gave some treatment instructions. Patient was admitted with the following diagnosis/acute medical conditions; --SVT[supraventricular tachycardia] 11/24/2021 Patient had supraventricular tachycardia with heart rate ranging 175 Received adenosine 6, 12, 12 with improvement Currently patient's heart rate ranges between 120s to 130s Continue beta-blockers. IV metoprolol as needed Follow echocardiogram Cardiology consulted by the night physician .--Chronic renal insufficiency, stage V Worsening renal function/ Not on dialysis closely , follows with Dr. Valdez monitor renal function, avoid nephrotoxins Nephrology and son discussing about the possibility of hemodialysis Patient refused initially ---Transaminitis; Unknown baseline, closely monitor and trend GI evaluation -Herpes zoster/shingles[left upper supraorbital area and forehead] Pain medications, local care, contact isolation Continue IV acyclovir, transition to oral once all the lesions are crusted ID recommendations noted and appreciated Wound care if needed, without superimposed bacterial infection No visual defect, patient was able to count the fingers and read big print[on admission] Patient needs ophthalmology evaluation upon discharge[no services available] Follow ID evaluation recommendations --Hyperkalemia; resolved Calcium gluconate, Kayexalate Total monitor electrolytes nephrology following, - 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 Stable Continue supportive care --Severe dysarthria; [history of multiple CVAs] speech therapy, swallow eval, tube feeding if no improvement -History of of lupus Continue supportive care Immunocompromised -- History of PAD (peripheral artery disease) Bilateral LE amputations Supportive care, --Bilateral lower extremity amputations; Due to peripheral arterial disease --History of hypertensive urgency; present on admission Resume all home antihypertensives and as needed medications Closely monitor blood pressures --Metabolic acidosis Due to chronic kidney disease stage V Continue IV fluids, nephrology following --Full CODE STATUS -DVT prophylaxis Subcu Heparin 5000 units every 12 hours GI prophylaxis oral Pepcid We will closely monitor the patient and adjust management as needed follow consults evaluation and recommendations Plan of care reviewed with the patient and her nurse Try to contact family for more medical information Advance care planning; +30 minutes Patient's condition discussed with the patient, diagnosis discussed, tests and reports discussed Treatment plan discussed, patient had questions, answered all of them Try to contact family and get more medical information. 11/23/2019; patient is on IV acyclovir, nephrology evaluated Medications of renally dosed, gentle opening of the left eye Patient found for fevers, and read the big print. 11/23; patient confused intermittently Severe dysarthria sometimes unable to understand Consultants and recommendations noted and appreciated 11/24; patient is critically ill with multiple medical problems Discussed in detail with the son the goals of treatment, CODE STATUS The son Higinio Prajapati wants full CODE STATUS. He also wants to talk to all the consultants, informed patient's nurse History Interval history: I have seen and examined the patient at the bedside Last night events noted Patient went into SVT early this morning with heart rate of 170s Received adenosine with improvement Currently patient's heart rate is in 130s Patient remains confused, severe dysarthria Vital signs noted Hospitalist Physical - Constitutional Vitals: Temp Pulse Resp BP Pulse Ox 98.6 F 175 H 19 155/97 100 11/24/21 04:37 11/24/21 04:50 11/24/21 04:37 11/24/21 04:37 11/24/21 04:37 General appearance: Present: mild distress, well-nourished, other (Shingles rash on the left supraorbital/forehead area, upper aspect , healing) - EENT Eyes: Present: PERRL, EOM intact - Neck Neck: Present: supple, normal ROM - Respiratory Respiratory effort: normal Respiratory: bilateral: diminished, negative: rales, rhonchi, wheezing - Cardiovascular Rhythm: regular Heart Sounds: Present: S1 & S2 - Extremities Extremities: no ischemia, No edema, abnormal (Bilateral amputation) - Abdominal General gastrointestinal: soft, non-tender, non-distended, normal bowel sounds - Integumentary Integumentary: Present: warm, rash (Shingles rash from the left forehead) - Psychiatric Psychiatric: other (Confused) - Neurologic Neurologic: other (Confused. Residual dysarthria, right hemiparesis) Results - Labs CBC & Chem 7: 11/24/21 08:06 11/24/21 08:06 Labs: Laboratory Last Values WBC 6.6 K/mm3 (4.5-11.0) 11/24/21 08:06 RBC 3.66 M/mm3 (3.65-5.03) 11/24/21 08:06 Hgb 10.0 gm/dl (10.1-14.3) L 11/24/21 08:06 Hct 30.7 % (30.3-42.9) 11/24/21 08:06 MCV 84 fl (79-97) 11/24/21 08:06 MCH 27 pg (28-32) L 11/24/21 08:06 MCHC 33 % (30-34) 11/24/21 08:06 RDW 15.1 % (13.2-15.2) 11/24/21 08:06 Plt Count 197 K/mm3 (140-440) 11/24/21 08:06 Lymph % (Auto) 32.4 % (13.4-35.0) 11/24/21 08:06 [place] % (Auto) 8.4 % (0.0-7.3) H 11/24/21 08:06 Eos % (Auto) 0.3 % (0.0-4.3) 11/24/21 08:06 Baso % (Auto) 0.5 % (0.0-1.8) 11/24/21 08:06 Lymph # (Auto) 2.2 K/mm3 (1.2-5.4) 11/24/21 08:06 [place] # (Auto) 0.6 K/mm3 (0.0-0.8) 11/24/21 08:06 Eos # (Auto) 0.0 K/mm3 (0.0-0.4) 11/24/21 08:06 Baso # (Auto) 0.0 K/mm3 (0.0-0.1) 11/24/21 08:06 Seg Neutrophils % 58.4 % (40.0-70.0) 11/24/21 08:06 Seg Neutrophils # 3.9 K/mm3 (1.8-7.7) 11/24/21 08:06 PT 17.0 Sec. (12.2-14.9) H 11/20/21 23:52 INR 1.23 (0.87-1.13) H 11/20/21 23:52 Sodium 136 mmol/L (137-145) L 11/23/21 09:09 Potassium 4.8 mmol/L (3.6-5.0) D 11/23/21 09:09 Chloride 100.9 mmol/L (98-107) 11/23/21 09:09 Carbon Dioxide 15 mmol/L (22-30) L 11/23/21 09:09 Anion Gap 25 mmol/L 11/23/21 09:09 BUN 70 mg/dL (7-17) H 11/23/21 09:09 Creatinine 9.5 mg/dL (0.6-1.2) H 11/23/21 09:09 Estimated GFR 5 ml/min 11/23/21 09:09 BUN/Creatinine Ratio 7 % 11/23/21 09:09 Glucose 111 mg/dL (65-100) H 11/23/21 09:09 Calcium 6.5 mg/dL (8.4-10.2) L 11/23/21 09:09 Total Bilirubin 0.30 mg/dL (0.1-1.2) 11/23/21 09:09 AST 277 units/L (5-40) H 11/23/21 09:09 ALT 334 units/L (7-56) H 11/23/21 09:09 Alkaline Phosphatase 98 units/L (35-129) 11/23/21 09:09 Total Creatine Kinase 79 units/L (30-135) 11/20/21 23:52 Total Protein 8.0 g/dL (6.3-8.2) 11/23/21 09:09 Albumin 3.1 g/dL (3.9-5) L 11/23/21 09:09 Albumin/Globulin Ratio 0.5 % 11/24/21 08:06 Microbiology: Microbiology 11/22/21 20:15 Face Wound Culture - Preliminary Active Medications - Current Medications Current Medications: Generic Name Dose Route Start Last Admin Trade Name Freq PRN Reason Stop Dose Admin Acetaminophen 650 mg 11/21/21 05:04 Acetaminophen 325 Mg Tab PO Q4H PRN Pain MILD(1-3)/Fever >100.5/DAVIS Albuterol 2.5 mg 11/21/21 05:04 Albuterol 2.5 Mg/3 Ml Nebu IH Q3HRT PRN Shortness Of Breath Calcitriol 0.5 mcg 11/22/21 11:00 11/23/21 09:08 Calcitriol 0.5 Mcg Cap PO 0.5 mcg QDAY JIMMY Administration Calcium Acetate 1,334 mg 11/22/21 14:00 11/23/21 22:38 Calcium Acetate 667 Mg Cap PO 1,334 mg TID JIMMY Administration Famotidine 10 mg 11/21/21 10:00 11/23/21 22:39 Famotidine 10 Mg Tab PO 10 mg BID JIMMY Administration Heparin Sodium (Porcine) 5,000 unit 11/21/21 10:00 11/23/21 22:39 Heparin 5,000 Unit/1 Ml Vial SUB-Q 5,000 unit Q12HR JIMMY Administration Hydralazine HCl 20 mg 11/23/21 20:00 11/24/21 04:50 Hydralazine 20 Mg/1 Ml Inj IV Not Given Q8H [facility] Acyclovir 320 mg/ Sodium 106.4 mls @ 100 mls/hr 11/21/21 18:00 11/23/21 18:30 Chloride IV 100 mls/hr Q24H [facility] Administration Protocol Labetalol HCl 20 mg 11/23/21 00:38 11/23/21 22:40 Labetalol 20 Mg/4 Ml Inj IV 20 mg Q6HR PRN Administration SBP>170 Metoprolol Tartrate 100 mg 11/21/21 10:00 11/23/21 09:08 Metoprolol Tartrate 100 Mg Tab PO 100 mg QDAY [facility] Administration Morphine Sulfate 2 mg 11/21/21 05:04 Morphine 2 Mg/1 Ml Inj IV Q4H PRN Pain, Moderate (4-6) Ondansetron HCl 4 mg 11/21/21 05:04 Ondansetron 4 Mg/2 Ml Inj IV Q8H PRN Nausea And Vomiting Oxycodone/Acetaminophen 1 tab 11/21/21 16:22 Oxycodone /Acetaminophen 5-325mg Tab PO Q6H PRN Pain, Moderate (4-6) Sodium Bicarbonate 1,950 mg 11/22/21 08:00 11/23/21 22:38 Sodium Bicarbonate 650 Mg Tab PO 1,950 mg TID JIMMY Administration Sodium Chloride 10 ml 11/21/21 10:00 11/23/21 22:39 Sodium Chloride 0.9% 10 Ml Flush Syringe IV 10 ml BID JIMMY Administration Sodium Chloride 10 ml 11/21/21 05:04 Sodium Chloride 0.9% 10 Ml Flush Syringe IV PRN PRN LINE FLUSH Nutrition/Malnutrition Assess - Dietary Evaluation Nutrition/Malnutrition Findings: Nutrition Notes Start: 11/22/21 11:42 Freq: Status: Active Protocol: Document 11/22/21 11:42 AURY (Rec: 11/22/21 12:03 AURY [id number]) Nutrition 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 Current Diet Cardiac -Renal- Diet (since B 11/21). Labs/Tests 11/22: Na 132, K 6.2, CO2 12, BUN 68, Crea 9.3, Ca 6.1. Pertinent Medications 11/22: Phoslo, Kionex, others nutritionally unremarkable. 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 Weight Status Overweight Subjective/Other Information RD consult for skin risk assessment. No reports available on Pt's PO intake of meals at the time , will assess at F/U. Pt is on Room Air, O2 saturation @ 98%, according to Physical Assessment History notes. Pt has missing teeth, according to Physical Assessment History notes. Pt presents multiple blisters on the L-supraorbital area and the forhead as signs of concern for skin risk at this time, according to Physical Assessment History notes. Pt has a CKD stage V, but refuses HD, according to Progress notes. I will prescribe Renal modification to Pt's current Diet to support Pt's CKD-V condition. Percent of energy/protein needs met: Prescribed Cardiac -Renal- Diet provides for energy/ protein needs (2,230 Kcal/85 g ) during LOS. Burn Absent Trauma Absent GI Symptoms None Food Allergy No Skin Integrity/Comment L-supraorbital & forhead Blisters. Minimum of two criteria No Fluid Accumulation N/A Reduced Rn Psychiatric Strength N/A (non-severe) Protein-Calorie Malnutrition N\A #1 Nutrition Diagnosis Altered nutrition-related laboratory values Etiology CKD-V. As Evidenced by Signs and Symptoms 11/22: Na 132, K 6.2, BUN 68, Crea 9.3, Ca 6.1. Is patient on ventilator? No Is Patient Ambulatory and/or Out of Bed No REE-([facility]-confined to bed) 7564.660 Calculation Used for Recommendations [facility] Additional Notes Protein: 0.6-0.8 g/Kg ABW; 45- 60 g/day. Fluids: 1 ml/Kcal, or as per MD. Nutrition Intervention Change Diet Order: Modify Cardiac Diet with Renal restriction. Goal #1 Adjust the dietary intervention to better serve Pt's needs and clinical conditions during LOS. Follow-Up By: 11/29/21 Additional Comments Continue monitoring food tolerance, %PO intake of meals , and BM.
[2021-11-24] MEDS: SODIUM BICARBONATE 650 MG TAB PO SCH ×3 (09:17→20:25)
[2021-11-24] MEDS: CALCITRIOL 0.5 MCG CAP PO SCH (09:17)
[2021-11-24] MEDS: FAMOTIDINE 10 MG TAB PO SCH ×2 (09:18→21:14)
[2021-11-24] MEDS: HEPARIN 5,000 UNIT/1 ML VIAL SUB-Q SCH ×2 (09:18→21:37)
[2021-11-24] MEDS: METOPROLOL TARTRATE 100 MG TAB PO SCH ×3 (09:18→21:14)
[2021-11-24] MEDS: CALCIUM ACETATE 667 MG CAP PO SCH ×3 (09:18→20:24)
--- NOTE | 2021-11-24 09:23 | Event Note ---
Date: 11/24/21 Patient's son Higinio Prajapati [[phone] ]requested me to DC acyclovir immediately as it is causing many problems. And want to discuss with all the specialists regarding his mother's care. I encouraged him to talk to the patient's nurse who can help him to get in touch with the consultants
[2021-11-24 09:35] LABS: Chol/HDL Ratio 6.28 %
--- NOTE | 2021-11-24 09:41 | XRay Report ---
CHEST 1 VIEW INDICATION / CLINICAL INFORMATION: Shortness of breath/tachycardia. FINDINGS: SUPPORT DEVICES: None. HEART / MEDIASTINUM: Cardiomegaly. LUNGS / PLEURA: No significant pulmonary or pleural abnormality. No pneumothorax. ADDITIONAL FINDINGS: Large hiatal hernia. IMPRESSION: Cardiomegaly. No pneumothorax or acute airspace disease. Signer Name: Fox Amaya MD Signed: 11/24/2021 9:36 AM Workstation Name: [facility]
--- NOTE | 2021-11-24 10:17 | Gastroenterology Consultation ---
History of Present Illness - Reason for Consult Consult date: 11/24/21 Transaminitis Requesting physician: RASHIDA BURRIS - History of Present Illness The patient is moaning (had pain meds for shingles) and unable to provide a history. She has mild transaminitis with normal bili/AP, but was admitted for acute shingles of the facial nerve. She has been on ACV, and also had worsening of CKD to stage V, AMS, and SVT. She has no documented hx of liver disease/hepatitis. No other new meds apparent. She does have a history of morbid obesity and lupus. She is disoriented and can not answer questions coherently at present, but does not appear to be in distress except for the face (keeps reaching to L face/shingles). Past History Past Medical History: renal failure, stroke, other (Lupus, PAD) Past Surgical History: Other (Bilateral lower extremity amputation) Social history: denies: smoking Family history: hypertension Medications and Allergies Allergies Allergy/AdvReac Type Severity Reaction Status Date / Time No Known Allergies Allergy Verified 11/20/21 23:57 Home Medications Medication Instructions Recorded Confirmed Last Taken Type Metoprolol 100 mg PO DAILY 11/21/21 11/21/21 11/20/21 History Active Meds: Active Medications Acetaminophen (Acetaminophen 325 Mg Tab) 650 mg PO Q4H PRN PRN Reason: Pain MILD(1-3)/Fever >100.5/DAVIS Albuterol (Albuterol 2.5 Mg/3 Ml Nebu) 2.5 mg IH Q3HRT PRN PRN Reason: Shortness Of Breath Calcitriol (Calcitriol 0.5 Mcg Cap) 0.5 mcg PO QDAY [facility] Last Admin: 11/24/21 09:17 Dose: 0.5 mcg Calcium Acetate (Calcium Acetate 667 Mg Cap) 1,334 mg PO TID [facility] Last Admin: 11/24/21 09:18 Dose: 1,334 mg Famotidine (Famotidine 10 Mg Tab) 10 mg PO BID [facility] Last Admin: 11/24/21 09:18 Dose: 10 mg Heparin Sodium (Porcine) (Heparin 5,000 Unit/1 Ml Vial) 5,000 unit SUB-Q Q12HR [facility] Last Admin: 11/24/21 09:18 Dose: 5,000 unit Hydralazine HCl (Hydralazine 20 Mg/1 Ml Inj) 20 mg IV Q8H [facility] Last Admin: 11/24/21 04:50 Dose: Not Given Labetalol HCl (Labetalol 20 Mg/4 Ml Inj) 20 mg IV Q6HR PRN PRN Reason: SBP>170 Last Admin: 11/23/21 22:40 Dose: 20 mg Metoprolol Tartrate (Metoprolol Tartrate 100 Mg Tab) 100 mg PO QDAY [facility] Last Admin: 11/24/21 09:18 Dose: 100 mg Morphine Sulfate (Morphine 2 Mg/1 Ml Inj) 2 mg IV Q4H PRN PRN Reason: Pain, Moderate (4-6) Last Admin: 11/24/21 09:19 Dose: 2 mg Ondansetron HCl (Ondansetron 4 Mg/2 Ml Inj) 4 mg IV Q8H PRN PRN Reason: Nausea And Vomiting Oxycodone/Acetaminophen (Oxycodone /Acetaminophen 5-325mg Tab) 1 tab PO Q6H PRN PRN Reason: Pain, Moderate (4-6) Sodium Bicarbonate (Sodium Bicarbonate 650 Mg Tab) 1,950 mg PO TID [facility] Last Admin: 11/24/21 09:17 Dose: 1,950 mg Sodium Chloride (Sodium Chloride 0.9% 10 Ml Flush Syringe) 10 ml IV BID [facility] Last Admin: 11/24/21 09:18 Dose: 10 ml Sodium Chloride (Sodium Chloride 0.9% 10 Ml Flush Syringe) 10 ml IV PRN PRN PRN Reason: LINE FLUSH I HAVE REVIEWED/RECONCILED MEDICATIONS Review of Systems - Review of Systems ROS unobtainable: due to mental status Exam - Constitutional Vital Signs: Temp Pulse Resp BP Pulse Ox 98.6 F 133 H 19 155/97 100 11/24/21 04:37 11/24/21 09:18 11/24/21 04:37 11/24/21 09:18 11/24/21 04:37 General appearance: mild distress - EENT Eyes: other (Unable to assess L eye (severe crusting) but R eye WNL) ENT: poor dentition, no thrush - Neck Neck: supple, normal ROM - Respiratory Respiratory effort: normal Respiratory: bilateral: CTA - Cardiovascular Heart Rate: 120 Rhythm: regular Heart Sounds: Present: S1 & S2 Extremities: no ischemia, abnormal (Bilateral LE amputation) - Gastrointestinal General gastrointestinal: Present: soft, non-tender, non-distended - Integumentary Integumentary: Present: clear, warm, dry - Neurologic Neurological: other (Disoriented, pulling at sheet, unable to follow commands) - Labs CBC & Chem 7: 11/24/21 08:06 11/24/21 08:06 Lab Results: Laboratory Results - last 24 hr 11/23/21 11/24/21 11/24/21 09:09 08:06 08:06 WBC 6.6 RBC 3.66 Hgb 10.0 L Hct 30.7 MCV 84 MCH 27 L MCHC 33 RDW 15.1 Plt Count 197 Lymph % (Auto) 32.4 [place] % (Auto) 8.4 H Eos % (Auto) 0.3 Baso % (Auto) 0.5 Lymph # (Auto) 2.2 [place] # (Auto) 0.6 Eos # (Auto) 0.0 Baso # (Auto) 0.0 Seg Neutrophils % 58.4 Seg Neutrophils # 3.9 Sodium 136 L Potassium 4.8 D 5.9 H D Chloride 101.8 Carbon Dioxide 15 L Anion Gap 25 BUN 75 H Creatinine 9.5 H 10.1 H Estimated GFR 5 5 BUN/Creatinine Ratio 7 7 Glucose 105 H Calcium 6.8 L Phosphorus 4.60 H Magnesium 1.60 L Total Bilirubin 0.40 AST 146 H ALT 247 H Alkaline Phosphatase 90 Total Creatine Kinase 219 H CK-MB (CK-2) 2.3 CK-MB (CK-2) Rel Index 1.0 Troponin T 0.144 H* Total Protein 8.2 Albumin 2.8 L Albumin/Globulin Ratio 0.5 Triglycerides 155 H Cholesterol 132 LDL Cholesterol Direct 61 HDL Cholesterol 21 L Cholesterol/HDL Ratio 6.28 Assessment and Plan - Patient Problems (1) Transaminitis Current Visit: Yes Status: Acute Plan to address problem: - The patient has good synthetic function (INR), a normal AP/bili, and normal platelets. There is no sign of ESLD/cirrhosis, and no all current medications are acceptable. - The LFTs were elevated on admit, but she was also hypotensive (?dehydrated) at home, so there may be an acute ischemic injury component; however, we will also check hepatitis serologies. - She does have lupus, but would not start any immunosuppressive medications at present given her severe shingles. - Continue current supportive care with BP control, adequate hydration, nutritional therapy, and avoid excess hepatotoxic meds; I feel the benefits of acyclovir outweight the risks at present (and not usually hepatotoxic). - I will order a RUQ US to assure no mass or abscess.
--- NOTE | 2021-11-24 10:24 | Electrocardiograph Report ---
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
--- NOTE | 2021-11-24 12:51 | Progress Note ---
Assessment and Plan Impression: * Stage V CKD --SCr 4.8mg/dL in Apr 2021 * Herpes zoster * Hyperkalemia * Metabolic acidosis * Secondary Hyperparathyroidism * Azotemia * Transaminitis * Hypertension Plan: * Patient with progression of chronic kidney disease. Patient well known to myself for CKD, has been refusing dialysis in generally but has stated "would do it" if needed. * Spoke with son at length today- given likely uremia, hyperkalemia, acidosis do feel that patient will benefit from initiation of dialysis at this time. Son agrees and would like to move forward with this as well, as patient herself is unable to make decisions (but as noted has stated would want dialysis in worst case scenario) * Did review with son that will likely need to remain on HD after starting given severity of HD and will need to plan for outpatient HD center * Consult for IR/vascular for permacath placement with initiation of HD thereafter per new start protocol to avoid dialysis disequilibrium * Continue Na bicarbonate * Kayexlyate for hyperkalemia prn * continue home calcitriol, calcium acetate * Antiviral per primary team, ID * Dose medications for renal function * Avoid potential nephrotoxins * AM labs Subjective Date of service: 11/24/21 Interval history: Remains altered mentation this. Had episode of tachycardia and was given adenosine, cardiology now following Objective - Exam Narrative Exam: General appearance: confused EENT: other (vesicular rash involving left eye, forehead, baptist; crusting lesions) Respiratory: Clear to Ascultation Heart: regular, S1S2 Gastrointestinal: Present: normal Integumentary: warm and dry Musculoskeletal: Present: other (bilateral LE amputation) - Vital Signs Vital signs: Vital Signs - 12hr 11/24/21 11/24/21 11/24/21 01:43 02:54 03:15 Temperature Pulse Rate 140 H 173 H 176 H Respiratory 22 Rate Blood Pressure 142/87 153/99 155/90 O2 Sat by Pulse 100 87 Oximetry 11/24/21 11/24/21 11/24/21 04:37 04:50 08:07 Temperature 98.6 F 98.7 F Pulse Rate 173 H 175 H 128 H Respiratory 19 Rate Blood Pressure 155/97 183/122 O2 Sat by Pulse 100 97 Oximetry 11/24/21 09:18 Temperature Pulse Rate 133 H Respiratory Rate Blood Pressure 155/97 O2 Sat by Pulse Oximetry - Lab 11/24/21 08:06 11/24/21 08:06 Most recent lab results Calcium 6.8 mg/dL (8.4-10.2) L 11/24/21 08:06 Phosphorus 4.60 mg/dL (2.5-4.5) H 11/24/21 08:06 Magnesium 1.60 mg/dL (1.7-2.3) L 11/24/21 08:06 Medications & Allergies - Medications Allergies/Adverse Reactions: Allergies peanut Allergy (Verified 11/24/21 13:01) Anaphylaxis morphine Adverse Reaction (Verified 11/24/21 13:01) Dizziness Pork/Porcine Containing Products Adverse Reaction (Verified 11/24/21 13:01) Swelling Home Medications: Home Medications Medication Instructions Recorded Confirmed Last Taken Type Metoprolol 100 mg PO DAILY 11/21/21 11/21/21 11/20/21 History Active Medications: Generic Name Dose Route Start Last Admin Trade Name Freq PRN Reason Stop Dose Admin Acetaminophen 650 mg 11/21/21 05:04 Acetaminophen 325 Mg Tab PO Q4H PRN Pain MILD(1-3)/Fever >100.5/DAVIS Albuterol 2.5 mg 11/21/21 05:04 Albuterol 2.5 Mg/3 Ml Nebu IH Q3HRT PRN Shortness Of Breath Calcitriol 0.5 mcg 11/22/21 11:00 11/24/21 09:17 Calcitriol 0.5 Mcg Cap PO 0.5 mcg QDAY JIMMY Administration Calcium Acetate 1,334 mg 11/22/21 14:00 11/24/21 09:18 Calcium Acetate 667 Mg Cap PO 1,334 mg TID JIMMY Administration Famotidine 10 mg 11/21/21 10:00 11/24/21 09:18 Famotidine 10 Mg Tab PO 10 mg BID JIMMY Administration Heparin Sodium (Porcine) 5,000 unit 11/21/21 10:00 11/24/21 09:18 Heparin 5,000 Unit/1 Ml Vial SUB-Q 5,000 unit Q12HR JIMMY Administration Hydralazine HCl 20 mg 11/23/21 20:00 11/24/21 04:50 Hydralazine 20 Mg/1 Ml Inj IV Not Given Q8H JIMMY Labetalol HCl 20 mg 11/23/21 00:38 11/23/21 22:40 Labetalol 20 Mg/4 Ml Inj IV 20 mg Q6HR PRN Administration SBP>170 Metoprolol Tartrate 100 mg 11/21/21 10:00 11/24/21 09:18 Metoprolol Tartrate 100 Mg Tab PO 100 mg QDAY JIMMY Administration Morphine Sulfate 2 mg 11/21/21 05:04 11/24/21 09:19 Morphine 2 Mg/1 Ml Inj IV 2 mg Q4H PRN Administration Pain, Moderate (4-6) Ondansetron HCl 4 mg 11/21/21 05:04 Ondansetron 4 Mg/2 Ml Inj IV Q8H PRN Nausea And Vomiting Oxycodone/Acetaminophen 1 tab 11/21/21 16:22 Oxycodone /Acetaminophen 5-325mg Tab PO Q6H PRN Pain, Moderate (4-6) Sodium Bicarbonate 1,950 mg 11/22/21 08:00 11/24/21 09:17 Sodium Bicarbonate 650 Mg Tab PO 1,950 mg TID JIMMY Administration Sodium Chloride 10 ml 11/21/21 10:00 11/24/21 09:18 Sodium Chloride 0.9% 10 Ml Flush Syringe IV 10 ml BID JIMMY Administration Sodium Chloride 10 ml 11/21/21 05:04 Sodium Chloride 0.9% 10 Ml Flush Syringe IV PRN PRN LINE FLUSH
[2021-11-24] MEDS ORDERED: SIMPLE SYRUP 15 ML FEEDTUBE PRN ×2 (14:04)
[2021-11-24] MEDS ORDERED: LIPASE 10,500/PROTEASE 25,000/AMYLASE 43,750 (UNITS) DR CAP FEEDTUBE PRN (14:04)
--- NOTE | 2021-11-24 14:35 | Consultation ---
History of Present Illness Consult date: 11/24/21 Consult reason: arrhythmia History of present illness: The patient is a 61-year-old woman with multiple medical problems. She has m orbid obesity, lupus, bilateral amputee, chronic kidney disease but no documented prior cardiac history. The patient was noted to be on Eliquis therapy as an outpatient, but indication is unknown. 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 In addition, she is found with end-stage renal failure, creatinine is currently 10.1, patient is not yet on hemodialysis. She was admitted 4 days ago, and has been under internal medicine and nephrology management. Early this morning, she was noted with a sustained narrow complex tachycardia on the quality assurance monitor body. Twelve-lead EKG showed this to be an AV node reentry tachycardia at 177. The patient was treated with serial doses of intravenous adenosine, and reverted back to sinus rhythm. Cardiology consultation was requested. At this time, patient remains in mild sinus tachycardia. Past History Past Medical History: hypertension, renal failure, stroke, other (Lupus) Past Surgical History: Other (Bilateral lower extremity amputation) Social history: denies: smoking Family history: hypertension Medications and Allergies Allergies Allergy/AdvReac Type Severity Reaction Status Date / Time peanut Allergy Anaphylaxis Verified 11/24/21 13:01 morphine AdvReac Dizziness Verified 11/24/21 13:01 Pork/Porcine Containing AdvReac Swelling Verified 11/24/21 13:01 Products Home Medications Medication Instructions Recorded Confirmed Last Taken Type Metoprolol 100 mg PO DAILY 11/21/21 11/21/21 11/20/21 History Active Meds: Active Medications Acetaminophen (Acetaminophen 325 Mg Tab) 650 mg PO Q4H PRN PRN Reason: Pain MILD(1-3)/Fever >100.5/DAVIS Albuterol (Albuterol 2.5 Mg/3 Ml Nebu) 2.5 mg IH Q3HRT PRN PRN Reason: Shortness Of Breath Lipase/Protease/Amylase (Lipase 10,500/Protease 25,000/Amylase 43,750 (Units) Dr Alejo) 1 each FEEDTUBE PRN PRN PRN Reason: For Clogged Feeding Tube Calcitriol (Calcitriol 0.5 Mcg Cap) 0.5 mcg PO QDAY [facility] Last Admin: 11/24/21 09:17 Dose: 0.5 mcg Calcium Acetate (Calcium Acetate 667 Mg Cap) 1,334 mg PO TID [facility] Last Admin: 11/24/21 09:18 Dose: 1,334 mg Doxazosin Mesylate (Doxazosin 1 Mg Tab) 2 mg PO BID [facility] Famotidine (Famotidine 10 Mg Tab) 10 mg PO BID [facility] Last Admin: 11/24/21 09:18 Dose: 10 mg Heparin Sodium (Porcine) (Heparin 5,000 Unit/1 Ml Vial) 5,000 unit SUB-Q Q12HR [facility] Last Admin: 11/24/21 09:18 Dose: 5,000 unit Hydralazine HCl (Hydralazine 20 Mg/1 Ml Inj) 20 mg IV Q8H [facility] Last Admin: 11/24/21 13:30 Dose: 20 mg Labetalol HCl (Labetalol 20 Mg/4 Ml Inj) 20 mg IV Q6HR PRN PRN Reason: SBP>170 Last Admin: 11/23/21 22:40 Dose: 20 mg Metoprolol Tartrate (Metoprolol Tartrate 100 Mg Tab) 100 mg PO BID [facility] Ondansetron HCl (Ondansetron 4 Mg/2 Ml Inj) 4 mg IV Q8H PRN PRN Reason: Nausea And Vomiting Oxycodone/Acetaminophen (Oxycodone /Acetaminophen 5-325mg Tab) 1 tab PO Q6H PRN PRN Reason: Pain, Moderate (4-6) Simple Syrup (Simple Syrup 15 Ml) 15 ml FEEDTUBE PRN PRN PRN Reason: Hypoglycemia Simple Syrup (Simple Syrup 15 Ml) 30 ml FEEDTUBE PRN PRN PRN Reason: Hypoglycemia Sodium Bicarbonate (Sodium Bicarbonate 650 Mg Tab) 1,950 mg PO TID [facility] Last Admin: 11/24/21 09:17 Dose: 1,950 mg Sodium Chloride (Sodium Chloride 0.9% 10 Ml Flush Syringe) 10 ml IV BID [facility] Last Admin: 11/24/21 09:18 Dose: 10 ml Sodium Chloride (Sodium Chloride 0.9% 10 Ml Flush Syringe) 10 ml IV PRN PRN PRN Reason: LINE FLUSH Review of Systems Cardiovascular: palpitations, rapid/irregular heart beat, shortness of breath, no chest pain, no orthopnea, no edema, no syncope, no lightheadedness Physical Examination Vital Signs Temp Pulse Resp BP Pulse Ox 97 F L 112 H 18 174/100 96 11/20/21 21:26 11/20/21 21:26 11/20/21 21:26 11/20/21 21:26 11/20/21 21:26 General appearance: no acute distress HEENT: Positive: PERRL Neck: Positive: neck supple Cardiac: Positive: Regular Rhythm Lungs: Positive: Decreased Breath Sounds Neuro: Positive: Weakness (Generalized lethargy) Abdomen: Positive: Soft Female genitourinary: deferred Skin: Positive: Clear Extremities: Present: Other (Status post bilateral amputation) Results 11/24/21 08:06 11/24/21 08:06 Cardiac Enzymes 11/24/21 Range/Units 08:06 AST 146 H (5-40) units/L CK-MB (CK-2) 2.3 (0.0-4.0) ng/mL Lipids 11/24/21 Range/Units 08:06 Triglycerides 155 H (2-149) mg/dL Cholesterol 132 (50-199) mg/dL HDL Cholesterol 21 L (40-59) mg/dL Cholesterol/HDL Ratio 6.28 % CBC 11/24/21 Range/Units 08:06 WBC 6.6 (4.5-11.0) K/mm3 RBC 3.66 (3.65-5.03) M/mm3 Hgb 10.0 L (10.1-14.3) gm/dl Hct 30.7 (30.3-42.9) % Plt Count 197 (140-440) K/mm3 Lymph # (Auto) 2.2 (1.2-5.4) K/mm3 [place] # (Auto) 0.6 (0.0-0.8) K/mm3 Eos # (Auto) 0.0 (0.0-0.4) K/mm3 Baso # (Auto) 0.0 (0.0-0.1) K/mm3 Comprehensive Metabolic Panel 11/24/21 Range/Units 08:06 Sodium 136 L (137-145) mmol/L Potassium 5.9 H D (3.6-5.0) mmol/L Chloride 101.8 (98-107) mmol/L Carbon Dioxide 15 L (22-30) mmol/L BUN 75 H (7-17) mg/dL Creatinine 10.1 H (0.6-1.2) mg/dL Glucose 105 H (65-100) mg/dL Calcium 6.8 L (8.4-10.2) mg/dL AST 146 H (5-40) units/L ALT 247 H (7-56) units/L Alkaline Phosphatase 90 (35-129) units/L Total Protein 8.2 (6.3-8.2) g/dL Albumin 2.8 L (3.9-5) g/dL EKG interpretations - Telemetry EKG Rhythm: SVT Assessment and Plan - Patient Problems (1) Paroxysmal supraventricular tachycardia Current Visit: Yes Status: Acute Plan to address problem: Patient developed AV node reentry tachycardia, and currently reverted back to sinus rhythm with adenosine. We will place her on metoprolol 100 mg twice daily. We will also add Cardura 2 mg twice daily for management of her sustained hypertension. Otherwise, conservative cardiac management, will follow intermit tently.
[2021-11-24] MEDS: DOXAZOSIN 1 MG TAB PO SCH ×2 (18:03→21:14)
--- NOTE | 2021-11-24 18:03 | Progress Note ---
Assessment and Plan Cultures: None A/P: 61-year-old female past medical history CKD not on HD, hypertension, lupus, PAD, bilateral lower extremity amputations #Facial shingles: Appears to be in V1 of the trigeminal nerve. This is a sensory nerve, not usually associated with retinal necrosis. #MARCUS on CKD: Renally dose medications. Unfortunately she needs acyclovir due to the above. Recs: -Held acyclovir until Monday, restart 5 mg/mg every 24 hours last time. -Once resolved from acute infection, would recommend outpatient shingles vaccine -Outpatient ophthalmology evaluation Discussed at length with son today. He wishes to stop acyclovir pending initiation of hemodialysis. It was difficult to get a word in [facility]. He requested to restart acyclovir on Monday Thank you for the consult, we will continue to follow. Javid Pablo MD [facility] ([facility]) O: [phone] F: [phone] Subjective Date of service: 11/24/21 Interval history: Afebrile, normal white count. Imaging personally reviewed: Chest x-ray: Cardiomegaly Objective - Exam Narrative Exam: Physical Exam: Constitutional: Alert, cooperative. No acute distress Head, Ears, Nose: Normocephalic, atraumatic. External ears, nose normal Eyes: Conjunctivae/corneas clear. No icterus. No ptosis. Neck: Supple, no meningeal signs Oral: dentition fair, no thrush Cardiovascular: S1, S2 normal. Respiratory: Good air entry, clear to auscultation bilaterally GI: Soft, non-tender; bowel sounds normal. No peritoneal signs. Musculoskeletal: No pedal edema, no cyanosis. Skin: Left-sided facial shingles. Negative Archer sign Hem/Lymphatic: No palpable cervical or supraclavicular nodes. No lymphangitis Psych: Mood ok. Affect normal Neurological: Awake, alert, oriented. No gross abnormality - Constitutional Vitals: Vital Signs Temp Pulse Resp BP Pulse Ox 99.0 F 123 H 19 133/94 97 11/24/21 15:58 11/24/21 18:00 11/24/21 10:00 11/24/21 17:19 11/24/21 15:58 Temperature -Last 24 Hours Temperature 99.0 F Temperature 98.7 F Temperature 98.6 F Temperature 98.0 F Temperature 97.9 F - Labs CBC & Chem 7: 11/24/21 08:06 11/24/21 08:06 Labs: Abnormal lab results 11/24/21 11/24/21 11/24/21 Range/Units 08:06 08:06 17:18 Hgb 10.0 L (10.1-14.3) gm/dl MCH 27 L (28-32) pg [place] % (Auto) 8.4 H (0.0-7.3) % Sodium 136 L (137-145) mmol/L Potassium 5.9 H D (3.6-5.0) mmol/L Carbon Dioxide 15 L (22-30) mmol/L BUN 75 H (7-17) mg/dL Creatinine 10.1 H (0.6-1.2) mg/dL Glucose 105 H (65-100) mg/dL POC Glucose 108 H (70-105) mg/dL Calcium 6.8 L (8.4-10.2) mg/dL Phosphorus 4.60 H (2.5-4.5) mg/dL Magnesium 1.60 L (1.7-2.3) mg/dL AST 146 H (5-40) units/L ALT 247 H (7-56) units/L Total Creatine Kinase 219 H (30-135) units/L Troponin T 0.144 H* (0.00-0.029) ng/mL Albumin 2.8 L (3.9-5) g/dL Triglycerides 155 H (2-149) mg/dL HDL Cholesterol 21 L (40-59) mg/dL
[2021-11-25] MEDS: hydrALAZINE 20 MG/1 ML INJ IV SCH ×3 (04:03→20:59)
--- NOTE | 2021-11-25 07:53 | Progress Note ---
Assessment and Plan Assessment and plan: 61-year-old female patient with history of chronic kidney disease follows with Dr. Valdez not on dialysis lupus, hypertension ,peripheral artery disease status post bilateral amputation presented to the emergency room with the complaints of left supraorbital and forehead rash/shingles for the last 4-5 days.Patient is unable to give the details. She reports that she discussed with her primary care physician . And he gave some treatment instructions. Patient was admitted with the following diagnosis/acute medical conditions; Important issues: -Acute kidney injury /hemodialysis initiated today -Speech therapist swallow eval x2 abnormal, recommended PEG placement[GI following] -Herpes zoster, intact vision [lesions healing ]patient's son refused acyclovir therapy, and requested to discontinue[DC'd the medication] ID following -SVT; cardiology following on metoprolol[no Dobbhoff, patient dysphagia] IV metoprolol, cardiology following -Full CODE STATUS -missing persons investigator; son, Higinio Prajapati -Patient needs placement when stable - Assessment and plan: --Dysphagia; failed swallow eval x2 Speech therapy recommended PEG placement Family agreed for the procedure GI is already on the case --SVT[supraventricular tachycardia] 11/24/2021 Patient had supraventricular tachycardia with heart rate ranging 175 Received adenosine 6, 12, 12 with improvement Currently patient's heart rate ranges between 120s to 130s Continue beta-blockers. IV metoprolol as needed Follow echocardiogram Cardiology consulted by the night physician .--Chronic renal insufficiency, stage V Worsening renal function/ Not on dialysis closely , follows with Dr. Valdez monitor renal function, avoid nephrotoxins Nephrology and son discussing about the possibility of hemodialysis Patient refused initially ---Transaminitis; Unknown baseline, closely monitor and trend GI evaluation -Herpes zoster/shingles[left upper supraorbital area and forehead] Pain medications, local care, contact isolation Continue IV acyclovir, transition to oral once all the lesions are crusted ID recommendations noted and appreciated Wound care if needed, without superimposed bacterial infection No visual defect, patient was able to count the fingers and read big print[on admission] Patient needs ophthalmology evaluation upon discharge[no services available] Follow ID evaluation recommendations --Hyperkalemia; resolved Calcium gluconate, Kayexalate Total monitor electrolytes nephrology following, - 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 Stable Continue supportive care --Severe dysarthria; [history of multiple CVAs] speech therapy, swallow eval, tube feeding if no improvement -History of of lupus Continue supportive care Immunocompromised -- History of PAD (peripheral artery disease) Bilateral LE amputations Supportive care, --Bilateral lower extremity amputations; Due to peripheral arterial disease --History of hypertensive urgency; present on admission Resume all home antihypertensives and as needed medications Closely monitor blood pressures --Metabolic acidosis Due to chronic kidney disease stage V Continue IV fluids, nephrology following --Full CODE STATUS -DVT prophylaxis Subcu Heparin 5000 units every 12 hours GI prophylaxis oral Pepcid We will closely monitor the patient and adjust management as needed follow consults evaluation and recommendations Plan of care reviewed with the patient and her nurse Try to contact family for more medical information Advance care planning; +30 minutes Patient's condition discussed with the patient, diagnosis discussed, tests and reports discussed Treatment plan discussed, patient had questions, answered all of them Try to contact family and get more medical information. 11/23/2019; patient is on IV acyclovir, nephrology evaluated Medications of renally dosed, gentle opening of the left eye Patient found for fevers, and read the big print. 11/23; patient confused intermittently Severe dysarthria sometimes unable to understand Consultants and recommendations noted and appreciated 11/24; patient is critically ill with multiple medical problems Discussed in detail with the son the goals of treatment, CODE STATUS The son Higinio Prajapati wants full CODE STATUS. He also wants to talk to all the consultants, informed patient's nurse 11/25/2021; remains tachycardic, uncontrolled blood pressure Initiating dialysis today, speech therapy reevaluation, if abnormal Patient may need PEG placement, GI is already following the patient If patient's mental status does not improve, may check MRI brain to rule out any acute events ID, nephrology, GI evaluation and recommendations noted and appreciated Disposition; discharge when clinically stable Patient may need placement at discharge History Interval history: Patient is scheduled for dialysis catheter placement today to initiate hemodialysis per nephrology Speech therapy evaluated, high risk for aspiration recommended. n.p.o. Could not pass Dobbhoff inspite of multiple attempts Speech therapy is evaluating today. Patient is alert and awake, slightly anxious patient's daughter at the bedside Vital signs reviewed Hospitalist Physical - Constitutional Vitals: Temp Pulse Resp BP Pulse Ox 100.0 F H 120 H 22 179/95 100 11/25/21 03:30 11/25/21 04:36 11/25/21 03:30 11/25/21 04:36 11/25/21 03:38 General appearance: Present: no acute distress, well-nourished, other (Shingles lesions slightly dry, patient is anxious) - EENT Eyes: Present: PERRL, EOM intact - Neck Neck: Present: supple, normal ROM - Respiratory Respiratory effort: normal Respiratory: bilateral: diminished, negative: rales, rhonchi, wheezing - Cardiovascular Rhythm: regular Heart Sounds: Present: S1 & S2 - Extremities Extremities: abnormal (Bilateral lower extremity amputation) - Abdominal General gastrointestinal: soft, non-tender, non-distended, normal bowel sounds - Integumentary Integumentary: Present: clear, warm, rash (Herpes zoster rash left upper eyelid and forehead, lesions improving) - Psychiatric Psychiatric: other (Anxious, confused at times) - Neurologic Neurologic: other (Multiple CVAs in the past with residual dysarthria, right- sided hemiplegia, new onset dysphagia) HEART Score - HEART Score Troponin: Troponin T 0.144 ng/mL (0.00-0.029) H* 11/24/21 08:06 Results - Labs CBC & Chem 7: 11/24/21 08:06 11/25/21 07:03 Labs: Laboratory Last Values WBC 6.6 K/mm3 (4.5-11.0) 11/24/21 08:06 RBC 3.66 M/mm3 (3.65-5.03) 11/24/21 08:06 Hgb 10.0 gm/dl (10.1-14.3) L 11/24/21 08:06 Hct 30.7 % (30.3-42.9) 11/24/21 08:06 MCV 84 fl (79-97) 11/24/21 08:06 MCH 27 pg (28-32) L 11/24/21 08:06 MCHC 33 % (30-34) 11/24/21 08:06 RDW 15.1 % (13.2-15.2) 11/24/21 08:06 Plt Count 197 K/mm3 (140-440) 11/24/21 08:06 Lymph % (Auto) 32.4 % (13.4-35.0) 11/24/21 08:06 Woodruff % (Auto) 8.4 % (0.0-7.3) H 11/24/21 08:06 Eos % (Auto) 0.3 % (0.0-4.3) 11/24/21 08:06 Baso % (Auto) 0.5 % (0.0-1.8) 11/24/21 08:06 Lymph # (Auto) 2.2 K/mm3 (1.2-5.4) 11/24/21 08:06 Woodruff # (Auto) 0.6 K/mm3 (0.0-0.8) 11/24/21 08:06 Eos # (Auto) 0.0 K/mm3 (0.0-0.4) 11/24/21 08:06 Baso # (Auto) 0.0 K/mm3 (0.0-0.1) 11/24/21 08:06 Seg Neutrophils % 58.4 % (40.0-70.0) 11/24/21 08:06 Seg Neutrophils # 3.9 K/mm3 (1.8-7.7) 11/24/21 08:06 PT 17.0 Sec. (12.2-14.9) H 11/20/21 23:52 INR 1.23 (0.87-1.13) H 11/20/21 23:52 Sodium 136 mmol/L (137-145) L 11/24/21 08:06 Potassium 5.9 mmol/L (3.6-5.0) H D 11/24/21 08:06 Chloride 101.8 mmol/L (98-107) 11/24/21 08:06 Carbon Dioxide 15 mmol/L (22-30) L 11/24/21 08:06 Anion Gap 25 mmol/L 11/24/21 08:06 BUN 75 mg/dL (7-17) H 11/24/21 08:06 Creatinine 10.1 mg/dL (0.6-1.2) H 11/24/21 08:06 Estimated GFR 5 ml/min 11/24/21 08:06 BUN/Creatinine Ratio 7 % 11/24/21 08:06 Glucose 105 mg/dL (65-100) H 11/24/21 08:06 POC Glucose 108 mg/dL (70-105) H 11/24/21 17:18 Calcium 6.8 mg/dL (8.4-10.2) L 11/24/21 08:06 Phosphorus 4.60 mg/dL (2.5-4.5) H 11/24/21 08:06 Magnesium 1.60 mg/dL (1.7-2.3) L 11/24/21 08:06 Total Bilirubin 0.40 mg/dL (0.1-1.2) 11/24/21 08:06 AST 146 units/L (5-40) H 11/24/21 08:06 ALT 247 units/L (7-56) H 11/24/21 08:06 Alkaline Phosphatase 90 units/L (35-129) 11/24/21 08:06 Total Creatine Kinase 219 units/L (30-135) H 11/24/21 08:06 CK-MB (CK-2) 2.3 ng/mL (0.0-4.0) 11/24/21 08:06 CK-MB (CK-2) Rel Index 1.0 (0-4) 11/24/21 08:06 Troponin T 0.144 ng/mL (0.00-0.029) H* 11/24/21 08:06 Total Protein 8.2 g/dL (6.3-8.2) 11/24/21 08:06 Albumin 2.8 g/dL (3.9-5) L 11/24/21 08:06 Albumin/Globulin Ratio 0.5 % 11/24/21 08:06 Triglycerides 155 mg/dL (2-149) H 11/24/21 08:06 Cholesterol 132 mg/dL (50-199) 11/24/21 08:06 LDL Cholesterol Direct 61 mg/dL (50-130) 11/24/21 08:06 HDL Cholesterol 21 mg/dL (40-59) L 11/24/21 08:06 Cholesterol/HDL Ratio 6.28 % 11/24/21 08:06 Cherry/IV: Voiding Method Incontinent Active Medications - Current Medications Current Medications: Generic Name Dose Route Start Last Admin Trade Name Freq PRN Reason Stop Dose Admin Acetaminophen 650 mg 11/21/21 05:04 Acetaminophen 325 Mg Tab PO Q4H PRN Pain MILD(1-3)/Fever >100.5/DAVIS Albuterol 2.5 mg 11/21/21 05:04 Albuterol 2.5 Mg/3 Ml Nebu IH Q3HRT PRN Shortness Of Breath Lipase/Protease/Amylase 1 each 11/24/21 14:04 Lipase 10,500/Protease 25,000/Amylase 43,750 (Units) Dr Alejo FEEDTUBE PRN PRN For Clogged Feeding Tube Calcitriol 0.5 mcg 11/22/21 11:00 11/24/21 09:17 Calcitriol 0.5 Mcg Cap PO 0.5 mcg QDAY JIMMY Administration Calcium Acetate 1,334 mg 11/22/21 14:00 11/24/21 20:24 Calcium Acetate 667 Mg Cap PO Not Given TID JIMMY Doxazosin Mesylate 2 mg 11/24/21 16:00 11/24/21 21:14 Doxazosin 1 Mg Tab PO Not Given BID JIMMY Famotidine 10 mg 11/21/21 10:00 11/24/21 21:14 Famotidine 10 Mg Tab PO Not Given BID [facility] Heparin Sodium (Porcine) 5,000 unit 11/21/21 10:00 11/24/21 21:37 Heparin 5,000 Unit/1 Ml Vial SUB-Q 5,000 unit Q12HR JIMMY Administration Hydralazine HCl 20 mg 11/23/21 20:00 11/25/21 04:03 Hydralazine 20 Mg/1 Ml Inj IV Not Given Q8H [facility] Dextrose/Sodium Chloride 1,000 mls @ 100 mls/hr 11/24/21 20:00 D5ns IV DIRECT [facility] Labetalol HCl 20 mg 11/23/21 00:38 11/25/21 04:36 Labetalol 20 Mg/4 Ml Inj IV 20 mg Q6HR PRN Administration SBP>170 Metoprolol Tartrate 100 mg 11/24/21 16:00 11/24/21 21:14 Metoprolol Tartrate 100 Mg Tab PO Not Given BID [facility] Ondansetron HCl 4 mg 11/21/21 05:04 Ondansetron 4 Mg/2 Ml Inj IV Q8H PRN Nausea And Vomiting Oxycodone/Acetaminophen 1 tab 11/21/21 16:22 Oxycodone /Acetaminophen 5-325mg Tab PO Q6H PRN Pain, Moderate (4-6) Simple Syrup 15 ml 11/24/21 14:04 Simple Syrup 15 Ml FEEDTUBE PRN PRN Hypoglycemia Simple Syrup 30 ml 11/24/21 14:04 Simple Syrup 15 Ml FEEDTUBE PRN PRN Hypoglycemia Sodium Bicarbonate 1,950 mg 11/22/21 08:00 11/24/21 20:25 Sodium Bicarbonate 650 Mg Tab PO Not Given TID JIMMY Sodium Chloride 10 ml 11/21/21 10:00 11/24/21 21:37 Sodium Chloride 0.9% 10 Ml Flush Syringe IV 10 ml BID JIMMY Administration Sodium Chloride 10 ml 11/21/21 05:04 Sodium Chloride 0.9% 10 Ml Flush Syringe IV PRN PRN LINE FLUSH Nutrition/Malnutrition Assess - Dietary Evaluation Nutrition/Malnutrition Findings: Nutrition Notes Start: 11/22/21 11:42 Freq: Status: Active Protocol: Document 11/24/21 16:24 AURY (Rec: 11/24/21 16:59 AURY [id number]) Nutrition Notes Initial or Follow up Reassessment Current Diagnosis CKD(stage I-IV),Hypertension, Stroke Other Pertinent Diagnosis Hyperkalemia, Lupus, Zoster, PAD, s/p Bilateral-[place], Metabolic Acidosis, .. Current Diet TF-Nepro w/CARBSTEADY @ 35 ml/ hr (from D 11/24). Labs/Tests 11/24: Na 136, K 5.9, CO2 15, BUN 75, Crea 10.1, Glu 105, Ca 6.8, Phos 4.6, Mg 1.6. Pertinent Medications 11/24: Phoslo, others nutritionally unremarkable. Height 5 ft 5 in Weight 74.843 kg [place] Body Weight (kg) 56.81 BMI 27.4 Weight change and time frame No body weight change reported in 2 days. Weight Status Overweight Subjective/Other Information RD consult for write/manage TF . EX[employer]IVE [employer]ER note on 11/24/21 15:16: Patient was resistant to PO. However, the boluses taken were minimal. Swallow reflex was delayed seconds with a mild audible wet vocal quality indicative of laryngeal penetration. Patient is at risk for aspiration, dehydration and malnutrition based upon these findings. Recommend an alternative method of nutrition. Patient will be reassessed in 24 hours to determine a change in swallowing function or a desire to eat. If findings are unchanged, PEG placement is recommended. Spoke with Dr. uKmar regarding assessment findings. - END OF NOTE. I will prescribe TF to provide Pt with energy/protein needs during LOS while supporting Pt 's CKD V condition. Pt is on Room Air, O2 saturation @ 100%, according to Physical Assessment History notes. Percent of energy/protein needs met: Prescribed TF-Nepro w/ CARBSTEADY @ 35 ml/hr provides for energy/protein needs (1, 530 Kcal/69 g) during LOS, 97% Kcal; 115% AA. Burn Absent Trauma Absent GI Symptoms None Difficulty In Swallowing Food Allergy No Skin Integrity/Comment L-supraorbital & forhead Blisters. Current % PO Other Minimum of two criteria No Fluid Accumulation N/A Reduced Clinical Applications Specialist Strength N/A (non-severe) Protein-Calorie Malnutrition N\A #2 Nutrition Diagnosis Swallowing difficulty Etiology Likely CVA. As Evidenced by Signs and Symptoms EXEC[employer]IVE [employer]ADER note on 11/24/21 15:16: Patient was resistant to PO. However, the boluses taken were minimal. Swallow reflex was delayed seconds with a mild audible wet vocal quality indicative of laryngeal penetration. Patient is at risk for aspiration, dehydration and malnutrition based upon these findings. Recommend an alternative method of nutrition. Patient will be reassessed in 24 hours to determine a change in swallowing function or a desire to eat. If findings are unchanged, PEG placement is recommended. Spoke with Dr. Kumar regarding assessment findings. - END OF NOTE. #1 Nutrition Diagnosis Altered nutrition-related laboratory values Comments: 11/24: Na 136, K 5.9, CO2 15, BUN 75, Crea 10.1, Glu 105, Ca 6.8, Phos 4.6, Mg 1.6. Diagnosis Progress(for reassessment Continues documentation) Is patient on ventilator? No Is Patient Ambulatory and/or Out of Bed No REE-([facility]-confined to bed) [phone] Calculation Used for Recommendations [facility] Additional Notes Protein: 0.6-0.8 g/Kg ABW; 45- 60 g/day. Fluids: 1 ml/Kcal, or as per MD. Nutrition Intervention Change Diet Order: Discontinued. Nutrition Support: Start TF-Nepro w/CARBSTEADY @ 35 ml/hr. Flush: 160 ml water Q 4 hr,or as per MD. Kcal 1,530 Protein (gm) 69 Carbohydrates (gm) 137 Fat (gm) 82 Fluid (mL) 618 Fiber (gm) 11 % RDI: 97% Kcal; 115% AA. Goal #1 Provide at least 75% of energy /protein needs through Enteral Feeding during LOS. Follow-Up By: 11/26/21 Additional Comments Start monitoring TF tolerance and BM.
[2021-11-25 08:11] LABS: Albumin 2.9 g/dL (3.9-5); Calcium 6.7 mg/dL (8.4-10.2)
[2021-11-25] MEDS: HEPARIN 5,000 UNIT/1 ML VIAL SUB-Q SCH ×2 (09:03→20:59)
[2021-11-25] MEDS: CALCIUM ACETATE 667 MG CAP PO SCH ×3 (09:17→20:57)
[2021-11-25] MEDS: DOXAZOSIN 1 MG TAB PO SCH (09:17)
[2021-11-25] MEDS: CALCITRIOL 0.5 MCG CAP PO SCH (09:17)
[2021-11-25] MEDS: SODIUM BICARBONATE 650 MG TAB PO SCH ×3 (09:17→20:57)
[2021-11-25] MEDS: FAMOTIDINE 10 MG TAB PO SCH ×2 (09:17→20:59)
--- NOTE | 2021-11-25 09:48 | Ultrasound Report ---
US abdomen limited INDICATION / CLINICAL INFORMATION: Elevated LFTs. COMPARISON: No relevant prior imaging study available. FINDINGS: PANCREAS: No significant abnormality. ABDOMINAL AORTA: No significant abnormality. IVC: No significant abnormality. LIVER: Liver measures 16.9 cm. The liver demonstrates increased echogenicity. No focal hepatic lesion . PORTAL VEIN: Normal hepatopedal blood flow in the main portal vein. GALLBLADDER: Stones and sludge in the gallbladder. The gallbladder wall is not significantly thickene d. No significant pericholecystic fluid. BILE DUCTS: Common bile duct measures 3 mm. No significant abnormality. RIGHT KIDNEY: No significant abnormality visualized. FREE FLUID: None. ADDITIONAL FINDINGS: None. IMPRESSION: 1. Borderline enlarged liver with diffuse increased hepatic echogenicity, nonspecific but may reflect fatty infiltration or chronic liver disease. 2. Stones and sludge in the gallbladder without evidence of cholecystitis. No significant biliary dil atation. Signer Name: Blake Turner MD Signed: 11/25/2021 9:43 AM Workstation Name: [id number]
[2021-11-25] MEDS ORDERED: SODIUM CHLORIDE 0.9% 100 ML IV PRN (10:00)
--- NOTE | 2021-11-25 10:31 | Progress Note ---
Assessment and Plan Cultures: None A/P: 61-year-old female past medical history CKD not on HD, hypertension, lupus, PAD, bilateral lower extremity amputations #Facial shingles: Appears to be in V1 of the trigeminal nerve. This is a sensory nerve, not usually associated with retinal necrosis. #MARCUS on CKD: Renally dose medications. Unfortunately she needs acyclovir due to the above. She is pending initiation of HD. Recs: -Held acyclovir until Monday, restart 5 mg/mg every 24 hours after initiation of HD, or whenever son is agreeable -Once resolved from acute infection, would recommend outpatient shingles vaccine -Outpatient ophthalmology evaluation Thank you for the consult, we will continue to follow. Javid Pablo MD [facility] ([facility]) O: [phone] F: [phone] Subjective Date of service: 11/25/21 Interval history: Low-grade temperatures but remains afebrile. Normal white count. Objective - Exam Narrative Exam: Physical Exam: Constitutional: Alert, cooperative. No acute distress Head, Ears, Nose: Normocephalic, atraumatic. External ears, nose normal Eyes: Conjunctivae/corneas clear. No icterus. No ptosis. Neck: Supple, no meningeal signs Oral: dentition fair, no thrush Cardiovascular: S1, S2 normal. Respiratory: Good air entry, clear to auscultation bilaterally GI: Soft, non-tender; bowel sounds normal. No peritoneal signs. Musculoskeletal: No pedal edema, no cyanosis. Skin: Left-sided facial shingles. Negative Archer sign Hem/Lymphatic: No palpable cervical or supraclavicular nodes. No lymphangitis Psych: Mood ok. Affect normal Neurological: Awake, alert, oriented. No gross abnormality - Constitutional Vitals: Vital Signs Temp Pulse Resp BP Pulse Ox 98.8 F 181 H 24 148/92 100 11/25/21 08:46 11/25/21 08:56 11/25/21 08:46 11/25/21 08:56 11/25/21 08:47 Temperature -Last 24 Hours Temperature 98.8 F Temperature 100.0 F Temperature 99.7 F Temperature 100.2 F Temperature 99.0 F - Labs CBC & Chem 7: 11/24/21 08:06 11/25/21 07:03 Labs: Abnormal lab results 11/24/21 11/25/21 Range/Units 17:18 07:03 Potassium 5.3 H (3.6-5.0) mmol/L Carbon Dioxide 17 L (22-30) mmol/L BUN 82 H (7-17) mg/dL Creatinine 10.9 H (0.6-1.2) mg/dL POC Glucose 108 H (70-105) mg/dL Calcium 6.7 L (8.4-10.2) mg/dL AST 82 H (5-40) units/L ALT 181 H (7-56) units/L Albumin 2.9 L (3.9-5) g/dL
[2021-11-25] MEDS ORDERED: HEPARIN/NS 5000 UNIT/500ML 500 ML IR ONE (11:49)
[2021-11-25] MEDS ORDERED: ceFAZolin/Water 2 GM/20 ML 0 GM/0 ML SYRINGE IV ONE (11:49)
[2021-11-25] MEDS: HEPARIN 10,000 UNITS/10 ML VIAL ONE ×2 (12:00→12:44)
[2021-11-25] MEDS: fentaNYL 100 MCG/2 ML INJ ONE ×2 (12:00→12:35)
[2021-11-25] MEDS: LIDOCAINE (1%) 10 MG/1 ML VIAL 20 ML MDV ONE ×2 (12:01→12:36)
[2021-11-25 12:05] LABS: Hepatitis B Surface Antigen Non-Reactive (Negative); Hepatitis C Virus Antibody Non-Reactive (NonReactive)
[2021-11-25] MEDS ORDERED: SODIUM CHLORIDE 0.9% 250ML 250 ML ONE (12:23)
--- NOTE | 2021-11-25 12:24 | Progress Note ---
Assessment and Plan - Patient Problems (1) Paroxysmal supraventricular tachycardia Current Visit: Yes Status: Acute Plan to address problem: Patient developed recurrent narrow complex tachycardia after her metoprolol was discontinued. I will immediately resume metoprolol at a scheduled IV dose of 5 mg every 6 hours. Subjective Date of service: 11/25/21 Principal diagnosis: End-stage renal failure, acute shingles Interval history: Patient is admitted with end-stage renal failure, acute shingles and sepsis. Cardiology consultation was requested for the development of paroxysmal supraventricular tachycardia. Echocardiogram shows well-preserved left ventricular systolic ejection fraction 50 to 55%. Yesterday, we recommended an increase in her metoprolol 200 twice daily for PSVT. Unknown to cardiology service, the metoprolol was discontinued, and last night the patient developed recurrent narrow complex tachycardia some of which appear to be AV node reentry, and some of which appeared to be atrial tachycardia. I spoke to the nurse today about the metoprolol and she tells me it was discontinued because patient is no longer able to take oral medications. Objective Vital Signs Temp Pulse Pulse Resp BP BP Pulse Ox 11/25/21 08:56 181 H 148/92 11/25/21 08:47 127 H 100 11/25/21 08:46 98.8 F 24 148/92 11/25/21 08:00 100.1 F H 135 H 132 H 20 148/92 96 11/25/21 07:35 186 H 11/25/21 04:36 120 H 179/95 11/25/21 04:03 129 H 11/25/21 03:38 129 H 100 11/25/21 03:30 100.0 F H 22 179/95 11/25/21 00:46 99.7 F H 124 H 20 100 11/25/21 00:36 188/110 11/24/21 22:00 95 11/24/21 21:37 130 H 189/110 11/24/21 21:30 130 H 11/24/21 21:27 130 H 95 H 11/24/21 21:22 100.2 F H 22 189/110 11/24/21 18:00 123 H 11/24/21 17:19 133/94 11/24/21 16:02 130 H 188/104 11/24/21 15:58 99.0 F 119 H 180/104 97 11/24/21 13:30 130 H 11/24/21 12:50 127 H 212/124 100 - Physical Examination General: Cachectic HEENT: Positive: Other (Acute shingles rash overlying left upper forehead and periorbital area) Neck: Positive: neck supple Cardiac: Positive: Regular Rhythm Lungs: Positive: Decreased Breath Sounds Neuro: Positive: Weakness (Generalized lethargy) Abdomen: Positive: Soft Skin: Positive: Clear Extremities: Present: Other (Status post bilateral amputation) - Labs and Meds Cardiac Enzymes 11/25/21 Range/Units 07:03 AST 82 H (5-40) units/L Comprehensive Metabolic Panel 11/25/21 Range/Units 07:03 Sodium 143 D (137-145) mmol/L Potassium 5.3 H (3.6-5.0) mmol/L Chloride 106.7 (98-107) mmol/L Carbon Dioxide 17 L (22-30) mmol/L BUN 82 H (7-17) mg/dL Creatinine 10.9 H (0.6-1.2) mg/dL Glucose 86 (65-100) mg/dL Calcium 6.7 L (8.4-10.2) mg/dL AST 82 H (5-40) units/L ALT 181 H (7-56) units/L Alkaline Phosphatase 82 (35-129) units/L Total Protein 8.1 (6.3-8.2) g/dL Albumin 2.9 L (3.9-5) g/dL
[2021-11-25] MEDS ORDERED: MIDAZOLAM 2 MG/2 ML INJ ONE (12:36)
--- NOTE | 2021-11-25 12:53 | Operative Report ---
Operative Report Operative Report: Exam: Ultrasound and fluoroscopic guided placement of tunneled hemodialysis catheter Clinical indication: Patient with a history of chronic renal disease who has progressed to requiring the initiation of dialysis. Date: 11/25/2021 Procedure: Following an explanation of the risk, benefits and alternatives; irwin rangel informed consent was obtained from the patient's daughter secondary to patient's decreased mental status. Patient also has a history of hypertension and SVTs. The patient was brought to the angiographic suite and placed in supine position on the examination table. Initial ultrasound evaluation of the right neck demonstrated a patent right internal jugular vein. The patient's right neck and chest wall were prepped and draped in the usual sterile fashion. 2% lidocaine was used for anesthesia. Under ultrasound guidance, a 7 cm 18-gauge needle was advanced into the right internal jugular vein. A 0.035 guidewire was advanced into the IVC under fluoroscopy to document intravenous positioning and for anchoring. The needle was removed. An appropriate catheter exit site was chosen along the right lateral chest wall. 2% lidocaine was used for anesthesia at the catheter exit site and along the tunnel tract. A Bard 23 cm glidepath tunneled hemodialysis catheter was then tunneled antegrade from the catheter exit site to the venotomy site. Following serial dilation over the guidewire under fluoroscopy, a 16 Maori peel-away sheath was advanced over the guidewire under fluoroscopy to the proximal right atrium. The trocar and guidewire were removed. The catheter was then inserted to the peel-away sheath and the peel-away sheath removed. The catheter tip was positioned in the proximal right atrium. Both ports flushed and aspirated easily and were then locked with appropriate volumes of heparin. The venotomy was approximated using 4-0 Vicryl suture and Dermabond. 2-0 Ethilon suture was used to approximate the catheter exit site and to anchor the catheter. Dermabond and sterile dressings were then applied. The patient tolerated the procedure well. There were no immediate postprocedure complications. Conscious sedation was performed under the guidance of radiologic nursing. Continuous cardiopulmonary monitoring was utilized which demonstrated the patient remained in SVTs throughout the duration of the case. Impression: Ultrasound and fluoroscopic guided placement of 23 cm glidepath tunneled hemodialysis catheter via the right internal jugular vein.
[2021-11-25] MEDS ORDERED: dilTIAZem 60 MG TAB PO SCH (13:00)
--- NOTE | 2021-11-25 13:41 | Electrocardiograph Report ---
[facility] Test Date: 2021-11-24 Test Time: 00:49:03 Pat Name: TORI SMITH Department: Room: A458 1 Gender: F Legal Clerk: HF : 1960 Requested By: MONCHO LAI Order Number: [id number] Reading MD: Fredrick Nick Measurements Intervals [place] Rate: 177 P: -30 AL: 135 QRS: 2 QRSD: 86 T: 32 QT: 289 QTc: 496 Interpretive Statements Supraventricular tachycardia Nonspecific ST abnormality Compared to ECG 11/21/2021 15:57:32 SVT has replaced sinus rhythm PVCs no longer evident Electronically Signed On 11-25-2021 13:40:50 EDT by Fredrick Nick
--- NOTE | 2021-11-25 15:11 | Progress Note ---
Assessment and Plan Impression: * Stage V CKD --SCr 4.8mg/dL in Apr 2021 * Herpes zoster * Hyperkalemia * Metabolic acidosis * Secondary Hyperparathyroidism * Azotemia * Transaminitis * Hypertension Plan: * Patient with progression of chronic kidney disease. Patient well known to myself for CKD, has been refusing dialysis in generally but has stated "would do it" if needed. * Spoke with son at length during admission- given likely uremia, hyperkalemia, acidosis do feel that patient will benefit from initiation of dialysis at this time. Son agrees and would like to move forward with this as well, as patient herself is unable to make decisions (but as noted has stated would want dialysis in worst case scenario) * Appreciate IR, CVC placed today, start HD today per new start protocol (daily x3 days) to avoid dialysis disequilibrium * Continue Na bicarbonate for now, can discontinue if tolerating HD * Kayexlyate for hyperkalemia prn * continue home calcitriol, calcium acetate * Antiviral per primary team, ID * Dose medications for renal function * Avoid potential nephrotoxins * AM labs Subjective Date of service: 11/25/21 Principal diagnosis: End-stage renal failure, acute shingles Interval history: Remains altered mentation this AM, getting cleaned by nursing Objective - Exam Narrative Exam: General appearance: confused, ill appearing EENT: other (vesicular rash involving left eye, forehead, mormon; crusting lesions) Respiratory: Clear to Ascultation Heart: regular, S1S2 Gastrointestinal: Present: normal Integumentary: warm and dry Musculoskeletal: Present: other (bilateral LE amputation) - Vital Signs Vital signs: Vital Signs - 12hr 11/25/21 11/25/21 11/25/21 03:30 03:38 04:03 Temperature 100.0 F H Pulse Rate 129 H 129 H Pulse Rate [ From Monitor] Respiratory 22 Rate Blood Pressure 179/95 Blood Pressure [Right] O2 Sat by Pulse 100 Oximetry O2 Sat by Pulse Oximetry [ Anterior Bilateral Throughout] 11/25/21 11/25/21 11/25/21 04:36 07:35 08:00 Temperature 100.1 F H Pulse Rate 120 H 186 H 135 H Pulse Rate [ 132 H From Monitor] Respiratory 20 Rate Blood Pressure 179/95 Blood Pressure 148/92 [Right] O2 Sat by Pulse 96 Oximetry O2 Sat by Pulse Oximetry [ Anterior Bilateral Throughout] 11/25/21 11/25/21 11/25/21 08:46 08:47 08:56 Temperature 98.8 F Pulse Rate 127 H 181 H Pulse Rate [ From Monitor] Respiratory 24 Rate Blood Pressure 148/92 148/92 Blood Pressure [Right] O2 Sat by Pulse 100 Oximetry O2 Sat by Pulse Oximetry [ Anterior Bilateral Throughout] 11/25/21 11/25/21 11/25/21 12:01 13:00 13:20 Temperature 98.5 F 97.9 F Pulse Rate 128 H 128 H Pulse Rate [ From Monitor] Respiratory 18 20 Rate Blood Pressure 182/117 165/82 165/82 Blood Pressure [Right] O2 Sat by Pulse Oximetry O2 Sat by Pulse 99 Oximetry [ Anterior Bilateral Throughout] 11/25/21 11/25/21 11/25/21 13:30 13:45 14:00 Temperature Pulse Rate 119 H 99 H 98 H Pulse Rate [ From Monitor] Respiratory Rate Blood Pressure 166/87 160/84 148/74 Blood Pressure [Right] O2 Sat by Pulse Oximetry O2 Sat by Pulse Oximetry [ Anterior Bilateral Throughout] 11/25/21 11/25/21 11/25/21 14:15 14:30 14:45 Temperature Pulse Rate 98 H 94 H 97 H Pulse Rate [ From Monitor] Respiratory Rate Blood Pressure 130/75 164/87 156/85 Blood Pressure [Right] O2 Sat by Pulse Oximetry O2 Sat by Pulse Oximetry [ Anterior Bilateral Throughout] - Lab 11/24/21 08:06 11/25/21 07:03 Most recent lab results Calcium 6.7 mg/dL (8.4-10.2) L 11/25/21 07:03 Phosphorus 4.60 mg/dL (2.5-4.5) H 11/24/21 08:06 Magnesium 1.60 mg/dL (1.7-2.3) L 11/24/21 08:06 Medications & Allergies - Medications Allergies/Adverse Reactions: Allergies peanut Allergy (Verified 11/24/21 13:01) Anaphylaxis morphine Adverse Reaction (Verified 11/24/21 13:01) Dizziness Pork/Porcine Containing Products Adverse Reaction (Verified 11/24/21 13:01) Swelling Home Medications: Home Medications Medication Instructions Recorded Confirmed Last Taken Type Metoprolol 100 mg PO DAILY 11/21/21 11/21/21 11/20/21 History Active Medications: Generic Name Dose Route Start Last Admin Trade Name Freq PRN Reason Stop Dose Admin Acetaminophen 650 mg 11/21/21 05:04 Acetaminophen 325 Mg Tab PO Q4H PRN Pain MILD(1-3)/Fever >100.5/DAVIS Albuterol 2.5 mg 11/21/21 05:04 Albuterol 2.5 Mg/3 Ml Nebu IH Q3HRT PRN Shortness Of Breath Lipase/Protease/Amylase 1 each 11/24/21 14:04 Lipase 10,500/Protease 25,000/Amylase 43,750 (Units) Dr Alejo FEEDTUBE PRN PRN For Clogged Feeding Tube Calcitriol 0.5 mcg 11/22/21 11:00 11/25/21 09:17 Calcitriol 0.5 Mcg Cap PO Not Given QDAY JIMMY Calcium Acetate 1,334 mg 11/22/21 14:00 11/25/21 09:17 Calcium Acetate 667 Mg Cap PO Not Given TID JIMMY Famotidine 10 mg 11/21/21 10:00 11/25/21 09:17 Famotidine 10 Mg Tab PO Not Given BID JIMMY Heparin Sodium (Porcine) 5,000 unit 11/21/21 10:00 11/25/21 09:03 Heparin 5,000 Unit/1 Ml Vial SUB-Q 5,000 unit Q12HR JIMMY Administration Hydralazine HCl 20 mg 11/23/21 20:00 11/25/21 04:03 Hydralazine 20 Mg/1 Ml Inj IV Not Given Q8H JIMMY Dextrose/Sodium Chloride 1,000 mls @ 100 mls/hr 11/24/21 20:00 D5ns IV DIRECT JIMMY Sodium Chloride 100 mls @ 999 mls/hr 11/25/21 10:00 Nacl 0.9% IV SHIVA PRN Hypotension Labetalol HCl 20 mg 11/23/21 00:38 11/25/21 04:36 Labetalol 20 Mg/4 Ml Inj IV 20 mg Q6HR PRN Administration SBP>170 Metoprolol Tartrate 5 mg 11/25/21 13:00 Metoprolol Tartrate 5 Mg/5 Ml Inj IV Q6H JIMMY Ondansetron HCl 4 mg 11/21/21 05:04 Ondansetron 4 Mg/2 Ml Inj IV Q8H PRN Nausea And Vomiting Oxycodone/Acetaminophen 1 tab 11/21/21 16:22 Oxycodone /Acetaminophen 5-325mg Tab PO Q6H PRN Pain, Moderate (4-6) Simple Syrup 15 ml 11/24/21 14:04 Simple Syrup 15 Ml FEEDTUBE PRN PRN Hypoglycemia Simple Syrup 30 ml 11/24/21 14:04 Simple Syrup 15 Ml FEEDTUBE PRN PRN Hypoglycemia Sodium Bicarbonate 1,950 mg 11/22/21 08:00 11/25/21 09:17 Sodium Bicarbonate 650 Mg Tab PO Not Given TID JIMMY Sodium Chloride 10 ml 11/21/21 10:00 11/25/21 09:03 Sodium Chloride 0.9% 10 Ml Flush Syringe IV 10 ml BID JIMMY Administration Sodium Chloride 10 ml 11/21/21 05:04 Sodium Chloride 0.9% 10 Ml Flush Syringe IV PRN PRN LINE FLUSH
[2021-11-25] MEDS: METOPROLOL TARTRATE 5 MG/5 ML INJ IV SCH ×2 (15:47→18:39)
--- NOTE | 2021-11-25 16:14 | Gastroenterology Progress Note ---
Assessment and Plan - Patient Problems (1) Transaminitis Current Visit: Yes Status: Acute Plan to address problem: - The patient has good synthetic function (INR), a normal AP/bili, and normal platelets. There is no sign of ESLD/cirrhosis, and no all current medications are acceptable. - The LFTs were elevated on admit, but she was also hypotensive (?dehydrated) at home, so there may be an acute ischemic injury component. - She does have lupus, but would not start any immunosuppressive medications at present given her severe shingles. - Continue current supportive care with BP control, adequate hydration, nutritional therapy, and avoid excess hepatotoxic meds; I feel the benefits of acyclovir outweight the risks at present (and not usually hepatotoxic). - Hepatitis serologies were negative, and her RUQ US showed fatty liver and biliary sludge only. - Since the LFTs are improving, and she is stable, we will sign off; please call if needed. Subjective Date of service: 11/25/21 Principal diagnosis: Abnormal LFTs Interval history: The patient will be getting an HD access catheter today as her CKD is progressing. She has been stable otherwise. Objective - Constitutional Vitals: Temp Pulse Resp BP Pulse Ox 97.9 F 117 H 20 179/84 99 11/25/21 15:51 11/25/21 15:51 11/25/21 15:51 11/25/21 15:51 11/25/21 15:51 General appearance: no acute distress - Respiratory Respiratory effort: normal Respiratory: bilateral: CTA - Cardiovascular Rhythm: regular Heart Sounds: Present: S1 & S2 - Gastrointestinal General gastrointestinal: Present: soft, non-tender, non-distended - Labs CBC & Chem 7: 11/24/21 08:06 11/25/21 07:03 Labs: Laboratory Results - last 24 hr 11/24/21 11/25/21 11/25/21 17:18 07:03 07:03 Sodium 143 D Potassium 5.3 H Chloride 106.7 Carbon Dioxide 17 L Anion Gap 25 BUN 82 H Creatinine 10.9 H Estimated GFR 4 BUN/Creatinine Ratio 8 Glucose 86 POC Glucose 108 H Calcium 6.7 L Total Bilirubin 0.40 AST 82 H ALT 181 H Alkaline Phosphatase 82 Total Protein 8.1 Albumin 2.9 L Albumin/Globulin Ratio 0.6 Hepatitis A IgM Ab Non-reactive Hep Bs Antigen Non-reactive Hep B Core IgM Ab Non-reactive Hepatitis C Antibody Non-reactive
[2021-11-25] MEDS ORDERED: METOPROLOL TARTRATE 5 MG/5 ML INJ IV ONE (23:25)
[2021-11-26] MEDS: hydrALAZINE 20 MG/1 ML INJ IV SCH ×3 (04:07→20:09)
[2021-11-26] MEDS: METOPROLOL TARTRATE 5 MG/5 ML INJ IV SCH ×4 (04:08→20:16)
[2021-11-26] MEDS: SODIUM BICARBONATE 650 MG TAB PO SCH ×3 (08:10→20:07)
[2021-11-26] MEDS: CALCIUM ACETATE 667 MG CAP PO SCH ×3 (08:10→20:07)
--- NOTE | 2021-11-26 08:40 | Progress Note ---
Assessment and Plan Assessment and plan: 61-year-old with a history of chronic kidney disease, lupus, hypertension ,peripheral artery disease status post bilateral amputation presented to the emergency room with the complaints of left supraorbital and forehead rash/shingles for the last 4-5 days. Assessment and plan: #Dysphagia -Speech therapy recommended PEG placement -General surgery consulted, plan for placement Monday -several attempts made to place dobhoff, will try again today if unable to place will start PPN #Supraventricular tachycardia -new onset this hospitalization -s/p adenosine -PO metoprolol held due to dysphagia, continue PRN IV metoprolol -Cardiology following, assistance appreciated #Acute kidney injury on chronic kidney disease stage V now requiring hemodialysis -Permacath placement 11/25 -HD yesterday, will receive 2 more treatments daily -monitor renal function, avoid nephrotoxins -continue calcitrol -Nephrology following, assistance appreciated #Transaminitis -improving -GI signed off -likely secondary to hypotension #Herpes zoster/shingles[left upper supraorbital area and forehead] -continue Pain medications, local care, contact isolation -continue IV acyclovir, transition to oral once all the lesions are crusted -ID recommendations noted and appreciated -Patient needs ophthalmology evaluation upon discharge (no inpatient services available); patient vision not compromised at this time #Hyperkalemia; resolved -s/p Calcium gluconate, Kayexalate -will be addressed with dialysis #history of recurrent CVAs x5-6 #Severe dysarthria -residual right-sided hemiparesis -stable #History of of lupus -Continue supportive care #History of PAD (peripheral artery disease) #Bilateral lower extremity amputations -Bilateral LE amputations #Hypertension -BP medications held due to dysphagia -will resume with placement of dobhoff/PEG -PRN medications for now #Metabolic acidosis -Due to chronic kidney disease stage V -continue bicarbonate #Disposition -discharge to SNF/NH when clinically stable -Case management aware History Interval history: No acute events overnight. Patient n.p.o. due to failed attempts at Dobbhoff placement. General surgery consulted for PEG tube placement. Patient has no complaints at this time. Hospitalist Physical - Physical exam Narrative exam: GENERAL: Well-developed well-nourished. In no acute distress. HEENT: Left orbit and upper part of face with scabbing healing zoster rash. NECK: Supple. CHEST/LUNGS: CTAB on room air HEART/CARDIOVASCULAR: Tachycardic. No murmur, rubs or gallops appreciated. ABDOMEN: +BS. NT/ND. NEURO: Dysarthria. EXTREMITIES: Right upper extremity contracted. Left BKA, right AKA. No cyanosis, clubbing or edema. PSYCH: Cooperative. - Constitutional Vitals: Temp Pulse Resp BP Pulse Ox 98.3 F 114 H 22 150/93 98 11/26/21 07:19 11/26/21 07:19 11/26/21 07:19 11/26/21 07:19 11/26/21 07:19 General appearance: Present: no acute distress, well-nourished, other (Shingles lesions slightly dry, patient is anxious) HEART Score - HEART Score Troponin: Troponin T 0.117 ng/mL (0.00-0.029) H* 11/25/21 07:56 Results - Labs CBC & Chem 7: 11/24/21 08:06 11/25/21 07:03 Labs: Laboratory Last Values WBC 6.6 K/mm3 (4.5-11.0) 11/24/21 08:06 RBC 3.66 M/mm3 (3.65-5.03) 11/24/21 08:06 Hgb 10.0 gm/dl (10.1-14.3) L 11/24/21 08:06 Hct 30.7 % (30.3-42.9) 11/24/21 08:06 MCV 84 fl (79-97) 11/24/21 08:06 MCH 27 pg (28-32) L 11/24/21 08:06 MCHC 33 % (30-34) 11/24/21 08:06 RDW 15.1 % (13.2-15.2) 11/24/21 08:06 Plt Count 197 K/mm3 (140-440) 11/24/21 08:06 Lymph % (Auto) 32.4 % (13.4-35.0) 11/24/21 08:06 [place] % (Auto) 8.4 % (0.0-7.3) H 11/24/21 08:06 Eos % (Auto) 0.3 % (0.0-4.3) 11/24/21 08:06 Baso % (Auto) 0.5 % (0.0-1.8) 11/24/21 08:06 Lymph # (Auto) 2.2 K/mm3 (1.2-5.4) 11/24/21 08:06 [place] # (Auto) 0.6 K/mm3 (0.0-0.8) 11/24/21 08:06 Eos # (Auto) 0.0 K/mm3 (0.0-0.4) 11/24/21 08:06 Baso # (Auto) 0.0 K/mm3 (0.0-0.1) 11/24/21 08:06 Seg Neutrophils % 58.4 % (40.0-70.0) 11/24/21 08:06 Seg Neutrophils # 3.9 K/mm3 (1.8-7.7) 11/24/21 08:06 PT 17.0 Sec. (12.2-14.9) H 11/20/21 23:52 INR 1.23 (0.87-1.13) H 11/20/21 23:52 Sodium 143 mmol/L (137-145) D 11/25/21 07:03 Potassium 5.3 mmol/L (3.6-5.0) H 11/25/21 07:03 Chloride 106.7 mmol/L (98-107) 11/25/21 07:03 Carbon Dioxide 17 mmol/L (22-30) L 11/25/21 07:03 Anion Gap 25 mmol/L 11/25/21 07:03 BUN 82 mg/dL (7-17) H 11/25/21 07:03 Creatinine 10.9 mg/dL (0.6-1.2) H 11/25/21 07:03 Estimated GFR 4 ml/min 11/25/21 07:03 BUN/Creatinine Ratio 8 % 11/25/21 07:03 Glucose 86 mg/dL (65-100) 11/25/21 07:03 POC Glucose 108 mg/dL (70-105) H 11/24/21 17:18 Calcium 6.7 mg/dL (8.4-10.2) L 11/25/21 07:03 Phosphorus 4.60 mg/dL (2.5-4.5) H 11/24/21 08:06 Magnesium 1.60 mg/dL (1.7-2.3) L 11/24/21 08:06 Total Bilirubin 0.40 mg/dL (0.1-1.2) 11/25/21 07:03 AST 82 units/L (5-40) H 11/25/21 07:03 ALT 181 units/L (7-56) H 11/25/21 07:03 Alkaline Phosphatase 82 units/L (35-129) 11/25/21 07:03 Total Creatine Kinase 176 units/L (30-135) H 11/25/21 07:56 CK-MB (CK-2) 2.0 ng/mL (0.0-4.0) 11/25/21 07:56 CK-MB (CK-2) Rel Index 1.1 (0-4) 11/25/21 07:56 Troponin T 0.117 ng/mL (0.00-0.029) H* 11/25/21 07:56 Total Protein 8.1 g/dL (6.3-8.2) 11/25/21 07:03 Albumin 2.9 g/dL (3.9-5) L 11/25/21 07:03 Albumin/Globulin Ratio 0.6 % 11/25/21 07:03 Triglycerides 155 mg/dL (2-149) H 11/24/21 08:06 Cholesterol 132 mg/dL (50-199) 11/24/21 08:06 LDL Cholesterol Direct 61 mg/dL (50-130) 11/24/21 08:06 HDL Cholesterol 21 mg/dL (40-59) L 11/24/21 08:06 Cholesterol/HDL Ratio 6.28 % 11/24/21 08:06 Hepatitis A IgM Ab Non-reactive (NonReactive) 11/25/21 07:03 Hep Bs Antigen Non-reactive (Negative) 11/25/21 07:03 Hep B Core IgM Ab Non-reactive (NonReactive) 11/25/21 07:03 Hepatitis C Antibody Non-reactive (NonReactive) 11/25/21 07:03 Cherry/IV: Voiding Method Incontinent Active Medications - Current Medications Current Medications: Generic Name Dose Route Start Last Admin Trade Name Freq PRN Reason Stop Dose Admin Acetaminophen 650 mg 11/21/21 05:04 Acetaminophen 325 Mg Tab PO Q4H PRN Pain MILD(1-3)/Fever >100.5/DAVIS Albuterol 2.5 mg 11/21/21 05:04 Albuterol 2.5 Mg/3 Ml Nebu IH Q3HRT PRN Shortness Of Breath Lipase/Protease/Amylase 1 each 11/24/21 14:04 Lipase 10,500/Protease 25,000/Amylase 43,750 (Units) Dr Alejo FEEDTUBE PRN PRN For Clogged Feeding Tube Calcitriol 0.5 mcg 11/22/21 11:00 11/25/21 09:17 Calcitriol 0.5 Mcg Cap PO Not Given QDAY JIMMY Calcium Acetate 1,334 mg 11/22/21 14:00 11/26/21 08:10 Calcium Acetate 667 Mg Cap PO Not Given TID JIMMY Famotidine 10 mg 11/26/21 10:00 Famotidine 20 Mg/2 Ml Inj IV BID JIMMY Heparin Sodium (Porcine) 5,000 unit 11/21/21 10:00 11/25/21 20:59 Heparin 5,000 Unit/1 Ml Vial SUB-Q 5,000 unit Q12HR JIMMY Administration Hydralazine HCl 20 mg 11/23/21 20:00 11/26/21 04:07 Hydralazine 20 Mg/1 Ml Inj IV Not Given Q8H JIMMY Dextrose/Sodium Chloride 1,000 mls @ 100 mls/hr 11/24/21 20:00 D5ns IV DIRECT JIMMY Sodium Chloride 100 mls @ 999 mls/hr 11/25/21 10:00 Nacl 0.9% IV SHIVA PRN Hypotension Labetalol HCl 20 mg 11/23/21 00:38 11/25/21 18:44 Labetalol 20 Mg/4 Ml Inj IV 20 mg Q6HR PRN Administration SBP>170 Metoprolol Tartrate 5 mg 11/25/21 13:00 11/26/21 06:03 Metoprolol Tartrate 5 Mg/5 Ml Inj IV 5 mg Q6H JIMMY Administration Ondansetron HCl 4 mg 11/21/21 05:04 Ondansetron 4 Mg/2 Ml Inj IV Q8H PRN Nausea And Vomiting Oxycodone/Acetaminophen 1 tab 11/21/21 16:22 Oxycodone /Acetaminophen 5-325mg Tab PO Q6H PRN Pain, Moderate (4-6) Simple Syrup 15 ml 11/24/21 14:04 Simple Syrup 15 Ml FEEDTUBE PRN PRN Hypoglycemia Simple Syrup 30 ml 11/24/21 14:04 Simple Syrup 15 Ml FEEDTUBE PRN PRN Hypoglycemia Sodium Bicarbonate 1,950 mg 11/22/21 08:00 11/26/21 08:10 Sodium Bicarbonate 650 Mg Tab PO Not Given TID JIMMY Sodium Chloride 10 ml 11/21/21 10:00 11/25/21 20:59 Sodium Chloride 0.9% 10 Ml Flush Syringe IV 10 ml BID JIMMY Administration Sodium Chloride 10 ml 11/21/21 05:04 Sodium Chloride 0.9% 10 Ml Flush Syringe IV PRN PRN LINE FLUSH Nutrition/Malnutrition Assess - Dietary Evaluation Nutrition/Malnutrition Findings: Nutrition Notes Start: 11/22/21 11:42 Freq: Status: Active Protocol: Document 11/24/21 16:24 AUYR (Rec: 11/24/21 16:59 AURY [id number]) Nutrition Notes Initial or Follow up Reassessment Current Diagnosis CKD(stage I-IV),Hypertension, Stroke Other Pertinent Diagnosis Hyperkalemia, Lupus, Zoster, PAD, s/p Bilateral-[place], Metabolic Acidosis, .. Current Diet TF-Nepro w/CARBSTEADY @ 35 ml/ hr (from D 11/24). Labs/Tests 11/24: Na 136, K 5.9, CO2 15, BUN 75, Crea 10.1, Glu 105, Ca 6.8, Phos 4.6, Mg 1.6. Pertinent Medications 11/24: Phoslo, others nutritionally unremarkable. Height 5 ft 5 in Weight 74.843 kg [place] Body Weight (kg) 56.81 BMI 27.4 Weight change and time frame No body weight change reported in 2 days. Weight Status Overweight Subjective/Other Information RD consult for write/manage TF . FORGESMITH note on 11/24/21 15:16: Patient was resistant to PO. However, the boluses taken were minimal. Swallow reflex was delayed seconds with a mild audible wet vocal quality indicative of laryngeal penetration. Patient is at risk for aspiration, dehydration and malnutrition based upon these findings. Recommend an alternative method of nutrition. Patient will be reassessed in 24 hours to determine a change in swallowing function or a desire to eat. If findings are unchanged, PEG placement is recommended. Spoke with Dr. Kumar regarding assessment findings. - END OF NOTE. I will prescribe TF to provide Pt with energy/protein needs during LOS while supporting Pt 's CKD V condition. Pt is on Room Air, O2 saturation @ 100%, according to Physical Assessment History notes. Percent of energy/protein needs met: Prescribed TF-Nepro w/ CARBSTEADY @ 35 ml/hr provides for energy/protein needs (1, 530 Kcal/69 g) during LOS, 97% Kcal; 115% AA. Burn Absent Trauma Absent GI Symptoms None Difficulty In Swallowing Food Allergy No Skin Integrity/Comment L-supraorbital & forhead Blisters. 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 As Evidenced by Signs and Symptoms FORGESMITH note on 11/24/21 15:16: Patient was resistant to PO. However, the boluses taken were minimal. Swallow reflex was delayed seconds with a mild audible wet vocal quality indicative of laryngeal penetration. Patient is at risk for aspiration, dehydration and malnutrition based upon these findings. Recommend an alternative method of nutrition. Patient will be reassessed in 24 hours to determine a change in swallowing function or a desire to eat. If findings are unchanged, PEG placement is recommended. Spoke with Dr. Kumar regarding assessment findings. - END OF NOTE. #1 Nutrition Diagnosis Altered nutrition-related laboratory values Comments: 11/24: Na 136, K 5.9, CO2 15, BUN 75, Crea 10.1, Glu 105, Ca 6.8, Phos 4.6, Mg 1.6. Diagnosis Progress(for reassessment Continues documentation) Is patient on ventilator? No Is Patient Ambulatory and/or Out of Bed No REE-([facility]-confined to bed) [phone] Calculation Used for Recommendations [facility] Additional Notes Protein: 0.6-0.8 g/Kg ABW; 45- 60 g/day. Fluids: 1 ml/Kcal, or as per MD. Nutrition Intervention Change Diet Order: Discontinued. Nutrition Support: Start TF-Nepro w/CARBSTEADY @ 35 ml/hr. Flush: 160 ml water Q 4 hr,or as per MD. Kcal 1,530 Protein (gm) 69 Carbohydrates (gm) 137 Fat (gm) 82 Fluid (mL) 618 Fiber (gm) 11 % RDI: 97% Kcal; 115% AA. Goal #1 Provide at least 75% of energy /protein needs through Enteral Feeding during LOS. Follow-Up By: 11/26/21 Additional Comments Start monitoring TF tolerance and BM.
--- NOTE | 2021-11-26 08:53 | Progress Note ---
Assessment and Plan Impression: * Stage V CKD --SCr 4.8mg/dL in Apr 2021 * Herpes zoster * Hyperkalemia * Metabolic acidosis * Secondary Hyperparathyroidism * Azotemia * Transaminitis * Hypertension Plan: * Patient with progression of chronic kidney disease. Patient well known to myself for CKD, has been refusing dialysis in generally but has stated "would do it" if needed. * Spoke with son at length during admission- given likely uremia, hyperkalemia, acidosis do feel that patient will benefit from initiation of dialysis at this time. Son agrees and would like to move forward with this as well, as patient herself is unable to make decisions (but as noted has stated would want dialysis in worst case scenario) * S/p permcath placement 11/26, started HD 11/26 per new start protocol (daily x3 days) to avoid dialysis disequilibrium, HD again today * Can stop Na bicarbonate as acidosis should be managed with HD now * continue home calcitriol, calcium acetate * Antiviral per primary team, ID * Dose medications for renal function * Avoid potential nephrotoxins * AM labs * No family present today, will provide updates via phone later Subjective Date of service: 11/26/21 Principal diagnosis: Abnormal LFTs Interval history: Remains altered mentation this AM, did start HD yesterday, no issues noted per nursing Objective - Exam Narrative Exam: General appearance: confused, ill appearing EENT: other (vesicular rash involving left eye, forehead, hinduism; crusting lesions) Respiratory: Clear to Ascultation Heart: regular, S1S2 Gastrointestinal: Present: normal Integumentary: warm and dry Musculoskeletal: Present: other (bilateral LE amputation) - Vital Signs Vital signs: Vital Signs - 12hr 11/25/21 11/25/21 11/25/21 20:59 22:30 22:35 Temperature Pulse Rate 123 H 178 H 178 H Respiratory 24 Rate Blood Pressure Blood Pressure 99/62 [Right] O2 Sat by Pulse 96 Oximetry 11/25/21 11/25/21 11/26/21 22:45 23:30 02:18 Temperature 98.5 F Pulse Rate 120 H 121 H 117 H Respiratory 20 24 Rate Blood Pressure Blood Pressure 117/85 139/79 [Right] O2 Sat by Pulse 97 97 Oximetry 11/26/21 11/26/21 11/26/21 04:00 04:07 06:03 Temperature 98.2 F Pulse Rate 120 H 124 H 119 H Respiratory 22 Rate Blood Pressure Blood Pressure 159/95 [Right] O2 Sat by Pulse 97 Oximetry 11/26/21 07:19 Temperature 98.3 F Pulse Rate 114 H Respiratory 22 Rate Blood Pressure 150/93 Blood Pressure [Right] O2 Sat by Pulse 98 Oximetry - Lab 11/24/21 08:06 11/25/21 07:03 Most recent lab results Calcium 6.7 mg/dL (8.4-10.2) L 11/25/21 07:03 Phosphorus 4.60 mg/dL (2.5-4.5) H 11/24/21 08:06 Magnesium 1.60 mg/dL (1.7-2.3) L 11/24/21 08:06 Medications & Allergies - Medications Allergies/Adverse Reactions: Allergies peanut Allergy (Verified 11/24/21 13:01) Anaphylaxis morphine Adverse Reaction (Verified 11/24/21 13:01) Dizziness Pork/Porcine Containing Products Adverse Reaction (Verified 11/24/21 13:01) Swelling Home Medications: Home Medications Medication Instructions Recorded Confirmed Last Taken Type Metoprolol 100 mg PO DAILY 11/21/21 11/21/21 11/20/21 History Active Medications: Generic Name Dose Route Start Last Admin Trade Name Freq PRN Reason Stop Dose Admin Acetaminophen 650 mg 11/21/21 05:04 Acetaminophen 325 Mg Tab PO Q4H PRN Pain MILD(1-3)/Fever >100.5/DAVIS Albuterol 2.5 mg 11/21/21 05:04 Albuterol 2.5 Mg/3 Ml Nebu IH Q3HRT PRN Shortness Of Breath Lipase/Protease/Amylase 1 each 11/24/21 14:04 Lipase 10,500/Protease 25,000/Amylase 43,750 (Units) Dr Alejo FEEDTUBE PRN PRN For Clogged Feeding Tube Calcitriol 0.5 mcg 11/22/21 11:00 11/25/21 09:17 Calcitriol 0.5 Mcg Cap PO Not Given QDAY JIMMY Calcium Acetate 1,334 mg 11/22/21 14:00 11/26/21 08:10 Calcium Acetate 667 Mg Cap PO Not Given TID JIMMY Famotidine 10 mg 11/26/21 10:00 Famotidine 20 Mg/2 Ml Inj IV BID JIMMY Heparin Sodium (Porcine) 5,000 unit 11/21/21 10:00 11/25/21 20:59 Heparin 5,000 Unit/1 Ml Vial SUB-Q 5,000 unit Q12HR JIMMY Administration Hydralazine HCl 20 mg 11/23/21 20:00 11/26/21 04:07 Hydralazine 20 Mg/1 Ml Inj IV Not Given Q8H JIMMY Dextrose/Sodium Chloride 1,000 mls @ 100 mls/hr 11/24/21 20:00 D5ns IV DIRECT JIMMY Sodium Chloride 100 mls @ 999 mls/hr 11/25/21 10:00 Nacl 0.9% IV SHIVA PRN Hypotension Labetalol HCl 20 mg 11/23/21 00:38 11/25/21 18:44 Labetalol 20 Mg/4 Ml Inj IV 20 mg Q6HR PRN Administration SBP>170 Metoprolol Tartrate 5 mg 11/25/21 13:00 11/26/21 06:03 Metoprolol Tartrate 5 Mg/5 Ml Inj IV 5 mg Q6H JIMMY Administration Ondansetron HCl 4 mg 11/21/21 05:04 Ondansetron 4 Mg/2 Ml Inj IV Q8H PRN Nausea And Vomiting Oxycodone/Acetaminophen 1 tab 11/21/21 16:22 Oxycodone /Acetaminophen 5-325mg Tab PO Q6H PRN Pain, Moderate (4-6) Simple Syrup 15 ml 11/24/21 14:04 Simple Syrup 15 Ml FEEDTUBE PRN PRN Hypoglycemia Simple Syrup 30 ml 11/24/21 14:04 Simple Syrup 15 Ml FEEDTUBE PRN PRN Hypoglycemia Sodium Bicarbonate 1,950 mg 11/22/21 08:00 11/26/21 08:10 Sodium Bicarbonate 650 Mg Tab PO Not Given TID JIMMY Sodium Chloride 10 ml 11/21/21 10:00 11/25/21 20:59 Sodium Chloride 0.9% 10 Ml Flush Syringe IV 10 ml BID JIMMY Administration Sodium Chloride 10 ml 11/21/21 05:04 Sodium Chloride 0.9% 10 Ml Flush Syringe IV PRN PRN LINE FLUSH
[2021-11-26] MEDS: HEPARIN 5,000 UNIT/1 ML VIAL SUB-Q SCH ×2 (10:27→22:13)
[2021-11-26] MEDS: FAMOTIDINE 20 MG/2 ML INJ IV SCH ×2 (10:27→22:13)
--- NOTE | 2021-11-26 10:40 | Progress Note ---
Assessment and Plan - Patient Problems (1) Paroxysmal supraventricular tachycardia Current Visit: Yes Status: Acute Plan to address problem: Echocardiogram shows well-preserved left ventricular systolic function, ejection fraction 50 to 55%. Continue scheduled metoprolol for management of paroxysmal narrow complex tachycardia. Subjective Date of service: 11/26/21 Principal diagnosis: Shingles, sepsis, acute renal failure, PSVT Interval history: Patient is comfortable, no acute distress. On line lead there is a sinus tachycardia at 120. During the night, there was another short burst of narrow complex tachycardia, now resolved. Objective Vital Signs Temp Pulse Pulse Resp BP BP Pulse Ox 11/26/21 07:19 98.3 F 114 H 22 150/93 98 11/26/21 06:03 119 H 11/26/21 04:07 124 H 11/26/21 04:00 98.2 F 120 H 22 159/95 97 11/26/21 02:18 117 H 11/25/21 23:30 121 H 24 139/79 97 11/25/21 22:45 98.5 F 120 H 20 117/85 97 11/25/21 22:35 178 H 24 99/62 96 11/25/21 22:30 178 H 11/25/21 20:59 123 H 11/25/21 20:10 122 H 16 97 11/25/21 19:44 98.4 F 116 H 18 158/96 97 11/25/21 19:00 122 H 11/25/21 18:44 132 H 174/96 11/25/21 18:39 132 H 174/96 11/25/21 15:51 97.9 F 117 H 20 179/84 11/25/21 15:50 172 H 150/96 11/25/21 15:47 174 H 150/96 11/25/21 15:20 94 H 165/83 11/25/21 15:00 101 H 195/86 11/25/21 14:45 97 H 156/85 11/25/21 14:30 94 H 164/87 11/25/21 14:15 98 H 130/75 11/25/21 14:00 98 H 148/74 11/25/21 13:45 99 H 160/84 11/25/21 13:30 119 H 166/87 11/25/21 13:20 128 H 165/82 11/25/21 13:00 97.9 F 128 H 20 165/82 11/25/21 12:01 98.5 F 18 182/117 Pulse Ox 11/26/21 07:19 11/26/21 06:03 11/26/21 04:07 11/26/21 04:00 11/26/21 02:18 11/25/21 23:30 11/25/21 22:45 11/25/21 22:35 11/25/21 22:30 11/25/21 20:59 11/25/21 20:10 11/25/21 19:44 11/25/21 19:00 11/25/21 18:44 11/25/21 18:39 11/25/21 15:51 99 11/25/21 15:50 11/25/21 15:47 11/25/21 15:20 11/25/21 15:00 11/25/21 14:45 11/25/21 14:30 11/25/21 14:15 11/25/21 14:00 11/25/21 13:45 11/25/21 13:30 11/25/21 13:20 11/25/21 13:00 99 11/25/21 12:01 - Physical Examination General: Cachectic HEENT: Positive: Other (Acute shingles rash overlying left upper forehead and periorbital area) Neck: Positive: neck supple Cardiac: Positive: Regular Rhythm Lungs: Positive: Decreased Breath Sounds Neuro: Positive: Weakness (Generalized lethargy) Abdomen: Positive: Soft Skin: Positive: Clear Extremities: Present: Other (Status post bilateral amputation) - Labs and Meds Cardiac Enzymes 11/25/21 Range/Units 07:56 CK-MB (CK-2) 2.0 (0.0-4.0) ng/mL
--- NOTE | 2021-11-26 11:27 | Consultation ---
History of Present Illness Consult date: 11/26/21 Chief complaint: dysphagia - History of present illness History of present illness: 61-year-old female with a past medical history of peripheral arterial disease status post bilateral lower extremity amputation, end-stage renal disease now on hemodialysis who presented to the hospital with complaints of a left facial rash and pain. She was diagnosed with shingles. During hospitalization she was started on dialysis. She was very lethargic yesterday and underwent a swallow eval with speech therapy and it was felt she was not safe to swallow. A PEG tube was recommended. At home the patient is usually oriented x3 and is able to eat normal foods. Her daughter is at the bedside to corroborate this history. Today the patient is much more alert. She is communicative and oriented x3. She states she want something to drink. Per nursing and the patient's daughter she was much more lethargic yesterday. The patient states that morphine causes her to become lethargic. Past History Past Medical History: hypertension, renal failure, stroke, other (Lupus) Past Surgical History: Other (Bilateral lower extremity amputation) Social history: denies: smoking Family history: hypertension Medications and Allergies Allergies Allergy/AdvReac Type Severity Reaction Status Date / Time peanut Allergy Anaphylaxis Verified 11/24/21 13:01 morphine AdvReac Dizziness Verified 11/24/21 13:01 Pork/Porcine Containing AdvReac Swelling Verified 11/24/21 13:01 Products Home Medications Medication Instructions Recorded Confirmed Last Taken Type Metoprolol 100 mg PO DAILY 11/21/21 11/21/21 11/20/21 History Active Meds: Active Medications Acetaminophen (Acetaminophen 325 Mg Tab) 650 mg PO Q4H PRN PRN Reason: Pain MILD(1-3)/Fever >100.5/DAVIS Albuterol (Albuterol 2.5 Mg/3 Ml Nebu) 2.5 mg IH Q3HRT PRN PRN Reason: Shortness Of Breath Lipase/Protease/Amylase (Lipase 10,500/Protease 25,000/Amylase 43,750 (Units) Dr Alejo) 1 each FEEDTUBE PRN PRN PRN Reason: For Clogged Feeding Tube Calcitriol (Calcitriol 0.5 Mcg Cap) 0.5 mcg PO QDAY JIMMY Last Admin: 11/25/21 09:17 Dose: Not Given Calcium Acetate (Calcium Acetate 667 Mg Cap) 1,334 mg PO TID [facility] Last Admin: 11/26/21 08:10 Dose: Not Given Famotidine (Famotidine 20 Mg/2 Ml Inj) 10 mg IV BID [facility] Last Admin: 11/26/21 10:27 Dose: 10 mg Heparin Sodium (Porcine) (Heparin 5,000 Unit/1 Ml Vial) 5,000 unit SUB-Q Q12HR [facility] Last Admin: 11/26/21 10:27 Dose: 5,000 unit Hydralazine HCl (Hydralazine 20 Mg/1 Ml Inj) 20 mg IV Q8H [facility] Last Admin: 11/26/21 04:07 Dose: Not Given Dextrose/Sodium Chloride (D5ns) 1,000 mls @ 100 mls/hr IV DIRECT [facility] Sodium Chloride (Nacl 0.9%) 100 mls @ 999 mls/hr IV SHIVA PRN PRN Reason: Hypotension Labetalol HCl (Labetalol 20 Mg/4 Ml Inj) 20 mg IV Q6HR PRN PRN Reason: SBP>170 Last Admin: 11/25/21 18:44 Dose: 20 mg Metoprolol Tartrate (Metoprolol Tartrate 5 Mg/5 Ml Inj) 5 mg IV Q6H [facility] Last Admin: 11/26/21 06:03 Dose: 5 mg Ondansetron HCl (Ondansetron 4 Mg/2 Ml Inj) 4 mg IV Q8H PRN PRN Reason: Nausea And Vomiting Oxycodone/Acetaminophen (Oxycodone /Acetaminophen 5-325mg Tab) 1 tab PO Q6H PRN PRN Reason: Pain, Moderate (4-6) Simple Syrup (Simple Syrup 15 Ml) 15 ml FEEDTUBE PRN PRN PRN Reason: Hypoglycemia Simple Syrup (Simple Syrup 15 Ml) 30 ml FEEDTUBE PRN PRN PRN Reason: Hypoglycemia Sodium Bicarbonate (Sodium Bicarbonate 650 Mg Tab) 1,950 mg PO TID [facility] Last Admin: 11/26/21 08:10 Dose: Not Given Sodium Chloride (Sodium Chloride 0.9% 10 Ml Flush Syringe) 10 ml IV BID [facility] Last Admin: 11/26/21 10:27 Dose: 10 ml Sodium Chloride (Sodium Chloride 0.9% 10 Ml Flush Syringe) 10 ml IV PRN PRN PRN Reason: LINE FLUSH Review of Systems All systems: negative (10 point ROS performed and negative except for that listed in HPI) Exam Vital Signs Temp Pulse Resp BP Pulse Ox 97 F L 112 H 18 174/100 96 11/20/21 21:26 11/20/21 21:26 11/20/21 21:26 11/20/21 21:26 11/20/21 21:26 Narrative exam: Gen.: Awake, alert, oriented x3. No apparent distress Head: Body left forehead and orbital/periorbital rash without tenderness or drainage. ENT: Right neck scar. Trachea midline. No lymphadenopathy. No scleral icterus or conjunctival pallor CV: S1, S2 present Respiratory: No audible wheezes Abdomen: Soft, nondistended, nontender. No rebound, rigidity, guarding Extremities: Bilateral lower extremity amputation Results - Labs 11/24/21 08:06 11/25/21 07:03 Abnormal lab results 11/25/21 Range/Units 07:56 Total Creatine Kinase 176 H (30-135) units/L Troponin T 0.117 H* (0.00-0.029) ng/mL Assessment and Plan 61 yo F with 1. dysphagia per speech therapy eval 2. ESRD on HD 3. protein calorie malnutrition Pt stable. More alert today per RN and patient's daughter. Plan: 1. Recommend repeat speech eval - spoke with therapist who will try to see patient later today. orders placed. 2. Recommend bedside swallow eval if speech unable to eval pt today 3. Start CLD and adv as natali if patient passes bedside swallow 4. Will hold off on G tube at this time as I believe patient failed speech eval due to being lethargic and less cooperative yesterday 5. HD per nephro - patient scheduled for HD this PM. Plan discussed with patient and her daughter at the bedside Discussed with Dr. Reyna Thank you for this consultation. Please call with any questions or concerns. Evaluation and treatment of this patient was during the time of the national and state emergency arising from COVID19 coronavirus pandemic. Treatment and procedures performed meet the current and available best practice and guidelines for patient during the COVID pandemic.
[2021-11-26] MEDS ORDERED: ACETAMINOPHEN 650 MG RECT SUPP PR PRN (13:02)
--- NOTE | 2021-11-26 16:50 | Progress Note ---
Assessment and Plan Cultures: None A/P: 61-year-old female past medical history CKD not on HD, hypertension, lupus, PAD, bilateral lower extremity amputations #Facial shingles: Appears to be in V1 of the trigeminal nerve. This is a sensory nerve, not usually associated with retinal necrosis. #MARCUS on CKD: Renally dose medications. Unfortunately she needs acyclovir due to the above. She is pending initiation of HD. Recs: -Held acyclovir until Monday, restart 5 mg/mg every 24 hours after initiation of HD, or whenever son is agreeable -Once resolved from acute infection, would recommend outpatient shingles vaccine -Outpatient ophthalmology evaluation Thank you for the consult, we will continue to follow. Javid Pablo MD [facility] ([facility]) O: [phone] F: [phone] Subjective Date of service: 11/26/21 Principal diagnosis: Shingles, sepsis, acute renal failure, PSVT Interval history: Afebrile, normal white count. Objective - Exam Narrative Exam: Physical Exam: Constitutional: Alert, cooperative. No acute distress Head, Ears, Nose: Normocephalic, atraumatic. External ears, nose normal Eyes: Conjunctivae/corneas clear. No icterus. No ptosis. Neck: Supple, no meningeal signs Oral: dentition fair, no thrush Cardiovascular: S1, S2 normal. Respiratory: Good air entry, clear to auscultation bilaterally GI: Soft, non-tender; bowel sounds normal. No peritoneal signs. Musculoskeletal: No pedal edema, no cyanosis. Skin: Left-sided facial shingles. Negative Archer sign Hem/Lymphatic: No palpable cervical or supraclavicular nodes. No lymphangitis Psych: Mood ok. Affect normal Neurological: Awake, alert, oriented. No gross abnormality - Constitutional Vitals: Vital Signs Temp Pulse Resp BP Pulse Ox 98.2 F 129 H 18 141/98 97 11/26/21 14:15 11/26/21 15:00 11/26/21 14:15 11/26/21 15:00 11/26/21 14:15 Temperature -Last 24 Hours Temperature 98.2 F Temperature 98.1 F Temperature 99.4 F Temperature 98.3 F Temperature 98.2 F Temperature 98.5 F Temperature 98.4 F - Labs CBC & Chem 7: 11/24/21 08:06 11/25/21 07:03
[2021-11-26] MEDS: CALCITRIOL 0.5 MCG CAP PO SCH (16:51)
[2021-11-27] MEDS: METOPROLOL TARTRATE 5 MG/5 ML INJ IV SCH ×6 (00:43→21:10)
[2021-11-27] MEDS: hydrALAZINE 20 MG/1 ML INJ IV SCH ×3 (05:06→21:11)
--- NOTE | 2021-11-27 07:40 | Progress Note ---
Assessment and Plan Assessment and plan: 61-year-old with a history of chronic kidney disease, lupus, hypertension ,peripheral artery disease status post bilateral amputation presented to the emergency room with the complaints of left supraorbital and forehead rash/shingles for the last 4-5 days. Assessment and plan: #Dysphagia -Speech therapy recommended PEG placement -General surgery consulted, plan for placement Monday -several attempts made to place dobhoff, will try again today if unable to place will start PPN #Supraventricular tachycardia -new onset this hospitalization -s/p adenosine -PO metoprolol held due to dysphagia, continue PRN IV metoprolol -Cardiology following, assistance appreciated #Acute kidney injury on chronic kidney disease stage V now requiring hemodialysis -Permacath placement 11/25 -HD yesterday, will receive 2 more treatments daily -monitor renal function, avoid nephrotoxins -continue calcitrol -Nephrology following, assistance appreciated #Transaminitis -improving -GI signed off -likely secondary to hypotension #Herpes zoster/shingles[left upper supraorbital area and forehead] -continue Pain medications, local care, contact isolation -continue IV acyclovir, transition to oral once all the lesions are crusted -ID recommendations noted and appreciated -Patient needs ophthalmology evaluation upon discharge (no inpatient services available); patient vision not compromised at this time -Wound culture from face grew Pseudomonas aeruginosa which is pansensitive. Will follow with ID for the need for antibiotics. -Patient is not on IV acyclovir, spoke with ID and this is less and does not agree, physician agreed with acyclovir I will start it. #Hyperkalemia; resolved -s/p Calcium gluconate, Kayexalate -will be addressed with dialysis #history of recurrent CVAs x5-6 #Severe dysarthria -residual right-sided hemiparesis -stable #History of of lupus -Continue supportive care #History of PAD (peripheral artery disease) #Bilateral lower extremity amputations -Bilateral LE amputations #Hypertension -BP medications held due to dysphagia -will resume with placement of dobhoff/PEG -PRN medications for now #Metabolic acidosis -Due to chronic kidney disease stage V -continue bicarbonate #Disposition -discharge to SNF/NH when clinically stable -Case management aware History Interval history: Patient was seen and evaluated this morning Patient did not have any new complaints Patient wants to drink but speech therapy evaluated and wants to keep her n.p.o. Hospitalist Physical - Physical exam Narrative exam: GENERAL: Well-developed well-nourished. In no acute distress. HEENT: Left orbit and upper part of face with scabbing healing zoster rash. NECK: Supple. CHEST/LUNGS: CTAB on room air HEART/CARDIOVASCULAR: Tachycardic. No murmur, rubs or gallops appreciated. ABDOMEN: +BS. NT/ND. NEURO: Dysarthria. EXTREMITIES: Right upper extremity contracted. Left BKA, right AKA. No cyanosis, clubbing or edema. PSYCH: Cooperative. - Constitutional Vitals: Temp Pulse Resp BP Pulse Ox 98.9 F 89 18 162/87 97 11/27/21 05:01 11/27/21 05:06 11/27/21 05:01 11/27/21 05:06 11/27/21 05:01 General appearance: Present: no acute distress, well-nourished, other (Shingles lesions slightly dry, patient is anxious) HEART Score - HEART Score Troponin: Troponin T 0.117 ng/mL (0.00-0.029) H* 11/25/21 07:56 Results - Labs CBC & Chem 7: 11/24/21 08:06 11/27/21 10:44 Labs: Laboratory Last Values WBC 6.6 K/mm3 (4.5-11.0) 11/24/21 08:06 RBC 3.66 M/mm3 (3.65-5.03) 11/24/21 08:06 Hgb 10.0 gm/dl (10.1-14.3) L 11/24/21 08:06 Hct 30.7 % (30.3-42.9) 11/24/21 08:06 MCV 84 fl (79-97) 11/24/21 08:06 MCH 27 pg (28-32) L 11/24/21 08:06 MCHC 33 % (30-34) 11/24/21 08:06 RDW 15.1 % (13.2-15.2) 11/24/21 08:06 Plt Count 197 K/mm3 (140-440) 11/24/21 08:06 Lymph % (Auto) 32.4 % (13.4-35.0) 11/24/21 08:06 [place] % (Auto) 8.4 % (0.0-7.3) H 11/24/21 08:06 Eos % (Auto) 0.3 % (0.0-4.3) 11/24/21 08:06 Baso % (Auto) 0.5 % (0.0-1.8) 11/24/21 08:06 Lymph # (Auto) 2.2 K/mm3 (1.2-5.4) 11/24/21 08:06 [place] # (Auto) 0.6 K/mm3 (0.0-0.8) 11/24/21 08:06 Eos # (Auto) 0.0 K/mm3 (0.0-0.4) 11/24/21 08:06 Baso # (Auto) 0.0 K/mm3 (0.0-0.1) 11/24/21 08:06 Seg Neutrophils % 58.4 % (40.0-70.0) 11/24/21 08:06 Seg Neutrophils # 3.9 K/mm3 (1.8-7.7) 11/24/21 08:06 PT 17.0 Sec. (12.2-14.9) H 11/20/21 23:52 INR 1.23 (0.87-1.13) H 11/20/21 23:52 Sodium 143 mmol/L (137-145) D 11/25/21 07:03 Potassium 5.3 mmol/L (3.6-5.0) H 11/25/21 07:03 Chloride 106.7 mmol/L (98-107) 11/25/21 07:03 Carbon Dioxide 17 mmol/L (22-30) L 11/25/21 07:03 Anion Gap 25 mmol/L 11/25/21 07:03 BUN 82 mg/dL (7-17) H 11/25/21 07:03 Creatinine 10.9 mg/dL (0.6-1.2) H 11/25/21 07:03 Estimated GFR 4 ml/min 11/25/21 07:03 BUN/Creatinine Ratio 8 % 11/25/21 07:03 Glucose 86 mg/dL (65-100) 11/25/21 07:03 POC Glucose 108 mg/dL (70-105) H 11/24/21 17:18 Calcium 6.7 mg/dL (8.4-10.2) L 11/25/21 07:03 Phosphorus 4.60 mg/dL (2.5-4.5) H 11/24/21 08:06 Magnesium 1.60 mg/dL (1.7-2.3) L 11/24/21 08:06 Total Bilirubin 0.40 mg/dL (0.1-1.2) 11/25/21 07:03 AST 82 units/L (5-40) H 11/25/21 07:03 ALT 181 units/L (7-56) H 11/25/21 07:03 Alkaline Phosphatase 82 units/L (35-129) 11/25/21 07:03 Total Creatine Kinase 176 units/L (30-135) H 11/25/21 07:56 CK-MB (CK-2) 2.0 ng/mL (0.0-4.0) 11/25/21 07:56 CK-MB (CK-2) Rel Index 1.1 (0-4) 11/25/21 07:56 Troponin T 0.117 ng/mL (0.00-0.029) H* 11/25/21 07:56 Total Protein 8.1 g/dL (6.3-8.2) 11/25/21 07:03 Albumin 2.9 g/dL (3.9-5) L 11/25/21 07:03 Albumin/Globulin Ratio 0.6 % 11/25/21 07:03 Triglycerides 155 mg/dL (2-149) H 11/24/21 08:06 Cholesterol 132 mg/dL (50-199) 11/24/21 08:06 LDL Cholesterol Direct 61 mg/dL (50-130) 11/24/21 08:06 HDL Cholesterol 21 mg/dL (40-59) L 11/24/21 08:06 Cholesterol/HDL Ratio 6.28 % 11/24/21 08:06 Hepatitis A IgM Ab Non-reactive (NonReactive) 11/25/21 07:03 Hep Bs Antigen Non-reactive (Negative) 11/25/21 07:03 Hep B Core IgM Ab Non-reactive (NonReactive) 11/25/21 07:03 Hepatitis C Antibody Non-reactive (NonReactive) 11/25/21 07:03 [place]/IV: Voiding Method Incontinent Active Medications - Current Medications Current Medications: Generic Name Dose Route Start Last Admin Trade Name Freq PRN Reason Stop Dose Admin Acetaminophen 650 mg 11/26/21 13:02 11/26/21 13:08 Acetaminophen 650 Mg Rect Supp [place] 650 mg Q4H PRN Administration Pain, Mild (1-3) Albuterol 2.5 mg 11/21/21 05:04 11/26/21 18:04 Albuterol 2.5 Mg/3 Ml Nebu IH 2.5 mg Q3HRT PRN Administration Shortness Of Breath Lipase/Protease/Amylase 1 each 11/24/21 14:04 Lipase 10,500/Protease 25,000/Amylase 43,750 (Units) Dr Alejo FEEDTUBE PRN PRN For Clogged Feeding Tube Calcitriol 0.5 mcg 11/22/21 11:00 11/26/21 16:51 Calcitriol 0.5 Mcg Cap PO Not Given QDAY JIMMY Calcium Acetate 1,334 mg 11/22/21 14:00 11/26/21 20:07 Calcium Acetate 667 Mg Cap PO Not Given TID JIMMY Famotidine 10 mg 11/26/21 10:00 11/26/21 22:13 Famotidine 20 Mg/2 Ml Inj IV 10 mg BID JIMMY Administration Heparin Sodium (Porcine) 5,000 unit 11/21/21 10:00 11/26/21 22:13 Heparin 5,000 Unit/1 Ml Vial SUB-Q 5,000 unit Q12HR JIMMY Administration Hydralazine HCl 20 mg 11/23/21 20:00 11/27/21 05:06 Hydralazine 20 Mg/1 Ml Inj IV 20 mg Q8H JIMMY Administration Dextrose/Sodium Chloride 1,000 mls @ 100 mls/hr 11/24/21 20:00 D5ns IV DIRECT JIMMY Sodium Chloride 100 mls @ 999 mls/hr 11/25/21 10:00 Nacl 0.9% IV SHIVA PRN Hypotension Labetalol HCl 20 mg 11/23/21 00:38 11/25/21 18:44 Labetalol 20 Mg/4 Ml Inj IV 20 mg Q6HR PRN Administration SBP>170 Metoprolol Tartrate 5 mg 11/25/21 13:00 11/27/21 00:45 Metoprolol Tartrate 5 Mg/5 Ml Inj IV 5 mg Q6H JIMMY Administration Ondansetron HCl 4 mg 11/21/21 05:04 Ondansetron 4 Mg/2 Ml Inj IV Q8H PRN Nausea And Vomiting Oxycodone/Acetaminophen 1 tab 11/21/21 16:22 Oxycodone /Acetaminophen 5-325mg Tab PO Q6H PRN Pain, Moderate (4-6) Simple Syrup 15 ml 11/24/21 14:04 Simple Syrup 15 Ml FEEDTUBE PRN PRN Hypoglycemia Simple Syrup 30 ml 11/24/21 14:04 Simple Syrup 15 Ml FEEDTUBE PRN PRN Hypoglycemia Sodium Bicarbonate 1,950 mg 11/22/21 08:00 11/26/21 20:07 Sodium Bicarbonate 650 Mg Tab PO Not Given TID JIMMY Sodium Chloride 10 ml 11/21/21 10:00 11/26/21 22:13 Sodium Chloride 0.9% 10 Ml Flush Syringe IV 10 ml BID JIMMY Administration Sodium Chloride 10 ml 11/21/21 05:04 Sodium Chloride 0.9% 10 Ml Flush Syringe IV PRN PRN LINE FLUSH Nutrition/Malnutrition Assess - Dietary Evaluation Nutrition/Malnutrition Findings: Nutrition Notes Start: 11/22/21 11:42 Freq: Status: Active Protocol: Document 11/26/21 14:49 AURY (Rec: 11/26/21 14:54 AURY [id number]) Nutrition Notes Initial or Follow up Brief Note Current Diagnosis CKD (stage V CKD),Hypertension ,Stroke Other Pertinent Diagnosis Hyperkalemia, Lupus, Zoster, PAD, s/p Bilateral-[place], Metabolic Acidosis, .. Current Diet NPO (since 11/25 00:01). Height 5 ft 5 in Weight 74.843 kg [place] Body Weight (kg) 56.81 BMI 27.4 Weight change and time frame No body weight change reported in 2 days. Weight Status Overweight Subjective/Other Information RD consult for routine F/U on TF tolerance/continuation. Pt is currently on NPO. Multiple attempts failed to place the Dobbhoff; general surgery consulted about PEG tube placement, according to Progress notes. Percent of energy/protein needs met: Pt currently on NPO. Nutrition Intervention Nutrition Support: On Hold. Follow-Up By: 11/29/21 Additional Comments When pertinent, start monitoring TF tolerance and BM .
[2021-11-27] MEDS: SODIUM BICARBONATE 650 MG TAB PO SCH ×3 (08:13→21:08)
[2021-11-27] MEDS: CALCIUM ACETATE 667 MG CAP PO SCH ×3 (08:13→21:08)
[2021-11-27] MEDS: FAMOTIDINE 20 MG/2 ML INJ IV SCH ×2 (10:33→21:11)
[2021-11-27] MEDS: HEPARIN 5,000 UNIT/1 ML VIAL SUB-Q SCH ×2 (10:33→21:12)
[2021-11-27] MEDS: CALCITRIOL 0.5 MCG CAP PO SCH (10:34)
[2021-11-27 11:25] LABS: Calcium 7.3 mg/dL (8.4-10.2)
--- NOTE | 2021-11-27 12:31 | Progress Note ---
Assessment and Plan - Patient Problems (1) Paroxysmal supraventricular tachycardia Current Visit: Yes Status: Acute Plan to address problem: Echocardiogram shows well-preserved left ventricular systolic function, ejection fraction 50 to 55%. Continue scheduled metoprolol for management of paroxysmal narrow complex tachycardia. We will transition to oral metoprolol when patient is taking oral. Subjective Date of service: 11/27/21 Principal diagnosis: Shingles, sepsis, acute renal failure, PSVT Interval history: Patient is comfortable, no acute distress. No further SVT has been recorded on intravenous metoprolol. Patient has also been started on hemodialysis. Objective Vital Signs Temp Pulse Pulse Resp Resp BP BP 11/27/21 10:00 138 H 11/27/21 08:13 138 H 11/27/21 07:56 98.0 F 95 H 18 138/100 11/27/21 05:06 89 162/87 11/27/21 05:01 98.9 F 89 18 162/87 11/27/21 03:00 120 H 11/27/21 00:45 122 H 134/89 11/27/21 00:37 98.9 F 122 H 18 134/89 11/26/21 22:00 11/26/21 20:16 135 H 130/95 11/26/21 20:09 135 H 130/95 11/26/21 19:45 98.2 F 135 H 18 130/95 11/26/21 19:00 131 H 11/26/21 18:04 130 H 22 11/26/21 17:22 98.5 F 127 H 24 144/91 11/26/21 16:30 98.8 F 127 H 20 156/101 11/26/21 16:00 112 H 130/99 11/26/21 15:45 113 H 142/96 11/26/21 15:30 131 H 139/97 11/26/21 15:15 128 H 143/95 11/26/21 15:00 129 H 141/98 11/26/21 14:45 79 131/93 11/26/21 14:30 117 H 143/93 11/26/21 14:20 117 H 139/79 11/26/21 14:15 98.2 F 90 18 111/91 11/26/21 12:50 125 H 171/108 11/26/21 12:48 125 H 171/108 Pulse Ox Pulse Ox 11/27/21 10:00 97 11/27/21 08:13 11/27/21 07:56 92 11/27/21 05:06 11/27/21 05:01 97 11/27/21 03:00 11/27/21 00:45 11/27/21 00:37 96 11/26/21 22:00 99 11/26/21 20:16 11/26/21 20:09 11/26/21 19:45 96 11/26/21 19:00 11/26/21 18:04 11/26/21 17:22 98 11/26/21 16:30 97 11/26/21 16:00 11/26/21 15:45 11/26/21 15:30 11/26/21 15:15 11/26/21 15:00 11/26/21 14:45 11/26/21 14:30 11/26/21 14:20 11/26/21 14:15 97 11/26/21 12:50 11/26/21 12:48 - Physical Examination General: Cachectic HEENT: Positive: Other (Acute shingles rash overlying left upper forehead and periorbital area) Neck: Positive: neck supple Cardiac: Positive: Reg Rate and Rhythm Lungs: Positive: Decreased Breath Sounds Neuro: Positive: Weakness (Generalized lethargy) Abdomen: Positive: Soft Skin: Positive: Clear Extremities: Present: Other (Status post bilateral amputation) - Labs and Meds Comprehensive Metabolic Panel 11/27/21 Range/Units 10:44 Sodium 140 (137-145) mmol/L Potassium 3.5 L D (3.6-5.0) mmol/L Chloride 102.7 (98-107) mmol/L Carbon Dioxide 25 D (22-30) mmol/L BUN 26 H (7-17) mg/dL Creatinine 5.2 H D (0.6-1.2) mg/dL Glucose 82 (65-100) mg/dL Calcium 7.3 L (8.4-10.2) mg/dL
--- NOTE | 2021-11-27 13:21 | Event Note ---
Date: 11/27/21 Pt chart reviewed. 61 yo F with 1. dysphagia per speech therapy eval 2. ESRD on HD 3. protein calorie malnutrition Pt seen by speech therapy yesterday with increased work of breathing with subsequent swallows. Did not exhibit any signs of aspiration with the pureed nor liquids, although oral transit was significantly reduced with the pureed. Plan: 1. Speech to reeval today per notes 2. If still unable to pass speech eval, will re-discuss G tube placement with patient and daughter. Patient adamantly refused G tube yesterday upon initial consultation. Will follow up speech eval today and make further recs.
--- NOTE | 2021-11-27 16:50 | Progress Note ---
Assessment and Plan Impression: * Stage V CKD --SCr 4.8mg/dL in Apr 2021 * Herpes zoster * Hyperkalemia * Metabolic acidosis * Secondary Hyperparathyroidism * Azotemia * Transaminitis * Hypertension Plan: * Patient with progression of chronic kidney disease. Patient well known to myself for CKD, has been refusing dialysis in generally but has stated "would do it" if needed. * Spoke with son at length during admission- given likely uremia, hyperkalemia, acidosis do feel that patient will benefit from initiation of dialysis at this time. Son agrees and would like to move forward with this as well, as patient herself is unable to make decisions (but as noted has stated would want dialysis in worst case scenario) * S/p permcath placement 11/26, started HD 11/26 per new start protocol (daily x3 days) to avoid dialysis disequilibrium, HD again today * Plan to continue // HD moving forward or prn * Can stop Na bicarbonate as acidosis should be managed with HD now * continue home calcitriol, calcium acetate * Antiviral per primary team, ID * Dose medications for renal function * Avoid potential nephrotoxins * AM labs * No family present today, did update lucie Sylvester via phone Subjective Date of service: 11/27/21 Principal diagnosis: Shingles, sepsis, acute renal failure, PSVT Interval history: Patient drowsy but more awake this AM Objective - Exam Narrative Exam: General appearance: confused, ill appearing EENT: other (vesicular rash involving left eye, forehead, advent; crusting lesions) Respiratory: Clear to Ascultation Heart: regular, S1S2 Gastrointestinal: Present: normal Integumentary: warm and dry Musculoskeletal: Present: other (bilateral LE amputation) - Vital Signs Vital signs: Vital Signs - 12hr 11/27/21 11/27/21 11/27/21 05:01 05:06 07:56 Temperature 98.9 F 98.0 F Pulse Rate 89 89 95 H Respiratory 18 18 Rate Blood Pressure 162/87 138/100 Blood Pressure 162/87 [Left] O2 Sat by Pulse 97 92 Oximetry O2 Sat by Pulse Oximetry [ Anterior Bilateral Throughout] 11/27/21 11/27/21 11/27/21 08:13 10:00 12:50 Temperature 98.6 F Pulse Rate 138 H 138 H Respiratory 18 Rate Blood Pressure Blood Pressure [Left] O2 Sat by Pulse 97 Oximetry O2 Sat by Pulse Oximetry [ Anterior Bilateral Throughout] 11/27/21 11/27/21 11/27/21 12:53 12:55 13:00 Temperature 98.2 F Pulse Rate 126 H 126 H Respiratory 18 Rate Blood Pressure 174/118 196/108 Blood Pressure [Left] O2 Sat by Pulse 97 Oximetry O2 Sat by Pulse 100 Oximetry [ Anterior Bilateral Throughout] 11/27/21 11/27/21 11/27/21 13:15 13:30 13:45 Temperature Pulse Rate 74 60 124 H Respiratory Rate Blood Pressure 158/115 161/117 170/104 Blood Pressure [Left] O2 Sat by Pulse Oximetry O2 Sat by Pulse Oximetry [ Anterior Bilateral Throughout] 11/27/21 11/27/21 11/27/21 14:00 14:15 14:30 Temperature Pulse Rate 108 H 97 H 82 Respiratory Rate Blood Pressure 213/101 214/84 161/97 Blood Pressure [Left] O2 Sat by Pulse Oximetry O2 Sat by Pulse Oximetry [ Anterior Bilateral Throughout] 11/27/21 11/27/21 11/27/21 14:45 15:00 15:15 Temperature Pulse Rate 93 H 89 89 Respiratory Rate Blood Pressure 154/105 106/57 119/98 Blood Pressure [Left] O2 Sat by Pulse Oximetry O2 Sat by Pulse Oximetry [ Anterior Bilateral Throughout] 11/27/21 11/27/21 15:40 16:10 Temperature 98.9 F 98.0 F Pulse Rate Respiratory 20 18 Rate Blood Pressure 147/120 179/114 Blood Pressure [Left] O2 Sat by Pulse Oximetry O2 Sat by Pulse 100 Oximetry [ Anterior Bilateral Throughout] - Lab 11/24/21 08:06 11/27/21 10:44 Most recent lab results Calcium 7.3 mg/dL (8.4-10.2) L 11/27/21 10:44 Phosphorus 4.60 mg/dL (2.5-4.5) H 11/24/21 08:06 Magnesium 1.60 mg/dL (1.7-2.3) L 11/24/21 08:06 Medications & Allergies - Medications Allergies/Adverse Reactions: Allergies peanut Allergy (Verified 11/24/21 13:01) Anaphylaxis morphine Adverse Reaction (Verified 11/24/21 13:01) Dizziness Pork/Porcine Containing Products Adverse Reaction (Verified 11/24/21 13:01) Swelling Home Medications: Home Medications Medication Instructions Recorded Confirmed Last Taken Type Metoprolol 100 mg PO DAILY 11/21/21 11/21/21 11/20/21 History Active Medications: Generic Name Dose Route Start Last Admin Trade Name Freq PRN Reason Stop Dose Admin Acetaminophen 650 mg 11/26/21 13:02 11/26/21 13:08 Acetaminophen 650 Mg Rect Supp [place] 650 mg Q4H PRN Administration Pain, Mild (1-3) Albuterol 2.5 mg 11/21/21 05:04 11/26/21 18:04 Albuterol 2.5 Mg/3 Ml Nebu IH 2.5 mg Q3HRT PRN Administration Shortness Of Breath Lipase/Protease/Amylase 1 each 11/24/21 14:04 Lipase 10,500/Protease 25,000/Amylase 43,750 (Units) Dr Alejo FEEDTUBE PRN PRN For Clogged Feeding Tube Calcitriol 0.5 mcg 11/22/21 11:00 11/27/21 10:34 Calcitriol 0.5 Mcg Cap PO Not Given QDAY JIMMY Calcium Acetate 1,334 mg 11/22/21 14:00 11/27/21 15:47 Calcium Acetate 667 Mg Cap PO Not Given TID JIMMY Famotidine 10 mg 11/26/21 10:00 11/27/21 10:33 Famotidine 20 Mg/2 Ml Inj IV 10 mg BID JIMMY Administration Heparin Sodium (Porcine) 5,000 unit 11/21/21 10:00 11/27/21 10:33 Heparin 5,000 Unit/1 Ml Vial SUB-Q 5,000 unit Q12HR JIMMY Administration Hydralazine HCl 20 mg 11/23/21 20:00 11/27/21 12:00 Hydralazine 20 Mg/1 Ml Inj IV Not Given Q8H JIMMY Dextrose/Sodium Chloride 1,000 mls @ 100 mls/hr 11/24/21 20:00 D5ns IV DIRECT JIMMY Sodium Chloride 100 mls @ 999 mls/hr 11/25/21 10:00 Nacl 0.9% IV SHIVA PRN Hypotension Acyclovir 375 mg/ Sodium 107.5 mls @ 100 mls/hr 11/27/21 20:00 Chloride IV QDAY [facility] Protocol Labetalol HCl 20 mg 11/23/21 00:38 11/25/21 18:44 Labetalol 20 Mg/4 Ml Inj IV 20 mg Q6HR PRN Administration SBP>170 Metoprolol Tartrate 5 mg 11/25/21 13:00 11/27/21 13:00 Metoprolol Tartrate 5 Mg/5 Ml Inj IV Not Given Q6H JIMMY Ondansetron HCl 4 mg 11/21/21 05:04 Ondansetron 4 Mg/2 Ml Inj IV Q8H PRN Nausea And Vomiting Oxycodone/Acetaminophen 1 tab 11/21/21 16:22 Oxycodone /Acetaminophen 5-325mg Tab PO Q6H PRN Pain, Moderate (4-6) Simple Syrup 15 ml 11/24/21 14:04 Simple Syrup 15 Ml FEEDTUBE PRN PRN Hypoglycemia Simple Syrup 30 ml 11/24/21 14:04 Simple Syrup 15 Ml FEEDTUBE PRN PRN Hypoglycemia Sodium Bicarbonate 1,950 mg 11/22/21 08:00 11/27/21 15:47 Sodium Bicarbonate 650 Mg Tab PO Not Given TID JIMMY Sodium Chloride 10 ml 11/21/21 10:00 11/27/21 10:34 Sodium Chloride 0.9% 10 Ml Flush Syringe IV 10 ml BID JIMMY Administration Sodium Chloride 10 ml 11/21/21 05:04 Sodium Chloride 0.9% 10 Ml Flush Syringe IV PRN PRN LINE FLUSH
[2021-11-27] MEDS: ACYCLOVIR IV SCH (20:46)
[2021-11-27] MEDS: SODIUM CHLORIDE 0.9% IV SCH (20:46)
[2021-11-28] MEDS: METOPROLOL TARTRATE 5 MG/5 ML INJ IV SCH ×4 (00:38→18:42)
[2021-11-28] MEDS: hydrALAZINE 20 MG/1 ML INJ IV SCH ×3 (05:41→22:43)
[2021-11-28 05:49] LABS: Calcium 7.1 mg/dL (8.4-10.2)
--- NOTE | 2021-11-28 07:50 | Progress Note ---
Assessment and Plan Assessment and plan: 61-year-old with a history of chronic kidney disease, lupus, hypertension ,peripheral artery disease status post bilateral amputation presented to the emergency room with the complaints of left supraorbital and forehead rash/shingles for the last 4-5 days. Assessment and plan: #Dysphagia -Speech therapy recommended PEG placement -General surgery consulted, plan for placement Monday -several attempts made to place dobhoff, will try again today if unable to place will start PPN 11/28 -Need reevaluation by speech therapy and if the patient fails again, patient need PEG placement. General surgery is following. #Supraventricular tachycardia -new onset this hospitalization -s/p adenosine -PO metoprolol held due to dysphagia, continue PRN IV metoprolol -Cardiology following, assistance appreciated #Acute kidney injury on chronic kidney disease stage V now requiring hemodialysis -Permacath placement 11/25 -HD yesterday, will receive 2 more treatments daily -monitor renal function, avoid nephrotoxins -continue calcitrol -Nephrology following, assistance appreciated. Recommend Monday//Monday or as needed dialysis #Transaminitis -improving -GI signed off -likely secondary to hypotension #Herpes zoster/shingles[left upper supraorbital area and forehead] -continue Pain medications, local care, contact isolation -continue IV acyclovir, transition to oral once all the lesions are crusted -ID recommendations noted and appreciated -Patient needs ophthalmology evaluation upon discharge (no inpatient services available); patient vision not compromised at this time -Wound culture from face grew Pseudomonas aeruginosa which is pansensitive. Will follow with ID for the need for antibiotics. -Patient is not on IV acyclovir, spoke with ID and this is less and does not agree, physician agreed with acyclovir I will start it. 11/28 -Discussed with ID/Dr. Pablo and recommend no treatment for positive wound culture -Patient is on IV acyclovir, and can be switched to p.o. acyclovir once patient is able to eat. #Hyperkalemia; resolved -s/p Calcium gluconate, Kayexalate -will be addressed with dialysis #history of recurrent CVAs x5-6 #Severe dysarthria -residual right-sided hemiparesis -stable #History of of lupus -Continue supportive care #History of PAD (peripheral artery disease) #Bilateral lower extremity amputations -Bilateral LE amputations #Hypertension -BP medications held due to dysphagia -will resume with placement of dobhoff/PEG -PRN medications for now #Metabolic acidosis -Due to chronic kidney disease stage V -continue bicarbonate 11/28 -Improved with hemodialysis #Disposition -discharge to SNF/NH when clinically stable -Case management aware. History Interval history: Patient was seen and evaluated this morning Patient did not have any new complaints Patient wants to drink but speech therapy evaluated and wants to keep her n.p.o. Okay to have ice chips Hospitalist Physical - Physical exam Narrative exam: GENERAL: Well-developed well-nourished. In no acute distress. HEENT: Left orbit and upper part of face with scabbing healing zoster rash. NECK: Supple. CHEST/LUNGS: CTAB on room air HEART/CARDIOVASCULAR: Tachycardic. No murmur, rubs or gallops appreciated. ABDOMEN: +BS. NT/ND. NEURO: Dysarthria. EXTREMITIES: Right upper extremity contracted. Left BKA, right AKA. No cyanosis, clubbing or edema. PSYCH: Cooperative. - Constitutional Vitals: Temp Pulse Resp BP Pulse Ox 98.0 F 116 H 20 138/94 100 11/28/21 05:38 11/28/21 05:42 11/28/21 05:38 11/28/21 05:41 11/28/21 05:42 General appearance: Present: no acute distress, well-nourished, other (Shingles lesions slightly dry, patient is anxious) HEART Score - HEART Score Troponin: Troponin T 0.117 ng/mL (0.00-0.029) H* 11/25/21 07:56 Results - Labs CBC & Chem 7: 11/24/21 08:06 11/28/21 04:35 Labs: Laboratory Last Values WBC 6.6 K/mm3 (4.5-11.0) 11/24/21 08:06 RBC 3.66 M/mm3 (3.65-5.03) 11/24/21 08:06 Hgb 10.0 gm/dl (10.1-14.3) L 11/24/21 08:06 Hct 30.7 % (30.3-42.9) 11/24/21 08:06 MCV 84 fl (79-97) 11/24/21 08:06 MCH 27 pg (28-32) L 11/24/21 08:06 MCHC 33 % (30-34) 11/24/21 08:06 RDW 15.1 % (13.2-15.2) 11/24/21 08:06 Plt Count 197 K/mm3 (140-440) 11/24/21 08:06 Lymph % (Auto) 32.4 % (13.4-35.0) 11/24/21 08:06 Isabella % (Auto) 8.4 % (0.0-7.3) H 11/24/21 08:06 Eos % (Auto) 0.3 % (0.0-4.3) 11/24/21 08:06 Baso % (Auto) 0.5 % (0.0-1.8) 11/24/21 08:06 Lymph # (Auto) 2.2 K/mm3 (1.2-5.4) 11/24/21 08:06 Isabella # (Auto) 0.6 K/mm3 (0.0-0.8) 11/24/21 08:06 Eos # (Auto) 0.0 K/mm3 (0.0-0.4) 11/24/21 08:06 Baso # (Auto) 0.0 K/mm3 (0.0-0.1) 11/24/21 08:06 Seg Neutrophils % 58.4 % (40.0-70.0) 11/24/21 08:06 Seg Neutrophils # 3.9 K/mm3 (1.8-7.7) 11/24/21 08:06 PT 17.0 Sec. (12.2-14.9) H 11/20/21 23:52 INR 1.23 (0.87-1.13) H 11/20/21 23:52 Sodium 136 mmol/L (137-145) L 11/28/21 04:35 Potassium 3.4 mmol/L (3.6-5.0) L 11/28/21 04:35 Chloride 100.8 mmol/L (98-107) 11/28/21 04:35 Carbon Dioxide 18 mmol/L (22-30) L D 11/28/21 04:35 Anion Gap 21 mmol/L 11/28/21 04:35 BUN 16 mg/dL (7-17) 11/28/21 04:35 Creatinine 3.9 mg/dL (0.6-1.2) H 11/28/21 04:35 Estimated GFR 14 ml/min 11/28/21 04:35 BUN/Creatinine Ratio 4 % 11/28/21 04:35 Glucose 76 mg/dL (65-100) 11/28/21 04:35 POC Glucose 108 mg/dL (70-105) H 11/24/21 17:18 Calcium 7.1 mg/dL (8.4-10.2) L 11/28/21 04:35 Phosphorus 4.60 mg/dL (2.5-4.5) H 11/24/21 08:06 Magnesium 1.60 mg/dL (1.7-2.3) L 11/24/21 08:06 Total Bilirubin 0.40 mg/dL (0.1-1.2) 11/25/21 07:03 AST 82 units/L (5-40) H 11/25/21 07:03 ALT 181 units/L (7-56) H 11/25/21 07:03 Alkaline Phosphatase 82 units/L (35-129) 11/25/21 07:03 Total Creatine Kinase 176 units/L (30-135) H 11/25/21 07:56 CK-MB (CK-2) 2.0 ng/mL (0.0-4.0) 11/25/21 07:56 CK-MB (CK-2) Rel Index 1.1 (0-4) 11/25/21 07:56 Troponin T 0.117 ng/mL (0.00-0.029) H* 11/25/21 07:56 Total Protein 8.1 g/dL (6.3-8.2) 11/25/21 07:03 Albumin 2.9 g/dL (3.9-5) L 11/25/21 07:03 Albumin/Globulin Ratio 0.6 % 11/25/21 07:03 Triglycerides 155 mg/dL (2-149) H 11/24/21 08:06 Cholesterol 132 mg/dL (50-199) 11/24/21 08:06 LDL Cholesterol Direct 61 mg/dL (50-130) 11/24/21 08:06 HDL Cholesterol 21 mg/dL (40-59) L 11/24/21 08:06 Cholesterol/HDL Ratio 6.28 % 11/24/21 08:06 Coronavirus (PCR) Negative (Negative) 11/26/21 13:50 Hepatitis A IgM Ab Non-reactive (NonReactive) 11/25/21 07:03 Hep Bs Antigen Non-reactive (Negative) 11/25/21 07:03 Hep B Core IgM Ab Non-reactive (NonReactive) 11/25/21 07:03 Hepatitis C Antibody Non-reactive (NonReactive) 11/25/21 07:03 Microbiology: Microbiology 11/22/21 20:15 Face Wound Culture - Final Pseudomonas Aeruginosa Cherry/IV: Voiding Method External Female Catheter Active Medications - Current Medications Current Medications: Generic Name Dose Route Start Last Admin Trade Name Freq PRN Reason Stop Dose Admin Acetaminophen 650 mg 11/26/21 13:02 11/26/21 13:08 Acetaminophen [address] 650 mg Q4H PRN Administration Pain, Mild (1-3) Albuterol 2.5 mg 11/21/21 05:04 11/26/21 18:04 Albuterol 2.5 Mg/3 Ml Nebu IH 2.5 mg Q3HRT PRN Administration Shortness Of Breath Lipase/Protease/Amylase 1 each 11/24/21 14:04 Lipase 10,500/Protease 25,000/Amylase 43,750 (Units) Dr Alejo FEEDTUBE PRN PRN For Clogged Feeding Tube Calcitriol 0.5 mcg 11/22/21 11:00 11/27/21 10:34 Calcitriol 0.5 Mcg Cap PO Not Given QDAY JIMMY Calcium Acetate 1,334 mg 11/22/21 14:00 11/27/21 21:08 Calcium Acetate 667 Mg Cap PO Not Given TID JIMMY Famotidine 10 mg 11/26/21 10:00 11/27/21 21:11 Famotidine 20 Mg/2 Ml Inj IV 10 mg BID JIMMY Administration Heparin Sodium (Porcine) 5,000 unit 11/21/21 10:00 11/27/21 21:12 Heparin 5,000 Unit/1 Ml Vial SUB-Q 5,000 unit Q12HR JIMMY Administration Hydralazine HCl 20 mg 11/23/21 20:00 11/28/21 05:41 Hydralazine 20 Mg/1 Ml Inj IV Not Given Q8H JIMMY Dextrose/Sodium Chloride 1,000 mls @ 100 mls/hr 11/24/21 20:00 D5ns IV DIRECT JIMMY Sodium Chloride 100 mls @ 999 mls/hr 11/25/21 10:00 Nacl 0.9% IV SHIVA PRN Hypotension Acyclovir 375 mg/ Sodium 107.5 mls @ 100 mls/hr 11/27/21 20:00 11/27/21 20:46 Chloride IV 100 mls/hr QDAY JIMMY Administration Protocol Labetalol HCl 20 mg 11/23/21 00:38 11/27/21 20:46 Labetalol 20 Mg/4 Ml Inj IV 20 mg Q6HR PRN Administration SBP>170 Metoprolol Tartrate 5 mg 11/25/21 13:00 11/28/21 00:38 Metoprolol Tartrate 5 Mg/5 Ml Inj IV 5 mg Q6H JIMMY Administration Ondansetron HCl 4 mg 11/21/21 05:04 Ondansetron 4 Mg/2 Ml Inj IV Q8H PRN Nausea And Vomiting Oxycodone/Acetaminophen 1 tab 11/21/21 16:22 Oxycodone /Acetaminophen 5-325mg Tab PO Q6H PRN Pain, Moderate (4-6) Simple Syrup 15 ml 11/24/21 14:04 Simple Syrup 15 Ml FEEDTUBE PRN PRN Hypoglycemia Simple Syrup 30 ml 11/24/21 14:04 Simple Syrup 15 Ml FEEDTUBE PRN PRN Hypoglycemia Sodium Bicarbonate 1,950 mg 11/22/21 08:00 11/27/21 21:08 Sodium Bicarbonate 650 Mg Tab PO Not Given TID JIMMY Sodium Chloride 10 ml 11/21/21 10:00 11/27/21 21:11 Sodium Chloride 0.9% 10 Ml Flush Syringe IV 10 ml BID JIMMY Administration Sodium Chloride 10 ml 11/21/21 05:04 Sodium Chloride 0.9% 10 Ml Flush Syringe IV PRN PRN LINE FLUSH Nutrition/Malnutrition Assess - Dietary Evaluation Nutrition/Malnutrition Findings: Nutrition Notes Start: 11/22/21 11:42 Freq: Status: Active Protocol: Document 11/26/21 14:49 AURY (Rec: 11/26/21 14:54 AURY [id number]) Nutrition Notes Initial or Follow up Brief Note Current Diagnosis CKD (stage V CKD),Hypertension ,Stroke Other Pertinent Diagnosis Hyperkalemia, Lupus, Zoster, PAD, s/p Bilateral-[place], Metabolic Acidosis, .. Current Diet NPO (since 11/25 00:01). Height 5 ft 5 in Weight 74.843 kg Mobile Body Weight (kg) 56.81 BMI 27.4 Weight change and time frame No body weight change reported in 2 days. Weight Status Overweight Subjective/Other Information RD consult for routine F/U on TF tolerance/continuation. Pt is currently on NPO. Multiple attempts failed to place the Dobbhoff; general surgery consulted about PEG tube placement, according to Progress notes. Percent of energy/protein needs met: Pt currently on NPO. Nutrition Intervention Nutrition Support: On Hold. Follow-Up By: 11/29/21 Additional Comments When pertinent, start monitoring TF tolerance and BM .
[2021-11-28] MEDS: SODIUM BICARBONATE 650 MG TAB PO SCH ×2 (08:09→13:58)
[2021-11-28] MEDS: CALCIUM ACETATE 667 MG CAP PO SCH ×3 (08:09→22:44)
[2021-11-28] MEDS: SODIUM CHLORIDE 0.9% IV SCH (11:00)
[2021-11-28] MEDS: FAMOTIDINE 20 MG/2 ML INJ IV SCH ×2 (11:00→22:43)
[2021-11-28] MEDS: ACYCLOVIR IV SCH (11:00)
[2021-11-28] MEDS ORDERED: cloNIDine TTS 0.2 MG/24 HR PATCH TD SCH (11:00)
[2021-11-28] MEDS: HEPARIN 5,000 UNIT/1 ML VIAL SUB-Q SCH ×2 (11:01→22:43)
[2021-11-28] MEDS: HYDROmorphone 0.5 MG/0.5 ML INJ IV PRN ×2 (11:01→17:57)
[2021-11-28] MEDS: CALCITRIOL 0.5 MCG CAP PO SCH (11:02)
--- NOTE | 2021-11-28 14:19 | Progress Note ---
Assessment and Plan - Patient Problems (1) Paroxysmal supraventricular tachycardia Current Visit: Yes Status: Acute Plan to address problem: Echocardiogram shows well-preserved left ventricular systolic function, ejection fraction 50 to 55%. Continue scheduled metoprolol for management of paroxysmal narrow complex tachycardia. We will transition to oral metoprolol when patient is taking oral. Subjective Date of service: 11/28/21 Principal diagnosis: Shingles, sepsis, acute renal failure, PSVT Interval history: Patient is comfortable, no acute distress. No further SVT has been recorded on intravenous metoprolol. Today, there is a stable sinus rhythm at 95. Patient has also been started on hemodialysis. Objective Vital Signs Temp Pulse Resp BP Pulse Ox Pulse Ox 11/28/21 12:07 97.6 F 90 17 160/111 100 11/28/21 10:00 90 98 11/28/21 08:44 98.0 F 17 142/61 11/28/21 08:38 97.5 F L 17 195/102 11/28/21 08:37 88 195/102 100 11/28/21 05:42 116 H 100 11/28/21 05:41 138/94 11/28/21 05:38 98.0 F 20 138/94 11/28/21 00:38 89 147/88 11/28/21 00:18 88 100 11/28/21 00:14 98.1 F 18 147/88 11/27/21 22:00 98 11/27/21 20:46 97 H 149/84 11/27/21 20:15 123 H 98 11/27/21 20:09 98.6 F 22 149/84 11/27/21 16:10 98.0 F 18 179/114 11/27/21 15:40 98.9 F 20 147/120 100 11/27/21 15:15 89 119/98 11/27/21 15:00 89 106/57 11/27/21 14:45 93 H 154/105 11/27/21 14:30 82 161/97 - Physical Examination General: Cachectic HEENT: Positive: Other (Acute shingles rash overlying left upper forehead and periorbital area) Neck: Positive: neck supple Cardiac: Positive: Reg Rate and Rhythm Lungs: Positive: Decreased Breath Sounds Neuro: Positive: Weakness (Generalized lethargy) Abdomen: Positive: Soft Skin: Positive: Clear Extremities: Present: Other (Status post bilateral amputation) - Labs and Meds Comprehensive Metabolic Panel 11/28/21 Range/Units 04:35 Sodium 136 L (137-145) mmol/L Potassium 3.4 L (3.6-5.0) mmol/L Chloride 100.8 (98-107) mmol/L Carbon Dioxide 18 L D (22-30) mmol/L BUN 16 (7-17) mg/dL Creatinine 3.9 H (0.6-1.2) mg/dL Glucose 76 (65-100) mg/dL Calcium 7.1 L (8.4-10.2) mg/dL
[2021-11-28] MEDS: D5W/0.9% NACL 1,000 ML IV SCH (14:28)
[2021-11-28] MEDS: oxyCODONE /ACETAMINOPHEN 5-325MG TAB PO PRN (14:40)
--- NOTE | 2021-11-28 18:48 | Progress Note ---
Assessment and Plan Impression: * Stage V CKD --SCr 4.8mg/dL in Apr 2021 * Herpes zoster * Hyperkalemia * Metabolic acidosis * Secondary Hyperparathyroidism * Azotemia * Transaminitis * Hypertension Plan: * Patient with progression of chronic kidney disease. Patient well known to myself for CKD, has been refusing dialysis in generally but has stated "would do it" if needed. * Spoke with son at length during admission- given likely uremia, hyperkalemia, acidosis do feel that patient will benefit from initiation of dialysis at this time. Son agrees and would like to move forward with this as well, as patient herself is unable to make decisions (but as noted has stated would want dialysis in worst case scenario) * S/p permcath placement 11/26, started HD 11/26 per new start protocol (daily x3 days) to avoid dialysis disequilibrium, plan for HD // moving forward or prn * Can stop Na bicarbonate as acidosis should be managed with HD now * continue home calcitriol, calcium acetate * Antiviral per primary team, ID * Dose medications for renal function * Avoid potential nephrotoxins * AM labs * No family present today, did update lucie Sylvester via phone last on 11/27 Subjective Date of service: 11/28/21 Principal diagnosis: Shingles, sepsis, acute renal failure, PSVT Interval history: Patient drowsy but more awake this AM, resting in bed Objective - Exam Narrative Exam: General appearance: confused, ill appearing EENT: other (vesicular rash involving left eye, forehead, mandaeism; crusting lesions) Respiratory: Clear to Ascultation Heart: regular, S1S2 Gastrointestinal: Present: normal Integumentary: warm and dry Musculoskeletal: Present: other (bilateral LE amputation) - Vital Signs Vital signs: Vital Signs - 12hr 11/28/21 11/28/21 11/28/21 08:37 08:38 08:44 Temperature 97.5 F L 98.0 F Pulse Rate 88 Respiratory 17 17 Rate Blood Pressure 195/102 195/102 142/61 O2 Sat by Pulse 100 Oximetry 11/28/21 11/28/21 11/28/21 10:00 12:07 16:47 Temperature 97.6 F 97.5 F L Pulse Rate 90 90 Respiratory 17 18 Rate Blood Pressure 160/111 142/82 O2 Sat by Pulse 98 100 Oximetry - Lab 11/24/21 08:06 11/28/21 04:35 Most recent lab results Calcium 7.1 mg/dL (8.4-10.2) L 11/28/21 04:35 Phosphorus 4.60 mg/dL (2.5-4.5) H 11/24/21 08:06 Magnesium 1.60 mg/dL (1.7-2.3) L 11/24/21 08:06 Medications & Allergies - Medications Allergies/Adverse Reactions: Allergies peanut Allergy (Verified 11/24/21 13:01) Anaphylaxis morphine Adverse Reaction (Verified 11/24/21 13:01) Dizziness Pork/Porcine Containing Products Adverse Reaction (Verified 11/24/21 13:01) Swelling Home Medications: Home Medications Medication Instructions Recorded Confirmed Last Taken Type Metoprolol 100 mg PO DAILY 11/21/21 11/21/21 11/20/21 History Active Medications: Generic Name Dose Route Start Last Admin Trade Name Freq PRN Reason Stop Dose Admin Acetaminophen 650 mg 11/26/21 13:02 11/26/21 13:08 Acetaminophen 650 Mg Rect Supp [place] 650 mg Q4H PRN Administration Pain, Mild (1-3) Albuterol 2.5 mg 11/21/21 05:04 11/26/21 18:04 Albuterol 2.5 Mg/3 Ml Nebu IH 2.5 mg Q3HRT PRN Administration Shortness Of Breath Lipase/Protease/Amylase 1 each 11/24/21 14:04 Lipase 10,500/Protease 25,000/Amylase 43,750 (Units) Dr Alejo FEEDTUBE PRN PRN For Clogged Feeding Tube Calcitriol 0.5 mcg 11/22/21 11:00 11/28/21 11:02 Calcitriol 0.5 Mcg Cap PO Not Given QDAY JIMMY Calcium Acetate 1,334 mg 11/22/21 14:00 11/28/21 13:58 Calcium Acetate 667 Mg Cap PO Not Given TID JIMMY Clonidine HCl 0.2 mg 11/28/21 11:00 11/28/21 14:20 Clonidine Tts 0.2 Mg/24 Hr Patch TD 0.2 mg Mcnally JIMMY Administration Famotidine 10 mg 11/26/21 10:00 11/28/21 11:00 Famotidine 20 Mg/2 Ml Inj IV 10 mg BID JIMMY Administration Heparin Sodium (Porcine) 5,000 unit 11/21/21 10:00 11/28/21 11:01 Heparin 5,000 Unit/1 Ml Vial SUB-Q 5,000 unit Q12HR JIMMY Administration Hydralazine HCl 20 mg 11/23/21 20:00 11/28/21 14:20 Hydralazine 20 Mg/1 Ml Inj IV 20 mg Q8H JIMMY Administration Hydromorphone HCl 0.5 mg 11/28/21 10:33 11/28/21 17:57 Hydromorphone 0.5 Mg/0.5 Ml Inj IV 0.5 mg Q6H PRN Administration Pain , Severe (7-10) Dextrose/Sodium Chloride 1,000 mls @ 75 mls/hr 11/24/21 20:00 11/28/21 14:28 D5ns IV 75 mls/hr DIRECT JIMMY Administration Sodium Chloride 100 mls @ 999 mls/hr 11/25/21 10:00 Nacl 0.9% IV SHIVA PRN Hypotension Acyclovir 375 mg/ Sodium 107.5 mls @ 100 mls/hr 11/27/21 20:00 11/28/21 11:00 Chloride IV 100 mls/hr QDAY JIMMY Administration Protocol Labetalol HCl 20 mg 11/23/21 00:38 11/27/21 20:46 Labetalol 20 Mg/4 Ml Inj IV 20 mg Q6HR PRN Administration SBP>170 Metoprolol Tartrate 5 mg 11/25/21 13:00 11/28/21 18:42 Metoprolol Tartrate 5 Mg/5 Ml Inj IV 5 mg Q6H JIMMY Administration Ondansetron HCl 4 mg 11/21/21 05:04 Ondansetron 4 Mg/2 Ml Inj IV Q8H PRN Nausea And Vomiting Oxycodone/Acetaminophen 1 tab 11/21/21 16:22 11/28/21 14:40 Oxycodone /Acetaminophen 5-325mg Tab PO 1 tab Q6H PRN Administration Pain, Moderate (4-6) Simple Syrup 15 ml 11/24/21 14:04 Simple Syrup 15 Ml FEEDTUBE PRN PRN Hypoglycemia Simple Syrup 30 ml 11/24/21 14:04 Simple Syrup 15 Ml FEEDTUBE PRN PRN Hypoglycemia Sodium Bicarbonate 1,950 mg 11/22/21 08:00 11/28/21 13:58 Sodium Bicarbonate 650 Mg Tab PO Not Given TID JIMMY Sodium Chloride 10 ml 11/21/21 10:00 11/28/21 11:02 Sodium Chloride 0.9% 10 Ml Flush Syringe IV 10 ml BID JIMMY Administration Sodium Chloride 10 ml 11/21/21 05:04 Sodium Chloride 0.9% 10 Ml Flush Syringe IV PRN PRN LINE FLUSH
[2021-11-29] MEDS: METOPROLOL TARTRATE 5 MG/5 ML INJ IV SCH ×2 (00:03→08:01)
[2021-11-29] MEDS: oxyCODONE /ACETAMINOPHEN 5-325MG TAB PO PRN (00:07)
[2021-11-29] MEDS: hydrALAZINE 20 MG/1 ML INJ IV SCH ×3 (04:18→20:47)
[2021-11-29] MEDS: D5W/0.9% NACL 1,000 ML IV SCH (04:18)
[2021-11-29 06:18] LABS: Calcium 7.1 mg/dL (8.4-10.2)
[2021-11-29] MEDS: HYDROmorphone 0.5 MG/0.5 ML INJ IV PRN (08:01)
[2021-11-29] MEDS: CALCIUM ACETATE 667 MG CAP PO SCH ×3 (08:01→20:48)
[2021-11-29] MEDS: HEPARIN 5,000 UNIT/1 ML VIAL SUB-Q SCH ×2 (09:44→22:15)
[2021-11-29] MEDS: FAMOTIDINE 20 MG/2 ML INJ IV SCH ×2 (09:44→22:55)
[2021-11-29] MEDS: CALCITRIOL 0.5 MCG CAP PO SCH (09:45)
--- NOTE | 2021-11-29 10:29 | Progress Note ---
Assessment and Plan Impression: * Stage V CKD. Now progressed to ESRD --SCr 4.8mg/dL in Apr 2021 * Herpes zoster * Hyperkalemia * Metabolic acidosis * Secondary Hyperparathyroidism * Azotemia * Transaminitis * Hypertension Plan: * Status post PermCath placement on 11/26/2021 and initiation of dialysis. * Continue dialysis on TTS schedule going forward * Hyperkalemia and metabolic acidosis has been corrected * continue home calcitriol, calcium acetate * Antiviral per primary team, ID * Dose medications for renal function * Avoid potential nephrotoxins * AM labs * No family present today * Consult case management for outpatient dialysis placement Subjective Date of service: 11/29/21 Principal diagnosis: Shingles, sepsis, acute renal failure, PSVT Interval history: Patient is somewhat confused today. Denies any shortness of breath. Objective - Vital Signs Vital signs: Vital Signs - 12hr 11/28/21 11/29/21 11/29/21 23:48 05:51 05:52 Temperature 98.0 F 99.1 F Pulse Rate 145 H 138 H Respiratory 20 20 20 Rate Blood Pressure 156/108 223/124 O2 Sat by Pulse 95 100 Oximetry 11/29/21 07:46 Temperature Pulse Rate 127 H Respiratory Rate Blood Pressure 216/138 O2 Sat by Pulse 95 Oximetry - General Appearance General appearance: well-developed, well-nourished, appears stated age EENT: other (Skin lesion and scabs noted in the left side of her face and left periorbital area) Neck: no JVD, no thyromegaly, no carotid bruit, supple, other (Right IJ PermCath in place) Respiratory: Present: Clear to Ascultation Cardiology: regular Gastrointestinal: Integumentary: other (No edema. Right AKA and left BKA) - Lab 11/24/21 08:06 11/29/21 05:36 Most recent lab results Calcium 7.1 mg/dL (8.4-10.2) L 11/29/21 05:36 Phosphorus 4.60 mg/dL (2.5-4.5) H 11/24/21 08:06 Magnesium 1.60 mg/dL (1.7-2.3) L 11/24/21 08:06 Medications & Allergies - Medications Allergies/Adverse Reactions: Allergies peanut Allergy (Verified 11/24/21 13:01) Anaphylaxis morphine Adverse Reaction (Verified 11/24/21 13:01) Dizziness Pork/Porcine Containing Products Adverse Reaction (Verified 11/24/21 13:01) Swelling Home Medications: Home Medications Medication Instructions Recorded Confirmed Last Taken Type Metoprolol 100 mg PO DAILY 11/21/21 11/21/21 11/20/21 History Active Medications: Generic Name Dose Route Start Last Admin Trade Name Freq PRN Reason Stop Dose Admin Acetaminophen 650 mg 11/26/21 13:02 11/26/21 13:08 Acetaminophen 650 Mg Rect Supp [place] 650 mg Q4H PRN Administration Pain, Mild (1-3) Albuterol 2.5 mg 11/21/21 05:04 11/26/21 18:04 Albuterol 2.5 Mg/3 Ml Nebu IH 2.5 mg Q3HRT PRN Administration Shortness Of Breath Lipase/Protease/Amylase 1 each 11/24/21 14:04 Lipase 10,500/Protease 25,000/Amylase 43,750 (Units) Dr Alejo FEEDTUBE PRN PRN For Clogged Feeding Tube Calcitriol 0.5 mcg 11/22/21 11:00 11/29/21 09:45 Calcitriol 0.5 Mcg Cap PO Not Given QDAY JIMMY Calcium Acetate 1,334 mg 11/22/21 14:00 11/29/21 08:01 Calcium Acetate 667 Mg Cap PO Not Given TID JIMMY Clonidine HCl 0.2 mg 11/28/21 11:00 11/28/21 14:20 Clonidine Tts 0.2 Mg/24 Hr Patch TD 0.2 mg Mcnally JIMMY Administration Famotidine 10 mg 11/26/21 10:00 11/29/21 09:44 Famotidine 20 Mg/2 Ml Inj IV 10 mg BID JIMMY Administration Heparin Sodium (Porcine) 5,000 unit 11/21/21 10:00 11/29/21 09:44 Heparin 5,000 Unit/1 Ml Vial SUB-Q 5,000 unit Q12HR JIMMY Administration Hydralazine HCl 20 mg 11/23/21 20:00 11/29/21 04:18 Hydralazine 20 Mg/1 Ml Inj IV 20 mg Q8H JIMMY Administration Hydromorphone HCl 0.5 mg 11/28/21 10:33 11/29/21 08:01 Hydromorphone 0.5 Mg/0.5 Ml Inj IV 0.5 mg Q6H PRN Administration Pain , Severe (7-10) Sodium Chloride 100 mls @ 999 mls/hr 11/25/21 10:00 Nacl 0.9% IV SHIVA PRN Hypotension Acyclovir 375 mg/ Sodium 107.5 mls @ 100 mls/hr 11/27/21 20:00 11/28/21 19:59 Chloride IV Infused QDAY JIMMY Infusion Protocol Labetalol HCl 20 mg 11/23/21 00:38 11/29/21 05:58 Labetalol 20 Mg/4 Ml Inj IV 20 mg Q6HR PRN Administration SBP>170 Metoprolol Tartrate 5 mg 11/25/21 13:00 11/29/21 08:01 Metoprolol Tartrate 5 Mg/5 Ml Inj IV 5 mg Q6H JIMMY Administration Ondansetron HCl 4 mg 11/21/21 05:04 Ondansetron 4 Mg/2 Ml Inj IV Q8H PRN Nausea And Vomiting Oxycodone/Acetaminophen 1 tab 11/21/21 16:22 11/29/21 00:07 Oxycodone /Acetaminophen 5-325mg Tab PO 1 tab Q6H PRN Administration Pain, Moderate (4-6) Simple Syrup 15 ml 11/24/21 14:04 Simple Syrup 15 Ml FEEDTUBE PRN PRN Hypoglycemia Simple Syrup 30 ml 11/24/21 14:04 Simple Syrup 15 Ml FEEDTUBE PRN PRN Hypoglycemia Sodium Chloride 10 ml 11/21/21 10:00 11/29/21 09:45 Sodium Chloride 0.9% 10 Ml Flush Syringe IV 10 ml BID JIMMY Administration Sodium Chloride 10 ml 11/21/21 05:04 Sodium Chloride 0.9% 10 Ml Flush Syringe IV PRN PRN LINE FLUSH
--- NOTE | 2021-11-29 11:01 | Event Note ---
Date: 11/29/21 Pt chart reviewed. Patient underwent mechanical barium swallow today which showed - "an oral/pharyngeal phase dysphagia. Residuals noted in the valleculae space, however, with a second swallow, residue cleared. Laryngeal penetration was identified with thins." Speech therapy recommend a "pureed diet with nectar thickened liquids. Meds must be crushed. NO STRAWS." Will s/o.
[2021-11-29] MEDS: SODIUM CHLORIDE 0.9% IV SCH (11:21)
[2021-11-29] MEDS: ACYCLOVIR IV SCH (11:21)
--- NOTE | 2021-11-29 11:34 | Fluoroscopy Report ---
Modified barium swallow INDICATION: Dysphagia FINDINGS: Total fluoroscopy time 1.2 minutes. 2 fluoroscopic images. Penetration after thin barium jace th through straw and cup. [place] passed without difficulty. Applesauce appear normal. IMPRESSION: Penetration after thin barium. No aspiration. Normal swallowing after nectar and applesauce. Signer Name: Toney Dan MD Signed: 11/29/2021 11:26 AM Workstation Name: [id number]
--- NOTE | 2021-11-29 11:46 | Progress Note ---
Assessment and Plan Assessment and plan: 61-year-old with a history of chronic kidney disease, lupus, hypertension ,peripheral artery disease status post bilateral amputation presented to the emergency room with the complaints of left supraorbital and forehead rash/shingles for the last 4-5 days. #Dysphagia -Speech therapy recommended PEG placement -General surgery consulted, plan for placement Monday -several attempts made to place dobhoff, will try again today if unable to place will start PPN -Modified barium swallow (11/29/2021)patient can have pured diet with thick liquids. No need for PEG tube at this time. #Supraventricular tachycardiaresolved -new onset this hospitalization -s/p adenosine -PO metoprolol held due to dysphagia, continue PRN IV metoprolol -Cardiology following, assistance appreciated #ESRD on hemodialysis (newly diagnosed) -Permacath placement 11/25 -HD yesterday, will receive 2 more treatments daily -monitor renal function, avoid nephrotoxins -continue calcitrol -Nephrology following, assistance appreciated. Recommend Monday/ /Monday or as needed dialysis #Transaminitis -improving -GI signed off -likely secondary to hypotension #Herpes zoster/shingles[left upper supraorbital area and forehead] -continue Pain medications, local care, contact isolation -continue IV acyclovir, transition to oral once all the lesions are crusted -ID recommendations noted and appreciated -Patient needs ophthalmology evaluation upon discharge (no inpatient services available); patient vision not compromised at this time -Wound culture from face grew Pseudomonas aeruginosa which is pansensitive. Starting Levaquin 250 mg daily (renally dosed) x10 days (completes on 12/08/2021). -Patient is not on IV acyclovir, spoke with ID and this is less and does not agree, physician agreed with acyclovir I will start it. -Patient is on IV acyclovir, and can be switched to p.o. acyclovir once patient is able to eat. #Hyperkalemiaresolved -s/p Calcium gluconate, Kayexalate -will be addressed with dialysis #history of recurrent CVAs x5-6 #Severe dysarthria -residual right-sided hemiparesis -stable #History of of lupus -Continue supportive care #History of PAD (peripheral artery disease) #Bilateral lower extremity amputations -Bilateral LE amputations #Hypertension -BP medications held due to dysphagia -will resume with placement of dobhoff/PEG -PRN medications for now #Metabolic acidosisresolved -Due to chronic kidney disease stage V -continue bicarbonate #Discharge planning - Patient is pending initiation of antibiotics. - Case management has been made aware. - Discharge is tentatively discharging home tomorrow. Disposition Plan: Continue medical management Total Time Spent with Patient (Minutes): 45 minutes History Interval history: No acute events overnight. Hospitalist Physical - Constitutional Vitals: Temp Pulse Resp BP Pulse Ox 99.1 F 119 H 20 153/110 94 11/29/21 05:51 11/29/21 11:31 11/29/21 05:52 11/29/21 11:31 11/29/21 11:31 General appearance: Present: no acute distress, well-nourished, other (Crusted zoster shingles over left eye and V1 distribution. Purulence discharge around left eye and from open wounds associated with zoster.) - EENT Eyes: Present: PERRL, EOM intact, discharge (Purulent discharge from left eye and surrounding tissues) ENT: hearing intact, clear oral mucosa, dentition normal - Neck Neck: Present: supple, normal ROM - Respiratory Respiratory effort: normal Respiratory: bilateral: diminished (on 3L nasal cannula) - Cardiovascular Rhythm: regular Heart Sounds: Present: S1 & S2 - Extremities Extremities: no ischemia, pulses intact, pulses symmetrical, No edema, normal temperature, normal color Peripheral Pulses: within normal limits - Abdominal General gastrointestinal: soft, non-tender, non-distended, normal bowel sounds - Integumentary Integumentary: Present: clear, warm, dry - Psychiatric Psychiatric: appropriate mood/affect, cooperative - Neurologic Neurologic: CNII-XII intact - Allied Health Allied health notes reviewed: nursing HEART Score - HEART Score Troponin: Troponin T 0.117 ng/mL (0.00-0.029) H* 11/25/21 07:56 Results - Labs CBC & Chem 7: 11/24/21 08:06 11/29/21 05:36 Labs: Laboratory Last Values WBC 6.6 K/mm3 (4.5-11.0) 11/24/21 08:06 RBC 3.66 M/mm3 (3.65-5.03) 11/24/21 08:06 Hgb 10.0 gm/dl (10.1-14.3) L 11/24/21 08:06 Hct 30.7 % (30.3-42.9) 11/24/21 08:06 MCV 84 fl (79-97) 11/24/21 08:06 MCH 27 pg (28-32) L 11/24/21 08:06 MCHC 33 % (30-34) 11/24/21 08:06 RDW 15.1 % (13.2-15.2) 11/24/21 08:06 Plt Count 197 K/mm3 (140-440) 11/24/21 08:06 Lymph % (Auto) 32.4 % (13.4-35.0) 11/24/21 08:06 [place] % (Auto) 8.4 % (0.0-7.3) H 11/24/21 08:06 Eos % (Auto) 0.3 % (0.0-4.3) 11/24/21 08:06 Baso % (Auto) 0.5 % (0.0-1.8) 11/24/21 08:06 Lymph # (Auto) 2.2 K/mm3 (1.2-5.4) 11/24/21 08:06 [place] # (Auto) 0.6 K/mm3 (0.0-0.8) 11/24/21 08:06 Eos # (Auto) 0.0 K/mm3 (0.0-0.4) 11/24/21 08:06 Baso # (Auto) 0.0 K/mm3 (0.0-0.1) 11/24/21 08:06 Seg Neutrophils % 58.4 % (40.0-70.0) 11/24/21 08:06 Seg Neutrophils # 3.9 K/mm3 (1.8-7.7) 11/24/21 08:06 PT 17.0 Sec. (12.2-14.9) H 11/20/21 23:52 INR 1.23 (0.87-1.13) H 11/20/21 23:52 Sodium 141 mmol/L (137-145) 11/29/21 05:36 Potassium 3.6 mmol/L (3.6-5.0) 11/29/21 05:36 Chloride 102.6 mmol/L (98-107) 11/29/21 05:36 Carbon Dioxide 22 mmol/L (22-30) 11/29/21 05:36 Anion Gap 20 mmol/L 11/29/21 05:36 BUN 24 mg/dL (7-17) H 11/29/21 05:36 Creatinine 5.4 mg/dL (0.6-1.2) H 11/29/21 05:36 Estimated GFR 10 ml/min 11/29/21 05:36 BUN/Creatinine Ratio 4 % 11/29/21 05:36 Glucose 122 mg/dL (65-100) H 11/29/21 05:36 POC Glucose 108 mg/dL (70-105) H 11/24/21 17:18 Calcium 7.1 mg/dL (8.4-10.2) L 11/29/21 05:36 Phosphorus 4.60 mg/dL (2.5-4.5) H 11/24/21 08:06 Magnesium 1.60 mg/dL (1.7-2.3) L 11/24/21 08:06 Total Bilirubin 0.40 mg/dL (0.1-1.2) 11/25/21 07:03 AST 82 units/L (5-40) H 11/25/21 07:03 ALT 181 units/L (7-56) H 11/25/21 07:03 Alkaline Phosphatase 82 units/L (35-129) 11/25/21 07:03 Total Creatine Kinase 176 units/L (30-135) H 11/25/21 07:56 CK-MB (CK-2) 2.0 ng/mL (0.0-4.0) 11/25/21 07:56 CK-MB (CK-2) Rel Index 1.1 (0-4) 11/25/21 07:56 Troponin T 0.117 ng/mL (0.00-0.029) H* 11/25/21 07:56 Total Protein 8.1 g/dL (6.3-8.2) 11/25/21 07:03 Albumin 2.9 g/dL (3.9-5) L 11/25/21 07:03 Albumin/Globulin Ratio 0.6 % 11/25/21 07:03 Triglycerides 155 mg/dL (2-149) H 11/24/21 08:06 Cholesterol 132 mg/dL (50-199) 11/24/21 08:06 LDL Cholesterol Direct 61 mg/dL (50-130) 11/24/21 08:06 HDL Cholesterol 21 mg/dL (40-59) L 11/24/21 08:06 Cholesterol/HDL Ratio 6.28 % 11/24/21 08:06 Coronavirus (PCR) Negative (Negative) 11/26/21 13:50 Hepatitis A IgM Ab Non-reactive (NonReactive) 11/25/21 07:03 Hep Bs Antigen Non-reactive (Negative) 11/25/21 07:03 Hep B Core IgM Ab Non-reactive (NonReactive) 11/25/21 07:03 Hepatitis C Antibody Non-reactive (NonReactive) 11/25/21 07:03 Cherry/IV: Voiding Method External Female Catheter Active Medications - Current Medications Current Medications: Generic Name Dose Route Start Last Admin Trade Name Freq PRN Reason Stop Dose Admin Acetaminophen 650 mg 11/26/21 13:02 11/26/21 13:08 Acetaminophen 650 Mg Rect Supp [place] 650 mg Q4H PRN Administration Pain, Mild (1-3) Albuterol 2.5 mg 11/21/21 05:04 11/26/21 18:04 Albuterol 2.5 Mg/3 Ml Nebu IH 2.5 mg Q3HRT PRN Administration Shortness Of Breath Lipase/Protease/Amylase 1 each 11/24/21 14:04 Lipase 10,500/Protease 25,000/Amylase 43,750 (Units) Dr Alejo FEEDTUBE PRN PRN For Clogged Feeding Tube Calcitriol 0.5 mcg 11/22/21 11:00 11/29/21 09:45 Calcitriol 0.5 Mcg Cap PO Not Given QDAY JIMMY Calcium Acetate 1,334 mg 11/22/21 14:00 11/29/21 08:01 Calcium Acetate 667 Mg Cap PO Not Given TID JIMMY Clonidine HCl 0.2 mg 11/28/21 11:00 11/28/21 14:20 Clonidine Tts 0.2 Mg/24 Hr Patch TD 0.2 mg Mcnally JIMMY Administration Famotidine 10 mg 11/26/21 10:00 11/29/21 09:44 Famotidine 20 Mg/2 Ml Inj IV 10 mg BID JIMMY Administration Heparin Sodium (Porcine) 5,000 unit 11/21/21 10:00 11/29/21 09:44 Heparin 5,000 Unit/1 Ml Vial SUB-Q 5,000 unit Q12HR JIMMY Administration Hydralazine HCl 20 mg 11/23/21 20:00 11/29/21 11:21 Hydralazine 20 Mg/1 Ml Inj IV 20 mg Q8H JIMMY Administration Hydromorphone HCl 0.5 mg 11/28/21 10:33 11/29/21 08:01 Hydromorphone 0.5 Mg/0.5 Ml Inj IV 0.5 mg Q6H PRN Administration Pain , Severe (7-10) Sodium Chloride 100 mls @ 999 mls/hr 11/25/21 10:00 Nacl 0.9% IV SHIVA PRN Hypotension Acyclovir 375 mg/ Sodium 107.5 mls @ 100 mls/hr 11/27/21 20:00 11/29/21 11:21 Chloride IV 100 mls/hr QDAY [facility] Administration Protocol Levofloxacin/Dextrose 250 mg in 50 mls @ 50 mls/hr 11/29/21 12:00 Levaquin 250mg/50ml IV 11/29/21 12:59 Q24H [facility] Protocol Labetalol HCl 20 mg 11/23/21 00:38 11/29/21 05:58 Labetalol 20 Mg/4 Ml Inj IV 20 mg Q6HR PRN Administration SBP>170 Levofloxacin 250 mg 11/30/21 10:00 Levofloxacin 250 Mg Tab PO 12/08/21 10:01 Q24HR [facility] Protocol Metoprolol Tartrate 25 mg 11/29/21 22:00 Metoprolol Tartrate 25 Mg Tab PO BID [facility] Ondansetron HCl 4 mg 11/21/21 05:04 Ondansetron 4 Mg/2 Ml Inj IV Q8H PRN Nausea And Vomiting Oxycodone/Acetaminophen 1 tab 11/21/21 16:22 11/29/21 00:07 Oxycodone /Acetaminophen 5-325mg Tab PO 1 tab Q6H PRN Administration Pain, Moderate (4-6) Simple Syrup 15 ml 11/24/21 14:04 Simple Syrup 15 Ml FEEDTUBE PRN PRN Hypoglycemia Simple Syrup 30 ml 11/24/21 14:04 Simple Syrup 15 Ml FEEDTUBE PRN PRN Hypoglycemia Sodium Chloride 10 ml 11/21/21 10:00 11/29/21 09:45 Sodium Chloride 0.9% 10 Ml Flush Syringe IV 10 ml BID JIMMY Administration Sodium Chloride 10 ml 11/21/21 05:04 Sodium Chloride 0.9% 10 Ml Flush Syringe IV PRN PRN LINE FLUSH Nutrition/Malnutrition Assess - Dietary Evaluation Nutrition/Malnutrition Findings: Nutrition Notes Start: 11/22/21 11:42 Freq: Status: Active Protocol: Document 11/26/21 14:49 AURY (Rec: 11/26/21 14:54 AURY [id number]) Nutrition Notes Initial or Follow up Brief Note Current Diagnosis CKD (stage V CKD),Hypertension ,Stroke Other Pertinent Diagnosis Hyperkalemia, Lupus, Zoster, PAD, s/p Bilateral-[place], Metabolic Acidosis, .. Current Diet NPO (since 11/25 00:01). Height 5 ft 5 in Weight 74.843 kg [place] Body Weight (kg) 56.81 BMI 27.4 Weight change and time frame No body weight change reported in 2 days. Weight Status Overweight Subjective/Other Information RD consult for routine F/U on TF tolerance/continuation. Pt is currently on NPO. Multiple attempts failed to place the Dobbhoff; general surgery consulted about PEG tube placement, according to Progress notes. Percent of energy/protein needs met: Pt currently on NPO. Nutrition Intervention Nutrition Support: On Hold. Follow-Up By: 11/29/21 Additional Comments When pertinent, start monitoring TF tolerance and BM .
--- NOTE | 2021-11-29 14:20 | Progress Note ---
Assessment and Plan - Patient Problems (1) Paroxysmal supraventricular tachycardia Current Visit: Yes Status: Acute Plan to address problem: Echocardiogram shows well-preserved left ventricular systolic function, ejection fraction 50 to 55%. Continue scheduled metoprolol for management of paroxysmal narrow complex tachycardia. We will transition to oral metoprolol when patient is taking oral. Subjective Date of service: 11/29/21 Principal diagnosis: Shingles, sepsis, acute renal failure, PSVT Interval history: Patient is comfortable, no acute distress. No further SVT has been recorded on intravenous metoprolol. Today, there is a sinus tachycardia at 125. Patient's ability to take food and medications orally has also improved. Objective Vital Signs Temp Pulse Resp BP BP Pulse Ox 11/29/21 11:31 119 H 153/110 94 11/29/21 10:00 98 11/29/21 07:46 127 H 216/138 95 11/29/21 05:52 138 H 20 100 11/29/21 05:51 99.1 F 20 223/124 11/28/21 23:48 98.0 F 145 H 20 156/108 95 11/28/21 22:00 98 11/28/21 19:49 98.3 F 95 H 18 170/97 96 11/28/21 16:47 97.5 F L 18 142/82 - Physical Examination General: Cachectic HEENT: Positive: Other (Acute shingles rash overlying left upper forehead and periorbital area) Neck: Positive: neck supple Cardiac: Positive: Regular Rhythm Lungs: Positive: Decreased Breath Sounds Neuro: Positive: Weakness (Generalized lethargy) Abdomen: Positive: Soft Skin: Positive: Clear Extremities: Present: Other (Status post bilateral amputation) - Labs and Meds Comprehensive Metabolic Panel 11/29/21 Range/Units 05:36 Sodium 141 (137-145) mmol/L Potassium 3.6 (3.6-5.0) mmol/L Chloride 102.6 (98-107) mmol/L Carbon Dioxide 22 (22-30) mmol/L BUN 24 H (7-17) mg/dL Creatinine 5.4 H (0.6-1.2) mg/dL Glucose 122 H (65-100) mg/dL Calcium 7.1 L (8.4-10.2) mg/dL
[2021-11-29] MEDS: METOPROLOL TARTRATE 50 MG TAB PO SCH ×2 (15:40→22:56)
--- NOTE | 2021-11-29 17:46 | Cat Scan Report ---
CT HEAD WITHOUT CONTRAST INDICATION / CLINICAL INFORMATION: Unresponsive. TECHNIQUE: All CT scans at this location are performed using CT dose reduction for ALARA by means of automated e xposure control. COMPARISON: Head CT 11/23/2021 FINDINGS: HEMORRHAGE: No evidence of intracranial hemorrhage or extra-axial fluid collection. EXTRA-AXIAL SPACES: Cortical sulci, sylvian fissures and basilar cisterns have an unremarkable appear ance. VENTRICULAR SYSTEM: The third and lateral ventricles are of normal size and configuration. CEREBRAL PARENCHYMA: Encephalomalacia is observed in involving portions of the superior and middle gy ri of the left frontal lobe extending back into the parietal region. This is secondary to remote left MCA infarction. Encephalomalacia is also observed in a right ganglia capsular distribution compatibl e with remote small deep infarction in this location. There is evidence of remote small deep infarcti on involving right putamen and subinsular region. This is unchanged. Similar findings were present on previous study. Physiological calcifications are seen in a bilateral gangliocapsular distribution. MIDLINE SHIFT OR HERNIATION: There is no mass effect. CEREBELLUM / BRAINSTEM: There is evidence of remote large pontine infarction lateralizing to the left the midline unchanged. Brainstem has an otherwise unremarkable appearance. Extensive calcification o f the dentate nuclei is observed bilaterally. This is likely a physiological basis. MIDLINE STRUCTURES:No abnormalities of the pituitary gland or pineal region are identified. Incidenta l note is made of a dilated partially fluid-filled sella turcica consistent with "empty sella turcica ". INTRACRANIAL VESSELS: Extensively calcified atherosclerotic plaque is seen along the course the kailee nous segments of both internal carotid arteries extending up into the clinoid segments bilaterally. E xtensively calcified atherosclerotic plaque is present at the V4 segments of both vertebral arteries. Calcified plaque is seen in several locations along the course of the basilar artery. ORBITS: visualized portions of the orbits have an unremarkable appearance. SOFT TISSUES of HEAD: No significant abnormality. CALVARIUM: Evaluation of bone windows reveals no abnormalities. PARANASAL SINUSES / MASTOID AIR CELLS: Visualized portions of the paranasal sinuses are free from inf lammatory mucosal disease. Mastoid air cells are normally pneumatized. ADDITIONAL FINDINGS: None. IMPRESSION: 1. Remote left MCA infarction and multiple remote small deep infarctions. These findings are unchange d. 2. Remote pontine infarction, unchanged. 3. Physiological calcification is observed in the gangliocapsular regions and dentate nuclei bilatera lly. 4. No acute intracranial abnormality is identified. There is no interval change when compared to rece nt previous study 11/23/2021. Signer Name: Morro Mendieta MD Signed: 11/29/2021 5:41 PM Workstation Name: [id number]
[2021-11-29] MEDS ORDERED: hydrALAZINE 20 MG/1 ML INJ IV ONE (18:00)
--- NOTE | 2021-11-29 19:16 | Progress Note ---
Assessment and Plan Cultures: None A/P: 61-year-old female past medical history CKD not on HD, hypertension, lupus, PAD, bilateral lower extremity amputations #Facial shingles: Appears to be in V1 of the trigeminal nerve. This is a sensory nerve, not usually associated with retinal necrosis. #MARCUS on CKD: Renally dose medications. Unfortunately she needs acyclovir due to the above. She is pending initiation of HD. Recs: -Acyclovir held due to son's request due to AMS. -Once resolved from acute infection, would recommend outpatient shingles vaccine -Outpatient ophthalmology evaluation Thank you for the consult, we will continue to follow. Javid Pablo MD [facility] ([facility]) O: [phone] F: [phone] Subjective Date of service: 11/29/21 Principal diagnosis: Shingles, sepsis, acute renal failure, PSVT Interval history: Afebrile, no acute change. Imaging personally reviewed: Head CT: Previous infarctions, calcifications. Objective - Exam Narrative Exam: Physical Exam: Constitutional: Alert, cooperative. No acute distress Head, Ears, Nose: Normocephalic, atraumatic. External ears, nose normal Eyes: Conjunctivae/corneas clear. No icterus. No ptosis. Neck: Supple, no meningeal signs Oral: dentition fair, no thrush Cardiovascular: S1, S2 normal. Respiratory: Good air entry, clear to auscultation bilaterally GI: Soft, non-tender; bowel sounds normal. No peritoneal signs. Musculoskeletal: No pedal edema, no cyanosis. Skin: Left-sided facial shingles. Negative Archer sign Hem/Lymphatic: No palpable cervical or supraclavicular nodes. No lymphangitis Psych: Mood ok. Affect normal Neurological: Awake, alert, oriented. No gross abnormality - Constitutional Vitals: Vital Signs Temp Pulse Resp BP Pulse Ox 99.1 F 119 H 20 153/110 94 11/29/21 05:51 11/29/21 11:31 11/29/21 05:52 11/29/21 11:31 11/29/21 11:31 Temperature -Last 24 Hours Temperature 99.1 F Temperature 98.0 F Temperature 98.3 F - Labs CBC & Chem 7: 11/24/21 08:06 11/29/21 05:36 Labs: Abnormal lab results 11/29/21 Range/Units 05:36 BUN 24 H (7-17) mg/dL Creatinine 5.4 H (0.6-1.2) mg/dL Glucose 122 H (65-100) mg/dL Calcium 7.1 L (8.4-10.2) mg/dL
[2021-11-29] MEDS ORDERED: METOPROLOL TARTRATE 25 MG TAB PO SCH (22:00)
[2021-11-29] MEDS: DOXAZOSIN 1 MG TAB PO SCH (22:54)
[2021-11-30 01:28] LABS: Basophils % (Auto) 0.4 % (0.0-1.8); Eosinophils # (Auto) 0.1 K/mm3 (0.0-0.4); Eosinophils % (Auto) 2.3 % (0.0-4.3); Hematocrit 28.2 % (30.3-42.9); Hemoglobin 9.1 gm/dl (10.1-14.3); Lymphocytes # (Auto) 0.9 K/mm3 (1.2-5.4); Mean Corpuscular HGB Conc 32 % (30-34); Mean Corpuscular Volume 86 fl (79-97); Monocytes # (Auto) 0.6 K/mm3 (0.0-0.8); Platelet Count 165 K/mm3 (140-440); Red Blood Count 3.28 M/mm3 (3.65-5.03); Red Cell Distribution Width 14.9 % (13.2-15.2)
[2021-11-30 01:34] LABS: Calcium 7.1 mg/dL (8.4-10.2)
[2021-11-30] MEDS: hydrALAZINE 20 MG/1 ML INJ IV SCH (06:54)
[2021-11-30] MEDS ORDERED: AMIODARONE 150 MG in DEXTROSE 5% IN WATER 97 ML IV ONE (07:30)
[2021-11-30] MEDS ORDERED: AMIODARONE 900 MG in DEXTROSE 5% IN WATER 482 ML IV SCH (08:00)
[2021-11-30] MEDS: METOPROLOL TARTRATE 50 MG TAB PO SCH ×3 (08:27→22:48)
[2021-11-30] MEDS: POTASSIUM CHLORIDE 10 MEQ 10 MEQ/100 ML BAG IV SCH ×4 (08:27→13:09)
--- NOTE | 2021-11-30 09:24 | Progress Note ---
Assessment and Plan Impression: * Stage V CKD. Now progressed to ESRD --SCr 4.8mg/dL in Apr 2021 * Herpes zoster * Hyperkalemia * Metabolic acidosis * Secondary Hyperparathyroidism * Azotemia * Transaminitis * Hypertension Plan: * Status post PermCath placement on 11/26/2021 and initiation of dialysis. * Continue dialysis on TTS schedule for now * Hyperkalemia and metabolic acidosis has been corrected * continue home calcitriol, calcium acetate * Antiviral per primary team, ID * Dose medications for renal function * Avoid potential nephrotoxins * No family present today * Consult case management for outpatient dialysis placement Subjective Date of service: 11/30/21 Principal diagnosis: Shingles, sepsis, acute renal failure, PSVT Interval history: Patient is awake and alert. Appears less confused today. Denies any shortness of breath. Objective - Vital Signs Vital signs: Vital Signs - 12hr 11/29/21 11/29/21 11/29/21 22:00 22:54 22:56 Temperature Pulse Rate 99 H 99 H Respiratory Rate Blood Pressure 138/81 138/81 Blood Pressure [Left] O2 Sat by Pulse 98 Oximetry 11/29/21 11/30/21 11/30/21 23:37 00:08 03:40 Temperature 98.6 F 98.2 F 97.7 F Pulse Rate 99 H 94 H 97 H Respiratory 20 18 20 Rate Blood Pressure 178/99 Blood Pressure 138/81 136/82 [Left] O2 Sat by Pulse 98 99 99 Oximetry 11/30/21 11/30/21 11/30/21 06:54 07:59 08:27 Temperature 97.6 F Pulse Rate 97 H 91 H 133 H Respiratory Rate Blood Pressure 178/99 185/98 Blood Pressure [Left] O2 Sat by Pulse 92 Oximetry - General Appearance General appearance: well-developed, well-nourished, appears stated age EENT: PERRL, mucous membranes moist, other (Lesions noted in the left side of her face especially left periorbital area) Neck: no JVD, no thyromegaly, no carotid bruit, supple, other (Right IJ PermCath in place) Respiratory: Present: Clear to Ascultation Cardiology: regular, normal heart rate, S1S2, no murmurs Gastrointestinal: normal, normoactive bowel sounds Integumentary: other (Right AKA and left BKA) - Lab 11/29/21 23:54 11/29/21 23:54 Most recent lab results Calcium 7.1 mg/dL (8.4-10.2) L 11/29/21 23:54 Phosphorus 4.60 mg/dL (2.5-4.5) H 11/24/21 08:06 Magnesium 1.60 mg/dL (1.7-2.3) L 11/24/21 08:06 Medications & Allergies - Medications Allergies/Adverse Reactions: Allergies peanut Allergy (Verified 11/24/21 13:01) Anaphylaxis morphine Adverse Reaction (Verified 11/24/21 13:01) Dizziness Pork/Porcine Containing Products Adverse Reaction (Verified 11/24/21 13:01) Swelling Home Medications: Home Medications Medication Instructions Recorded Confirmed Last Taken Type Metoprolol 100 mg PO DAILY 11/21/21 11/21/21 11/20/21 History Active Medications: Generic Name Dose Route Start Last Admin Trade Name Freq PRN Reason Stop Dose Admin Acetaminophen 650 mg 11/26/21 13:02 11/26/21 13:08 Acetaminophen 650 Mg Rect Supp [place] 650 mg Q4H PRN Administration Pain, Mild (1-3) Albuterol 2.5 mg 11/21/21 05:04 11/26/21 18:04 Albuterol 2.5 Mg/3 Ml Nebu IH 2.5 mg Q3HRT PRN Administration Shortness Of Breath Lipase/Protease/Amylase 1 each 11/24/21 14:04 Lipase 10,500/Protease 25,000/Amylase 43,750 (Units) Dr Alejo FEEDTUBE PRN PRN For Clogged Feeding Tube Calcitriol 0.5 mcg 11/22/21 11:00 11/29/21 09:45 Calcitriol 0.5 Mcg Cap PO Not Given QDAY JIMMY Calcium Acetate 1,334 mg 11/22/21 14:00 11/29/21 20:48 Calcium Acetate 667 Mg Cap PO 1,334 mg TID JIMMY Administration Clonidine HCl 0.2 mg 11/28/21 11:00 11/28/21 14:20 Clonidine Tts 0.2 Mg/24 Hr Patch TD 0.2 mg Mcnally JIMMY Administration Doxazosin Mesylate 2 mg 11/29/21 22:00 11/29/21 22:54 Doxazosin 1 Mg Tab PO 2 mg BID JIMMY Administration Famotidine 10 mg 11/26/21 10:00 11/29/21 22:55 Famotidine 20 Mg/2 Ml Inj IV 10 mg BID JIMMY Administration Heparin Sodium (Porcine) 5,000 unit 11/21/21 10:00 11/29/21 22:15 Heparin 5,000 Unit/1 Ml Vial SUB-Q 5,000 unit Q12HR JIMMY Administration Hydralazine HCl 20 mg 11/23/21 20:00 11/30/21 06:54 Hydralazine 20 Mg/1 Ml Inj IV 20 mg Q8H JIMMY Administration Hydromorphone HCl 0.5 mg 11/28/21 10:33 11/29/21 08:01 Hydromorphone 0.5 Mg/0.5 Ml Inj IV 0.5 mg Q6H PRN Administration Pain , Severe (7-10) Sodium Chloride 100 mls @ 999 mls/hr 11/25/21 10:00 Nacl 0.9% IV SHIVA PRN Hypotension Potassium Chloride 10 meq in 100 mls @ 100 mls/hr 11/30/21 08:00 11/30/21 08:27 Kcl 10meq/100ml IV 11/30/21 11:59 100 mls/hr Q1H JIMMY Administration Amiodarone HCl 900 mg/ 500 mls @ 33.333 mls/hr 11/30/21 08:00 11/30/21 08:38 Dextrose IV 1 mg/min DIRECT JIMMY 33.333 mls/hr Administration Protocol 1 MG/MIN Labetalol HCl 20 mg 11/23/21 00:38 11/29/21 14:12 Labetalol 20 Mg/4 Ml Inj IV 20 mg Q6HR PRN Administration SBP>170 Levofloxacin 250 mg 11/30/21 10:00 Levofloxacin 250 Mg Tab PO 12/08/21 10:01 Q24HR JIMMY Protocol Metoprolol Tartrate 50 mg 11/29/21 15:00 11/30/21 08:27 Metoprolol Tartrate 50 Mg Tab PO 50 mg Q8H JIMMY Administration Ondansetron HCl 4 mg 11/21/21 05:04 Ondansetron 4 Mg/2 Ml Inj IV Q8H PRN Nausea And Vomiting Oxycodone/Acetaminophen 1 tab 11/21/21 16:22 11/29/21 00:07 Oxycodone /Acetaminophen 5-325mg Tab PO 1 tab Q6H PRN Administration Pain, Moderate (4-6) Simple Syrup 15 ml 11/24/21 14:04 Simple Syrup 15 Ml FEEDTUBE PRN PRN Hypoglycemia Simple Syrup 30 ml 11/24/21 14:04 Simple Syrup 15 Ml FEEDTUBE PRN PRN Hypoglycemia Sodium Chloride 10 ml 11/21/21 10:00 11/29/21 22:56 Sodium Chloride 0.9% 10 Ml Flush Syringe IV 10 ml BID JIMMY Administration Sodium Chloride 10 ml 11/21/21 05:04 Sodium Chloride 0.9% 10 Ml Flush Syringe IV PRN PRN LINE FLUSH
[2021-11-30] MEDS ORDERED: levoFLOXacin 250 MG TAB PO SCH (10:00)
[2021-11-30] MEDS: DOXAZOSIN 1 MG TAB PO SCH ×2 (10:00→22:48)
[2021-11-30] MEDS: AMIODARONE 200 MG TAB PO SCH ×2 (10:15→22:48)
--- NOTE | 2021-11-30 10:55 | Progress Note ---
Assessment and Plan - Patient Problems (1) Paroxysmal supraventricular tachycardia Current Visit: Yes Status: Acute Plan to address problem: Echocardiogram shows well-preserved left ventricular systolic function, ejection fraction 50 to 55%. Continue scheduled metoprolol for management of paroxysmal narrow complex tachycardia. It is noted that in addition to SVT, some of her telemetry strips suggest the presence of intermittent atrial fibrillation. Continue oral metoprolol, transition amiodarone to oral. Ultimately if there are no contraindications, she may benefit from low-dose NOAC. (2) Elevated troponin Current Visit: Yes Status: Acute Plan to address problem: The troponin levels have been persistently elevated, largely unchanged on multiple measurements at 0.2 to 0.3. It is likely nonspecific finding in the setting of end-stage renal failure. The patient has had no symptoms of angina or acute coronary syndrome. Subjective Date of service: 11/30/21 Principal diagnosis: Shingles, sepsis, acute renal failure, PSVT Interval history: Patient is comfortable in no acute distress, it is reported that early this morning she was started on intravenous amiodarone. A review of her telemetry strips showed that there is the possible presence of intermittent atrial fibrillation. Patient has currently returned to a stable sinus rhythm at 85. Objective Vital Signs Temp Pulse Resp BP BP Pulse Ox 11/30/21 08:27 133 H 11/30/21 07:59 97.6 F 91 H 185/98 92 11/30/21 06:54 97 H 178/99 11/30/21 03:40 97.7 F 97 H 20 178/99 99 11/30/21 00:08 98.2 F 94 H 18 136/82 99 11/29/21 23:37 98.6 F 99 H 20 138/81 98 11/29/21 22:56 99 H 138/81 11/29/21 22:54 99 H 138/81 11/29/21 22:00 98 11/29/21 20:47 96 H 148/91 11/29/21 20:11 98.1 F 96 H 20 148/91 100 11/29/21 16:48 105 H 190/109 98 11/29/21 15:51 113 H 100 11/29/21 11:31 119 H 153/110 94 - Physical Examination General: Cachectic HEENT: Positive: Other (Acute shingles rash overlying left upper forehead and periorbital area) Neck: Positive: neck supple Cardiac: Positive: Reg Rate and Rhythm Lungs: Positive: Decreased Breath Sounds Neuro: Positive: Weakness (Generalized lethargy) Abdomen: Positive: Soft Skin: Positive: Clear Extremities: Present: Other (Status post bilateral amputation) - Labs and Meds CBC 11/29/21 Range/Units 23:54 WBC 4.4 L (4.5-11.0) K/mm3 RBC 3.28 L (3.65-5.03) M/mm3 Hgb 9.1 L (10.1-14.3) gm/dl Hct 28.2 L (30.3-42.9) % Plt Count 165 (140-440) K/mm3 Lymph # (Auto) 0.9 L (1.2-5.4) K/mm3 [place] # (Auto) 0.6 (0.0-0.8) K/mm3 Eos # (Auto) 0.1 (0.0-0.4) K/mm3 Baso # (Auto) 0.0 (0.0-0.1) K/mm3 Comprehensive Metabolic Panel 11/29/21 Range/Units 23:54 Sodium 138 (137-145) mmol/L Potassium 3.3 L (3.6-5.0) mmol/L Chloride 103.0 (98-107) mmol/L Carbon Dioxide 21 L (22-30) mmol/L BUN 29 H (7-17) mg/dL Creatinine 6.5 H (0.6-1.2) mg/dL Glucose 87 (65-100) mg/dL Calcium 7.1 L (8.4-10.2) mg/dL
[2021-11-30] MEDS ORDERED: levoFLOXacin 500 MG TAB PO SCH (11:00)
[2021-11-30] MEDS: amLODIPine 10 MG TAB PO SCH (11:00)
[2021-11-30] MEDS ORDERED: SODIUM CHLORIDE 0.9% 100 ML IV PRN (14:17)
--- NOTE | 2021-11-30 14:31 | Progress Note ---
Assessment and Plan Assessment and plan: 61-year-old with a history of chronic kidney disease, lupus, hypertension ,peripheral artery disease status post bilateral amputation presented to the emergency room with the complaints of left supraorbital and forehead rash/shingles for the last 4-5 days. #Dysphagia -Speech therapy recommended PEG placement -General surgery consulted, plan for placement Monday -several attempts made to place dobhoff, will try again today if unable to place will start PPN -Modified barium swallow (11/29/2021)patient can have pured diet with thick liquids. No need for PEG tube at this time. #Supraventricular tachycardia #Atrial fibrillation with RVR -new onset this hospitalization -s/p adenosine -Continue metoprolol tartrate 50 mg every 8 hours. Started on amiodarone bolus and transition to p.o. amiodarone 200 mg twice daily (per cardiology) in the setting of A. fib with RVR versus SVT -Cardiology following, assistance appreciated #ESRD on hemodialysis (newly diagnosed) -Permacath placement 11/25 -HD yesterday, will receive 2 more treatments daily -monitor renal function, avoid nephrotoxins -continue calcitrol -Nephrology following, assistance appreciated. Recommend Monday//Monday or as needed dialysis #Transaminitis -improving -GI signed off -likely secondary to hypotension #Herpes zoster/shingles[left upper supraorbital area and forehead] -continue Pain medications, local care, contact isolation -continue IV acyclovir, transition to oral once all the lesions are crusted -ID recommendations noted and appreciated -Patient needs ophthalmology evaluation upon discharge (no inpatient services available); patient vision not compromised at this time -Wound culture from face grew Pseudomonas aeruginosa which is pansensitive. Starting Levaquin 250 mg daily (renally dosed) x10 days (completes on 12/08/2021). -Patient is not on IV acyclovir, spoke with ID and this is less and does not agree, physician agreed with acyclovir I will start it. -Patient is on IV acyclovir, and can be switched to p.o. acyclovir once patient is able to eat. #Hyperkalemiaresolved -s/p Calcium gluconate, Kayexalate -will be addressed with dialysis #history of recurrent CVAs x5-6 #Severe dysarthria -residual right-sided hemiparesis -stable #History of of lupus -Continue supportive care #History of PAD (peripheral artery disease) #Bilateral lower extremity amputations -Bilateral LE amputations #Hypertension -BP medications held due to dysphagia -will resume with placement of dobhoff/PEG -PRN medications for now #Metabolic acidosisresolved -Due to chronic kidney disease stage V -continue bicarbonate #Discharge planning - Patient is pending resolution of SVT versus A. fib with RVR - Case management has been made aware. - Discharge is tentatively discharging home tomorrow. Disposition Plan: Pending possible discharge home tomorrow Total Time Spent with Patient (Minutes): 45 min History Interval history: No acute events overnight. Hospitalist Physical - Constitutional Vitals: Temp Pulse Resp BP Pulse Ox 98.2 F 100 H 18 151/95 98 11/30/21 14:15 11/30/21 14:15 11/30/21 14:15 11/30/21 14:15 11/30/21 14:15 General appearance: Present: no acute distress, well-nourished, other (Crusted zoster shingles over left eye and V1 distribution. Purulence discharge around left eye and from open wounds associated with zoster.) - EENT Eyes: Present: PERRL, EOM intact ENT: hearing intact, clear oral mucosa, dentition normal - Neck Neck: Present: supple, normal ROM - Respiratory Respiratory effort: normal Respiratory: bilateral: CTA - Cardiovascular Rhythm: regular Heart Sounds: Present: S1 & S2 - Extremities Extremities: no ischemia, pulses intact, pulses symmetrical, No edema, normal temperature, normal color Peripheral Pulses: within normal limits - Abdominal General gastrointestinal: soft, non-tender, non-distended, normal bowel sounds - Integumentary Integumentary: Present: clear, warm, dry - Psychiatric Psychiatric: appropriate mood/affect, cooperative - Neurologic Neurologic: CNII-XII intact - Allied Health Allied health notes reviewed: nursing HEART Score - HEART Score Troponin: Troponin T 0.299 ng/mL (0.00-0.029) H* 11/30/21 07:47 Results - Labs CBC & Chem 7: 11/29/21 23:54 11/29/21 23:54 Labs: Laboratory Last Values WBC 4.4 K/mm3 (4.5-11.0) L 11/29/21 23:54 RBC 3.28 M/mm3 (3.65-5.03) L 11/29/21 23:54 Hgb 9.1 gm/dl (10.1-14.3) L 11/29/21 23:54 Hct 28.2 % (30.3-42.9) L 11/29/21 23:54 MCV 86 fl (79-97) 11/29/21 23:54 MCH 28 pg (28-32) 11/29/21 23:54 MCHC 32 % (30-34) 11/29/21 23:54 RDW 14.9 % (13.2-15.2) 11/29/21 23:54 Plt Count 165 K/mm3 (140-440) 11/29/21 23:54 Lymph % (Auto) 21.0 % (13.4-35.0) 11/29/21 23:54 [place] % (Auto) 13.0 % (0.0-7.3) H 11/29/21 23:54 Eos % (Auto) 2.3 % (0.0-4.3) 11/29/21 23:54 Baso % (Auto) 0.4 % (0.0-1.8) 11/29/21 23:54 Lymph # (Auto) 0.9 K/mm3 (1.2-5.4) L 11/29/21 23:54 [place] # (Auto) 0.6 K/mm3 (0.0-0.8) 11/29/21 23:54 Eos # (Auto) 0.1 K/mm3 (0.0-0.4) 11/29/21 23:54 Baso # (Auto) 0.0 K/mm3 (0.0-0.1) 11/29/21 23:54 Seg Neutrophils % 63.3 % (40.0-70.0) 11/29/21 23:54 Seg Neutrophils # 2.8 K/mm3 (1.8-7.7) 11/29/21 23:54 PT 17.0 Sec. (12.2-14.9) H 11/20/21 23:52 INR 1.23 (0.87-1.13) H 11/20/21 23:52 Sodium 138 mmol/L (137-145) 11/29/21 23:54 Potassium 3.3 mmol/L (3.6-5.0) L 11/29/21 23:54 Chloride 103.0 mmol/L (98-107) 11/29/21 23:54 Carbon Dioxide 21 mmol/L (22-30) L 11/29/21 23:54 Anion Gap 17 mmol/L 11/29/21 23:54 BUN 29 mg/dL (7-17) H 11/29/21 23:54 Creatinine 6.5 mg/dL (0.6-1.2) H 11/29/21 23:54 Estimated GFR 8 ml/min 11/29/21 23:54 BUN/Creatinine Ratio 4 % 11/29/21 23:54 Glucose 87 mg/dL (65-100) 11/29/21 23:54 POC Glucose 98 mg/dL (70-105) 11/29/21 16:52 Calcium 7.1 mg/dL (8.4-10.2) L 11/29/21 23:54 Phosphorus 4.60 mg/dL (2.5-4.5) H 11/24/21 08:06 Magnesium 1.60 mg/dL (1.7-2.3) L 11/24/21 08:06 Total Bilirubin 0.40 mg/dL (0.1-1.2) 11/25/21 07:03 AST 82 units/L (5-40) H 11/25/21 07:03 ALT 181 units/L (7-56) H 11/25/21 07:03 Alkaline Phosphatase 82 units/L (35-129) 11/25/21 07:03 Total Creatine Kinase 176 units/L (30-135) H 11/25/21 07:56 CK-MB (CK-2) 2.0 ng/mL (0.0-4.0) 11/25/21 07:56 CK-MB (CK-2) Rel Index 1.1 (0-4) 11/25/21 07:56 Troponin T 0.299 ng/mL (0.00-0.029) H* 11/30/21 07:47 Total Protein 8.1 g/dL (6.3-8.2) 11/25/21 07:03 Albumin 2.9 g/dL (3.9-5) L 11/25/21 07:03 Albumin/Globulin Ratio 0.6 % 11/25/21 07:03 Triglycerides 155 mg/dL (2-149) H 11/24/21 08:06 Cholesterol 132 mg/dL (50-199) 11/24/21 08:06 LDL Cholesterol Direct 61 mg/dL (50-130) 11/24/21 08:06 HDL Cholesterol 21 mg/dL (40-59) L 11/24/21 08:06 Cholesterol/HDL Ratio 6.28 % 11/24/21 08:06 Coronavirus (PCR) Negative (Negative) 11/26/21 13:50 SARS-CoV-2 (PCR) Negative (Negative) 11/29/21 11:35 Hepatitis A IgM Ab Non-reactive (NonReactive) 11/25/21 07:03 Hep Bs Antigen Non-reactive (Negative) 11/25/21 07:03 Hep B Core IgM Ab Non-reactive (NonReactive) 11/25/21 07:03 Hepatitis C Antibody Non-reactive (NonReactive) 11/25/21 07:03 Microbiology: Microbiology 11/29/21 23:54 Peripheral/Venous Blood Culture - Preliminary Culture in Progress 11/29/21 23:54 Peripheral/Venous Blood Culture - Preliminary Culture in Progress Cherry/IV: Voiding Method External Female Catheter Active Medications - Current Medications Current Medications: Generic Name Dose Route Start Last Admin Trade Name Freq PRN Reason Stop Dose Admin Acetaminophen 650 mg 11/26/21 13:02 11/26/21 13:08 Acetaminophen 650 Mg Rect Supp [place] 650 mg Q4H PRN Administration Pain, Mild (1-3) Albuterol 2.5 mg 11/21/21 05:04 11/26/21 18:04 Albuterol 2.5 Mg/3 Ml Nebu IH 2.5 mg Q3HRT PRN Administration Shortness Of Breath Amiodarone HCl 200 mg 11/30/21 11:00 11/30/21 10:15 Amiodarone 200 Mg Tab PO 200 mg BID JIMMY Administration Amlodipine Besylate 10 mg 11/30/21 11:00 Amlodipine 10 Mg Tab PO QDAY JIMMY Apixaban 2.5 mg 11/30/21 22:00 Apixaban 2.5 Mg Tab PO Q12HR JIMMY Protocol Calcitriol 0.5 mcg 11/22/21 11:00 11/29/21 09:45 Calcitriol 0.5 Mcg Cap PO Not Given QDAY [facility] Calcium Acetate 1,334 mg 11/22/21 14:00 11/29/21 20:48 Calcium Acetate 667 Mg Cap PO 1,334 mg TID JIMMY Administration Doxazosin Mesylate 2 mg 11/29/21 22:00 11/29/21 22:54 Doxazosin 1 Mg Tab PO 2 mg BID JIMMY Administration Famotidine 10 mg 11/30/21 22:00 Famotidine 10 Mg Tab PO BID [facility] Hydralazine HCl 25 mg 11/30/21 15:00 Hydralazine 25 Mg Tab PO Q8HR [facility] Hydromorphone HCl 0.5 mg 11/28/21 10:33 11/29/21 08:01 Hydromorphone 0.5 Mg/0.5 Ml Inj IV 0.5 mg Q6H PRN Administration Pain , Severe (7-10) Sodium Chloride 100 mls @ 999 mls/hr 11/25/21 10:00 Nacl 0.9% IV SHIVA PRN Hypotension Sodium Chloride 100 mls @ 999 mls/hr 11/30/21 14:17 Nacl 0.9% IV SHIVA PRN Hypotension Labetalol HCl 20 mg 11/23/21 00:38 11/29/21 14:12 Labetalol 20 Mg/4 Ml Inj IV 20 mg Q6HR PRN Administration SBP>170 Levofloxacin 500 mg 11/30/21 11:00 Levofloxacin 500 Mg Tab PO 12/16/21 10:01 Q48HR [facility] Protocol Metoprolol Tartrate 50 mg 11/29/21 15:00 11/30/21 08:27 Metoprolol Tartrate 50 Mg Tab PO 50 mg Q8H JIMMY Administration Ondansetron HCl 4 mg 11/21/21 05:04 Ondansetron 4 Mg/2 Ml Inj IV Q8H PRN Nausea And Vomiting Oxycodone/Acetaminophen 1 tab 11/21/21 16:22 11/29/21 00:07 Oxycodone /Acetaminophen 5-325mg Tab PO 1 tab Q6H PRN Administration Pain, Moderate (4-6) Sodium Chloride 10 ml 11/21/21 10:00 11/29/21 22:56 Sodium Chloride 0.9% 10 Ml Flush Syringe IV 10 ml BID JIMMY Administration Sodium Chloride 10 ml 11/21/21 05:04 Sodium Chloride 0.9% 10 Ml Flush Syringe IV PRN PRN LINE FLUSH Nutrition/Malnutrition Assess - Dietary Evaluation Nutrition/Malnutrition Findings: Nutrition Notes Start: 11/22/21 11:42 Freq: Status: Active Protocol: Document 11/29/21 15:45 AURY (Rec: 11/29/21 16:12 AURY [email or web address]) Nutrition Notes Initial or Follow up Brief Note Current Diagnosis CKD(stage I-IV),Hypertension, Stroke Other Pertinent Diagnosis ESRD+HD, Lupus, Zoster, PAD, s /p Bilateral-[place], Metabolic Acidosis, .. Current Diet Cardiac -Renal, Pureed, [place] -like Liquids- Diet (since L 11/29). Labs/Tests 11/29: BUN 24, Crea 5.4, Glu 122. Height 5 ft 5 in Weight 75.4 kg [place] Body Weight (kg) 56.81 BMI 27.6 Weight change and time frame 0.557 Kg body weight gain reported in 3 days. Weight Status Overweight Subjective/Other Information RD consult for routine F/U on Dietary Advancement. Diet advanced to PO modifies according to AUTISTIC TEACHER recommendations, no reports available on Pt's PO intake of meals at the time, will assess at F/U. AUTISTIC TEACHER note on 11/29/21 10:55: MBS has been conducted. Patient demonstrates an oral/ pharyngeal phase dysphagia. Residuals noted in the valleculae space, however, with a second swallow, residue cleared. Laryngeal penetration was identified with thins. Recommend a pureed diet with nectar thickened liquids. Meds must be crushed. NO STRAWS. Informed the patient and her nurse. - END OF NOTE. Pt is on Room Air, O2 saturation @ 98%, according to Physical Assessment History notes. PermaCath placed on 11/25 na d Pt started HD, well tolerated , according to Progress notes. Percent of energy/protein needs met: Prescribed Cardiac -Renal, Pureed, [place]-Like Liquids- Diet provides for energy/ protein needs (2,230 Kcal/85 g ) during LOS. #2 Nutrition Diagnosis Swallowing difficulty Comments: AUTISTIC TEACHER note on 11/29/21 10:55: MBS has been conducted. Patient demonstrates an oral/ pharyngeal phase dysphagia. Residuals noted in the valleculae space, however, with a second swallow, residue cleared. Laryngeal penetration was identified with thins. Recommend a pureed diet with nectar thickened liquids. Meds must be crushed. NO STRAWS. Informed the patient and her nurse. - END OF NOTE. Diagnosis Progress(for reassessment Improved documentation) #1 Nutrition Diagnosis Altered nutrition-related laboratory values Comments: 11/29: BUN 24, Crea 5.4, Glu 122. PermaCath placed on 11/25 na d Pt started HD, well tolerated , according to Progress notes. Diagnosis Progress(for reassessment Improved documentation) Is patient on ventilator? No Is Patient Ambulatory and/or Out of Bed No REE-(Secretary-St. Jeor-confined to bed) [phone] Calculation Used for Recommendations Secretary-St Jeor Additional Notes Protein: 0.6-0.8 g/Kg ABW; 45- 60 g/day. Fluids: 1 ml/Kcal, or as per MD. Nutrition Intervention Change Diet Order: Start Cardiac -Renal, Pureed, [place]-like Liquids- Diet Nutrition Support: Discontinued. Goal #1 Facilitate PO intake of meals with elemental, textural, or mechanical modification during LOS. Goal #2 Help reach and maintain acceptable chemistry lab values during LOS. Follow-Up By: 12/06/21 Additional Comments Continue monitoring food tolerance, %PO intake of meals , and BM.
[2021-11-30 16:22] LABS: INR 2.48 (0.87-1.13)
[2021-11-30 16:35] LABS: Partial Thromboplastin Time 85.1 Sec. (24.2-36.6)
[2021-11-30] MEDS: CALCITRIOL 0.5 MCG CAP PO SCH (16:35)
[2021-11-30] MEDS: hydrALAZINE 25 MG TAB PO SCH ×2 (16:37→22:48)
--- NOTE | 2021-11-30 17:10 | Progress Note ---
Assessment and Plan Cultures: None A/P: 61-year-old female past medical history CKD not on HD, hypertension, lupus, PAD, bilateral lower extremity amputations #Facial shingles: Appears to be in V1 of the trigeminal nerve. This is a sensory nerve, not usually associated with retinal necrosis. #MARCUS on CKD: Renally dose medications. Unfortunately she needs acyclovir due to the above. She is pending initiation of HD. Recs: -Acyclovir held due to son's request due to AMS. Can give Valtrex on DC for simpler dosing. Would give for 5 days after lesions have crusted -Once resolved from acute infection, would recommend outpatient shingles vaccine -Outpatient ophthalmology evaluation Thank you for the consult, we will continue to follow. Javid Pablo MD [facility] ([facility]) O: [phone] F: [phone] Subjective Date of service: 11/30/21 Principal diagnosis: Shingles, sepsis, acute renal failure, PSVT Interval history: Afebrile, white count 4.4. Blood cultures no growth so far. Objective - Exam Narrative Exam: Physical Exam: Constitutional: Alert, cooperative. No acute distress Head, Ears, Nose: Normocephalic, atraumatic. External ears, nose normal Eyes: Conjunctivae/corneas clear. No icterus. No ptosis. Neck: Supple, no meningeal signs Oral: dentition fair, no thrush Cardiovascular: S1, S2 normal. Respiratory: Good air entry, clear to auscultation bilaterally GI: Soft, non-tender; bowel sounds normal. No peritoneal signs. Musculoskeletal: No pedal edema, no cyanosis. Skin: Left-sided facial shingles. Negative Archer sign Hem/Lymphatic: No palpable cervical or supraclavicular nodes. No lymphangitis Psych: Mood ok. Affect normal Neurological: Awake, alert, oriented. No gross abnormality - Constitutional Vitals: Vital Signs Temp Pulse Resp BP Pulse Ox 97.9 F 112 H 18 113/87 100 11/30/21 15:44 11/30/21 15:44 11/30/21 14:15 11/30/21 15:44 11/30/21 15:44 Temperature -Last 24 Hours Temperature 97.9 F Temperature 98.2 F Temperature 98.6 F Temperature 98.2 F Temperature 97.6 F Temperature 97.7 F Temperature 98.2 F Temperature 98.6 F Temperature 98.1 F - Labs CBC & Chem 7: 11/29/21 23:54 11/30/21 Unknown Labs: Abnormal lab results 11/29/21 11/29/21 11/30/21 Range/Units 23:54 23:54 07:47 WBC 4.4 L (4.5-11.0) K/mm3 RBC 3.28 L (3.65-5.03) M/mm3 Hgb 9.1 L (10.1-14.3) gm/dl Hct 28.2 L (30.3-42.9) % Kay % (Auto) 13.0 H (0.0-7.3) % Lymph # (Auto) 0.9 L (1.2-5.4) K/mm3 PT (12.2-14.9) Sec. INR (0.87-1.13) APTT (24.2-36.6) Sec. Potassium 3.3 L (3.6-5.0) mmol/L Carbon Dioxide 21 L (22-30) mmol/L BUN 29 H (7-17) mg/dL Creatinine 6.5 H (0.6-1.2) mg/dL Calcium 7.1 L (8.4-10.2) mg/dL Troponin T 0.350 H* D 0.299 H* (0.00-0.029) ng/mL 11/30/21 11/30/21 Range/Units Unknown Unknown WBC (4.5-11.0) K/mm3 RBC (3.65-5.03) M/mm3 Hgb (10.1-14.3) gm/dl Hct (30.3-42.9) % Kay % (Auto) (0.0-7.3) % Lymph # (Auto) (1.2-5.4) K/mm3 PT 30.1 H (12.2-14.9) Sec. INR 2.48 H (0.87-1.13) APTT 85.1 H* (24.2-36.6) Sec. Potassium (3.6-5.0) mmol/L Carbon Dioxide (22-30) mmol/L BUN (7-17) mg/dL Creatinine 3.4 H (0.6-1.2) mg/dL Calcium (8.4-10.2) mg/dL Troponin T (0.00-0.029) ng/mL
[2021-11-30 18:22] LABS: Hematocrit 28.1 % (30.3-42.9); Mean Corpuscular HGB Conc 32 % (30-34); Mean Corpuscular Volume 86 fl (79-97); Platelet Count 125 K/mm3 (140-440); Red Blood Count 3.25 M/mm3 (3.65-5.03); Red Cell Distribution Width 14.7 % (13.2-15.2)
[2021-11-30] MEDS: CALCIUM ACETATE 667 MG CAP PO SCH ×2 (22:35→22:36)
[2021-11-30] MEDS: APIXABAN 2.5 MG TAB PO SCH (22:48)
[2021-11-30] MEDS: FAMOTIDINE 10 MG TAB PO SCH (22:48)
[2021-11-30] MEDS: oxyCODONE /ACETAMINOPHEN 5-325MG TAB PO PRN (22:49)
[2021-12-01] MEDS: hydrALAZINE 25 MG TAB PO SCH ×2 (05:45→13:35)
[2021-12-01] MEDS: CALCIUM ACETATE 667 MG CAP PO SCH ×2 (07:54→13:35)
[2021-12-01] MEDS: METOPROLOL TARTRATE 50 MG TAB PO SCH ×2 (07:54→15:02)
--- NOTE | 2021-12-01 09:14 | Progress Note ---
Assessment and Plan Impression: * Stage V CKD. Now progressed to ESRD --SCr 4.8mg/dL in Apr 2021 * Herpes zoster * Hyperkalemia * Metabolic acidosis * Secondary Hyperparathyroidism * Azotemia * Transaminitis * Hypertension Plan: * Status post PermCath placement on 11/26/2021 and initiation of dialysis. * Continue dialysis on TTS schedule for now, due tomorrow * Hyperkalemia and metabolic acidosis has been corrected, now soft K, use 3K bath * continue home calcitriol, calcium acetate * Antiviral per primary team, ID * Dose medications for renal function * Avoid potential nephrotoxins * No family present today * Consult case management for outpatient dialysis placement appreciated, placed at Pending sale to [facility] Subjective Date of service: 12/01/21 Principal diagnosis: Shingles, sepsis, acute renal failure, PSVT Interval history: Appears more alert, oriented. Objective - Exam Narrative Exam: General appearance: well-developed, well-nourished, appears stated age EENT: PERRL, mucous membranes moist, other (Lesions noted in the left side of her face especially left periorbital area) Neck: no JVD, supple, other (Right IJ PermCath in place) Respiratory: Present: Clear to Ascultation Cardiology: regular, normal heart rate, S1S2, no murmurs Gastrointestinal: normal, normoactive bowel sounds Integumentary: other (Right AKA and left BKA) - Vital Signs Vital signs: Vital Signs - 12hr 11/30/21 12/01/21 12/01/21 22:00 05:38 07:54 Temperature 97.7 F Pulse Rate 82 86 Pulse Rate [ 90 From Monitor] Respiratory 18 Rate Blood Pressure 139/94 Blood Pressure 131/83 [Left] O2 Sat by Pulse 98 100 Oximetry 12/01/21 08:05 Temperature 97.7 F Pulse Rate 86 Pulse Rate [ From Monitor] Respiratory 16 Rate Blood Pressure Blood Pressure 139/94 [Left] O2 Sat by Pulse 100 Oximetry - Lab 11/30/21 17:22 11/30/21 Unknown Most recent lab results Calcium 7.1 mg/dL (8.4-10.2) L 11/29/21 23:54 Phosphorus 4.60 mg/dL (2.5-4.5) H 11/24/21 08:06 Magnesium 1.60 mg/dL (1.7-2.3) L 11/24/21 08:06 Medications & Allergies - Medications Allergies/Adverse Reactions: Allergies peanut Allergy (Verified 11/24/21 13:01) Anaphylaxis morphine Adverse Reaction (Verified 11/24/21 13:01) Dizziness Pork/Porcine Containing Products Adverse Reaction (Verified 11/24/21 13:01) Swelling Home Medications: Home Medications Medication Instructions Recorded Confirmed Last Taken Type Metoprolol 100 mg PO DAILY 11/21/21 11/21/21 11/20/21 History Active Medications: Generic Name Dose Route Start Last Admin Trade Name Freq PRN Reason Stop Dose Admin Acetaminophen 650 mg 11/26/21 13:02 11/26/21 13:08 Acetaminophen 650 Mg Rect Supp OR 650 mg Q4H PRN Administration Pain, Mild (1-3) Albuterol 2.5 mg 11/21/21 05:04 11/26/21 18:04 Albuterol 2.5 Mg/3 Ml Nebu IH 2.5 mg Q3HRT PRN Administration Shortness Of Breath Amiodarone HCl 200 mg 11/30/21 11:00 11/30/21 22:48 Amiodarone 200 Mg Tab PO 200 mg BID JIMMY Administration Amlodipine Besylate 10 mg 11/30/21 11:00 11/30/21 11:00 Amlodipine 10 Mg Tab PO Not Given QDAY JIMMY Apixaban 2.5 mg 11/30/21 22:00 11/30/21 22:48 Apixaban 2.5 Mg Tab PO 2.5 mg Q12HR JIMMY Administration Protocol Calcitriol 0.5 mcg 11/22/21 11:00 11/30/21 16:35 Calcitriol 0.5 Mcg Cap PO 0.5 mcg QDAY JIMMY Administration Calcium Acetate 1,334 mg 11/22/21 14:00 12/01/21 07:54 Calcium Acetate 667 Mg Cap PO 1,334 mg TID JIMMY Administration Doxazosin Mesylate 2 mg 11/29/21 22:00 11/30/21 22:48 Doxazosin 1 Mg Tab PO 2 mg BID JIMMY Administration Famotidine 10 mg 11/30/21 22:00 11/30/21 22:48 Famotidine 10 Mg Tab PO 10 mg BID JIMMY Administration Hydralazine HCl 25 mg 11/30/21 15:00 12/01/21 05:45 Hydralazine 25 Mg Tab PO 25 mg Q8HR JIMMY Administration Hydromorphone HCl 0.5 mg 11/28/21 10:33 11/29/21 08:01 Hydromorphone 0.5 Mg/0.5 Ml Inj IV 0.5 mg Q6H PRN Administration Pain , Severe (7-10) Sodium Chloride 100 mls @ 999 mls/hr 11/25/21 10:00 Nacl 0.9% IV SHIVA PRN Hypotension Sodium Chloride 100 mls @ 999 mls/hr 11/30/21 14:17 Nacl 0.9% IV SHIVA PRN Hypotension Labetalol HCl 20 mg 11/23/21 00:38 11/29/21 14:12 Labetalol 20 Mg/4 Ml Inj IV 20 mg Q6HR PRN Administration SBP>170 Levofloxacin 500 mg 11/30/21 11:00 11/30/21 16:36 Levofloxacin 500 Mg Tab PO 12/08/21 10:59 500 mg Q48HR JIMMY Administration Protocol Metoprolol Tartrate 50 mg 11/29/21 15:00 12/01/21 07:54 Metoprolol Tartrate 50 Mg Tab PO 50 mg Q8H JIMMY Administration Ondansetron HCl 4 mg 11/21/21 05:04 11/30/21 22:59 Ondansetron 4 Mg/2 Ml Inj IV 4 mg Q8H PRN Administration Nausea And Vomiting Oxycodone/Acetaminophen 1 tab 11/21/21 16:22 11/30/21 22:49 Oxycodone /Acetaminophen 5-325mg Tab PO 1 tab Q6H PRN Administration Pain, Moderate (4-6) Sodium Chloride 10 ml 11/21/21 10:00 11/30/21 22:52 Sodium Chloride 0.9% 10 Ml Flush Syringe IV 10 ml BID JIMMY Administration Sodium Chloride 10 ml 11/21/21 05:04 Sodium Chloride 0.9% 10 Ml Flush Syringe IV PRN PRN LINE FLUSH
[2021-12-01] MEDS: amLODIPine 10 MG TAB PO SCH (10:53)
[2021-12-01] MEDS: DOXAZOSIN 1 MG TAB PO SCH (10:53)
[2021-12-01] MEDS: APIXABAN 2.5 MG TAB PO SCH (10:53)
[2021-12-01] MEDS: FAMOTIDINE 10 MG TAB PO SCH (10:54)
[2021-12-01] MEDS: CALCITRIOL 0.5 MCG CAP PO SCH (10:54)
[2021-12-01] MEDS: AMIODARONE 200 MG TAB PO SCH (10:54)
--- NOTE | 2021-12-01 13:29 | Progress Note ---
Assessment and Plan - Patient Problems (1) Paroxysmal supraventricular tachycardia Current Visit: Yes Status: Acute Plan to address problem: Echocardiogram shows well-preserved left ventricular systolic function, ejection fraction 50 to 55%. Continue scheduled metoprolol for management of paroxysmal narrow complex tachycardia. It is noted that in addition to SVT, some of her telemetry strips suggest the presence of intermittent atrial fibrillation. Continue oral metoprolol, amiodarone and oral anticoagulation. (2) Elevated troponin Current Visit: Yes Status: Acute Plan to address problem: The troponin levels have been persistently elevated, largely unchanged on multiple measurements at 0.2 to 0.3. It is likely nonspecific finding in the setting of end-stage renal failure. The patient has had no symptoms of angina or acute coronary syndrome. Subjective Date of service: 12/01/21 Principal diagnosis: Shingles, sepsis, acute renal failure, PSVT Interval history: Patient has no new cardiac complaints, on model and dye person there is atrial fibrillation, ventricular rate in the 100s. Objective Vital Signs Temp Pulse Pulse Pulse Resp Resp BP 12/01/21 10:53 94 H 139/94 12/01/21 10:00 82 12/01/21 08:05 97.7 F 86 16 12/01/21 07:54 86 139/94 12/01/21 07:45 90 16 12/01/21 05:38 97.7 F 82 18 11/30/21 22:00 90 11/30/21 20:01 97.9 F 82 18 167/88 11/30/21 19:00 130 H 22 11/30/21 15:44 97.9 F 112 H 113/87 11/30/21 14:15 98.2 F 100 H 18 151/95 11/30/21 13:43 96 H 178/96 11/30/21 13:30 73 166/75 BP Pulse Ox Pulse Ox 12/01/21 10:53 12/01/21 10:00 12/01/21 08:05 139/94 100 12/01/21 07:54 12/01/21 07:45 98 12/01/21 05:38 131/83 100 11/30/21 22:00 98 11/30/21 20:01 98 11/30/21 19:00 11/30/21 15:44 100 11/30/21 14:15 98 11/30/21 13:43 11/30/21 13:30 - Physical Examination General: Cachectic HEENT: Positive: Other (Acute shingles rash overlying left upper forehead and periorbital area) Neck: Positive: neck supple Cardiac: Positive: irregularly irregular Lungs: Positive: Decreased Breath Sounds Neuro: Positive: Weakness (Generalized lethargy) Abdomen: Positive: Soft Skin: Positive: Clear Extremities: Present: Other (Status post bilateral amputation) - Labs and Meds Coagulation 11/30/21 Range/Units Unknown PT 30.1 H (12.2-14.9) Sec. INR 2.48 H (0.87-1.13) APTT 85.1 H* (24.2-36.6) Sec. CBC 11/30/21 Range/Units 17:22 WBC 3.6 L (4.5-11.0) K/mm3 RBC 3.25 L (3.65-5.03) M/mm3 Hgb 9.0 L (10.1-14.3) gm/dl Hct 28.1 L (30.3-42.9) % Plt Count 125 L (140-440) K/mm3 Comprehensive Metabolic Panel 11/30/21 Range/Units Unknown Creatinine 3.4 H (0.6-1.2) mg/dL
--- NOTE | 2021-12-01 15:14 | Discharge Summary ---
Providers - Providers Date of Admission: 11/21/21 05:04 Date of discharge: 12/01/21 Attending physician: ZULLY WARREN MD 11/21/21 01:41 Consult to Physician [CONS] Urgent Comment: Consulting Provider: ANA HILLS Physician Instructions: Reason For Exam: renal insufficiency 11/21/21 05:04 Consult to Physician [CONS] Routine Comment: Consulting Provider: KENNETH NARVAEZ Physician Instructions: Reason For Exam: zoster 11/23/21 19:42 Speech Therapy Evaluation and Treat [CONS] Routine Reason For Exam: Swallow test /evaluate and treat dysarthria 11/24/21 04:27 Consult to Physician [CONS] Routine Comment: Consulting Provider: DARRON SALAS Physician Instructions: Reason For Exam: Supraventricular Tachycardia 11/24/21 09:01 Consult to Physician [CONS] Routine Comment: Consulting Provider: GLENDA ESTRELLA Physician Instructions: Reason For Exam: Transaminitis/herpes zoster 11/24/21 12:48 Consult to Interventional Radiology [CONS] Routine Consulting Provider: TED COSBY Reason For Exam: permacath placement Notified:: y 11/24/21 14:05 Consult to Dietitian/Nutrition [CONS] Routine Physician Instructions: Assess nutrtn needs, initiate, modify, manage TF Reason For Exam: Reason for Consult: Write/Manage Tube Feeding Reason for Consult: Write/Manage Tube Feeding 11/26/21 09:07 Consult to Physician [CONS] Routine Comment: Consulting Provider: CHAYO YADAV Physician Instructions: Reason For Exam: PEG tube placement 11/26/21 12:24 Speech Therapy Evaluation and Treat [CONS] Routine Reason For Exam: swallow evaluation, family insists re-eval 11/26/21 13:27 Speech Therapy Evaluation and Treat [CONS] Routine Reason For Exam: reeval - pt more awake, alert 11/28/21 12:58 Physical Therapy Evaluation and Treat [CONS] Routine Comment: Pt eval and treat Reason For Exam: debility Primary care physician: FAWAD URENA Hospitalization Reason for admission: Herpes zoster/shingles, AKIESRD, hyperkalemia, metabolic acidosis Condition: Fair Pertinent studies: Reviewed. Procedures: Permacath placement, modified barium swallow Hospital course: The patient is a 61-year-old female past medical history of Sufficiency, hypertension, lupus, PAD, atrial fibrillation on Eliquis, insulin- dependent type 2 diabetes mellitus, and being bedbound who presented to the ED with complaints of left supraorbital rash and pain with a previous 1 to 2 days without any loss of vision. Patient denied having had a chickenpox vaccine or zoster vaccine. On presentation to the ED, the patient was found to be hypertensive at 170/100 and tachycardic to 112. Patient also had labs are remarkable with potassium 5.2, bicarbonate 14, and creatinine 8.7. On physical exam, the patient was found to have zoster and the left-sided V1 distribution with no effect on her vision. Patient was initiated on acyclovir and analgesics for pain management. Nephrology was consulted for evaluation of her chronic renal insufficiency. Infectious disease was also consulted for management of the AV skin infection superimposed on her zoster that was found to be pansensitive Pseudomonas. Nephrology made the decision to initiate the patient on hemodialysis, and vascular surgery was consulted. The patient had a permacath placed in her right upper chest on 11/25/2021. She was then initiated on hemodialysis on the same day. Cardiology was consulted for arrhythmias (SVT + A. fib with RVR). The patient was medically managed with beta-blockade and antiarrhythmics. Patient was evaluated by physical therapy, and they recommended SNF; however, the patient's son declined. The patient endorsed having significant dysphagia prior to her hospitalization, and the patient was finally able to tolerate pured foods after undergoing a modified barium swallow. Patient is medically clear for discharge. Disposition: 01 HOME / SELF CARE / HOMELESS Final Discharge Diagnosis (Prints w/discharge instructions): Herpes zoster/shingles of left supraorbital area and forehead with superimposed Pseudomonas infection, supraventricular tachycardia, atrial fibrillation with RVR, dysphagia, ESRD on hemodialysis (newly diagnosed), elevated transaminases, hyperkalemia, hypertension, metabolic acidosis, history of recurrent CVAs, severe dysarthria, history of lupus, history of peripheral arterial disease, bilateral lower extremity amputations. Time spent for discharge: 45 min Core Measure Documentation - Palliative Care Palliative Care/ Comfort Measures: Not Applicable - Core Measures Any of the following diagnoses?: history only Exam - Constitutional Vitals: Temp Pulse Resp BP Pulse Ox 97.7 F 85 16 136/85 100 12/01/21 08:05 12/01/21 15:02 12/01/21 08:05 12/01/21 15:02 12/01/21 08:05 General appearance: Present: no acute distress, well-nourished, other (Left supraorbital herpes zoster extending into forehead) - EENT Eyes: Present: PERRL, EOM intact ENT: hearing intact, clear oral mucosa, dentition normal - Neck Neck: Present: supple, normal ROM, other (Permacath in right upper chest) - Respiratory Respiratory effort: normal Respiratory: bilateral: diminished (2 L nasal cannula) - Cardiovascular Rhythm: regular Heart Sounds: Present: S1 & S2 - Extremities Extremities: no ischemia, pulses intact, pulses symmetrical, No edema, normal temperature, normal color, abnormal (Bilateral BKA) Peripheral Pulses: within normal limits - Abdominal General gastrointestinal: Present: soft, non-tender, non-distended, normal bowel sounds Female genitourinary: Present: deferred - Rectal Rectal Exam: deferred - Integumentary Integumentary: Present: clear, warm, dry - Musculoskeletal Musculoskeletal: generalized weakness - Psychiatric Psychiatric: appropriate mood/affect, cooperative - Neurologic Neurologic: CNII-XII intact - Allied Health Allied health notes reviewed: nursing Plan Activity: advance as tolerated Diet: low salt, diabetic, other (Pured diet. NO STRAWS. CRUSH PILLS.) Additional Instructions: The patient is a 61-year-old female past medical history of. Sufficiency, hypertension, lupus, PAD, atrial fibrillation on Eliquis, insulin-dependent type 2 diabetes mellitus, and being bedbound who presented to the ED with complaints of left supraorbital rash and pain with a previous 1 to 2 days without any loss of vision. Patient denied having had a chickenpox vaccine or zoster vaccine. On presentation to the ED, the patient was found to be hypertensive at 170/100 and tachycardic to 112. Patient also had labs are remarkable with potassium 5.2, bicarbonate 14, and creatinine 8.7. On physical exam, the patient was found to have zoster and the left-sided V1 distribution with no effect on her vision. Patient was initiated on acyclovir and analgesics for pain management. Nephrology was consulted for evaluation of her chronic renal insufficiency. Infectious disease was also consulted for management of the AV skin infection superimposed on her zoster that was found to be pansensitive Pseudomonas. Nephrology made the decision to initiate the patient on hemodialysis, and vascular surgery was consulted. The patient had a permacath placed in her right upper chest on 11/25/2021. She was then initiated on hemodialysis on the same day. Cardiology was consulted for arrhythmias (SVT + A. fib with RVR). The patient was medically managed with beta-blockade and antiarrhythmics. Patient was evaluated by physical therapy, and they recommended SNF; however, the patient's son declined. The patient endorsed having significant dysphagia prior to her hospitalization, and the patient was finally able to tolerate pured foods after undergoing a modified barium swallow. Patient is medically clear for discharge. Care Plan Goals: Patient is medically clear for discharge. Assessment: The patient is a 61-year-old female past medical history of Sufficiency, hypertension, lupus, PAD, atrial fibrillation on Eliquis, insulin- dependent type 2 diabetes mellitus, and being bedbound who presented to the ED with complaints of left supraorbital rash and pain with a previous 1 to 2 days without any loss of vision. Patient denied having had a chickenpox vaccine or zoster vaccine. On presentation to the ED, the patient was found to be hypert ensive at 170/100 and tachycardic to 112. Patient also had labs are remarkable with potassium 5.2, bicarbonate 14, and creatinine 8.7. On physical exam, the patient was found to have zoster and the left-sided V1 distribution with no effect on her vision. Patient was initiated on acyclovir and analgesics for pain management. Nephrology was consulted for evaluation of her chronic renal insufficiency. Infectious disease was also consulted for management of the AV skin infection superimposed on her zoster that was found to be pansensitive Pseudomonas. Nephrology made the decision to initiate the patient on hemodialysis, and vascular surgery was consulted. The patient had a permacath placed in her right upper chest on 11/25/2021. She was then initiated on hemodialysis on the same day. Cardiology was consulted for arrhythmias (SVT + A. fib with RVR). The patient was medically managed with beta-blockade and antiarrhythmics. Patient was evaluated by physical therapy, and they recomme nded SNF; however, the patient's son declined. The patient endorsed having significant dysphagia prior to her hospitalization, and the patient was finally able to tolerate pured foods after undergoing a modified barium swallow. Patient is medically clear for discharge. Follow up with: FAWAD URENA MD [Primary Care Provider] - 7 Days Prescriptions: amLODIPine 10 mg PO QDAY #30 tablet hydrALAZINE [Apresoline TAB] 25 mg PO Q8HR #90 tablet Doxazosin [Cardura] 2 mg PO BID #60 tablet Amiodarone [Cordarone 200 MG TAB] 200 mg PO BID #60 tablet Apixaban [Eliquis] 2.5 mg PO Q12HR #60 tablet Metoprolol [Lopressor TAB] 50 mg PO Q8H #90 tablet Calcium Acetate [Phoslo] 1,334 mg PO TID #90 capsule calcitrioL [Rocaltrol] 0.5 mcg PO QDAY #30 capsule levoFLOXacin [Levaquin TAB] 500 mg PO Q48HR #7 tablet
[2021-12-01 16:39] VITALS: BP 115/67
--- NOTE | 2021-12-01 16:53 | Progress Note ---
Assessment and Plan Cultures: None A/P: 61-year-old female past medical history CKD not on HD, hypertension, lupus, PAD, bilateral lower extremity amputations #Facial shingles: Appears to be in V1 of the trigeminal nerve. This is a sensory nerve, not usually associated with retinal necrosis. #MARCUS on CKD: Renally dose medications. Unfortunately she needs acyclovir due to the above. She is pending initiation of HD. Recs: -Acyclovir held due to son's request due to AMS. Can give Valtrex on DC for simpler dosing. Would give for 5 days after lesions have crusted -Once resolved from acute infection, would recommend outpatient shingles vaccine -Outpatient ophthalmology evaluation Thank you for the consult, we will continue to follow. Javid Pablo MD [facility] ([facility]) O: [phone] F: [phone] Subjective Date of service: 12/01/21 Principal diagnosis: Shingles, sepsis, acute renal failure, PSVT Interval history: Afebrile, white count 3.6. Objective - Exam Narrative Exam: Physical Exam: Constitutional: Alert, cooperative. No acute distress Head, Ears, Nose: Normocephalic, atraumatic. External ears, nose normal Eyes: Conjunctivae/corneas clear. No icterus. No ptosis. Neck: Supple, no meningeal signs Oral: dentition fair, no thrush Cardiovascular: S1, S2 normal. Respiratory: Good air entry, clear to auscultation bilaterally GI: Soft, non-tender; bowel sounds normal. No peritoneal signs. Musculoskeletal: No pedal edema, no cyanosis. Skin: Left-sided facial shingles. Negative Archer sign Hem/Lymphatic: No palpable cervical or supraclavicular nodes. No lymphangitis Psych: Mood ok. Affect normal Neurological: Awake, alert, oriented. No gross abnormality - Constitutional Vitals: Vital Signs Temp Pulse Resp BP Pulse Ox 98.3 F 77 16 115/67 97 12/01/21 15:50 12/01/21 15:50 12/01/21 08:05 12/01/21 15:50 12/01/21 15:50 Temperature -Last 24 Hours Temperature 98.3 F Temperature 97.7 F Temperature 97.7 F Temperature 97.9 F - Labs CBC & Chem 7: 11/30/21 17:22 11/30/21 Unknown Labs: Abnormal lab results 11/30/21 Range/Units 17:22 WBC 3.6 L (4.5-11.0) K/mm3 RBC 3.25 L (3.65-5.03) M/mm3 Hgb 9.0 L (10.1-14.3) gm/dl Hct 28.1 L (30.3-42.9) % Plt Count 125 L (140-440) K/mm3
== END 2021-12-01 19:17 | disposition home health service (06) | DRG 673 ==
LOC: ED 21:26 → 4A 11-21 05:04
PROVIDERS: ADMIT Hospitalist; ATTEND Student in an Organized Health Care Education/Training Program
PROC: 0JH63XZ Insertion of Tunneled Vascular Access Device into Chest Subcutaneous Tissue and Fascia, Percutaneous Approach (ICD-10-PCS; principal; 2021-11-25)
PROC: 02H633Z Insertion of Infusion Device into Right Atrium, Percutaneous Approach (ICD-10-PCS; 2021-11-25)
PROC: B5181ZA Fluoroscopy of Superior Vena Cava using Low Osmolar Contrast, Guidance (ICD-10-PCS; 2021-11-25)
PROC: B548ZZA Ultrasonography of Superior Vena Cava, Guidance (ICD-10-PCS; 2021-11-25)
PROC: 5A1D70Z Performance of Urinary Filtration, Intermittent, Less than 6 Hours Per Day (ICD-10-PCS; 2021-11-25)
PROC: 5A1D70Z Performance of Urinary Filtration, Intermittent, Less than 6 Hours Per Day (ICD-10-PCS; 2021-11-26)
PROC: 5A1D70Z Performance of Urinary Filtration, Intermittent, Less than 6 Hours Per Day (ICD-10-PCS; 2021-11-27)
PROC: 5A1D70Z Performance of Urinary Filtration, Intermittent, Less than 6 Hours Per Day (ICD-10-PCS; 2021-11-28)
DX: I12.0 Hypertensive chronic kidney disease with stage 5 chronic kidney disease or end stage renal disease (principal); N18.6 End stage renal disease; B02.39 Other herpes zoster eye disease; E87.2 Acidosis; I47.1 Supraventricular tachycardia; B02.9 Zoster without complications; I16.0 Hypertensive urgency; I73.9 Peripheral vascular disease, unspecified; N25.81 Secondary hyperparathyroidism of renal origin; E87.5 Hyperkalemia; R47.1 Dysarthria and anarthria; Z82.49 Family history of ischemic heart disease and other diseases of the circulatory system; Z88.5 Allergy status to narcotic agent
CPT/HCPCS: 36415; 36558; 70450; 71045; 74230; 76705; 77001; 80048; 80053; 80061; 80074; 82550; 82553; 82565; 82962; 83735; 84100; 84484; 85025; 85027; 85610; 85730; 87040; 87076; 87116; 87186; 90732; 93005; 93306; 94640; G0378; J3490; J7060; C1750; C1769; C8929; J0133; J0153; J0282; J0360; J0610; J0690; J1170; J1644; J1940; J1956; J2250; J2270; J2405; J3010; J3480; J3486; J7030; J7040; J7042; J7050; Q9967; U0003